=== PATIENT | male | born 1955 | race Caucasian/White ===

== ENCOUNTER → 2016-07-11 | Outpatient (CLI) | payer OTHER ==
[~2016-07-11] MED LIST: APPLE CIDER PO; ATOR10TA82 PO; CIPR1TAB11 PO; CITA20TA9 PO; GABA-112 PO; GABA1CAP5 PO; GLC/500 PO; METF-384 PO; MULT-506 PO; NAPR1TAB9 PO; TRMO115 TOP; ZOLP10TA PO
--- NOTE | 2016-07-11 10:36 | DIAGNOSTIC IMAGING REPORT ---
CHEST 2 VIEWS ROUTINE CLINICAL HISTORY: R04.2 HemoptysisRAD COMPARISON STUDY: 12/02/2014 FINDINGS: The heart is the upper limits of normal in size. There are bilateral airspace opacities with a perihilar distribution. There is subtle residual thickening. There are no pleural effusions. There is no pneumothorax.[ IMPRESSION: Bilateral pulmonary airspace opacities. The findings could represent pulmonary hemorrhage, a pneumonia, or pulmonary edema. Clinical and radiographic follow-up is recommended. Electronically signed by: Shan Alvarado M.D. 07/11/2016 10:34 AM Dictated Date/Time: 07/11/2016 10:32 AM
[2016-07-11 12:37] LABS: BASO % 0.4 %; BASO ABS # 0.07 K/uL (0-0.2); COMPLETE YES; EOS % 3.8 %; HEMATOCRIT 40.7 % (42-52); IG% 0.7 %; LYMPH % 17.9 %; LYMPH ABS # 2.93 K/uL (1.2-3.4); MEAN CELL VOLUME 92.1 fL (80-100); MEAN CORPUSCULAR HEMOGLOBIN 30.5 pg (25-34); MEAN CORPUSCULAR HGB CONC 33.2 g/dl (32-36); MEAN PLATELET VOLUME 11.1 fL (7.4-10.4); MONO % 6.2 %; PLATELET COUNT 516 K/uL (130-400); RED BLOOD COUNT 4.42 M/uL (4.7-6.1); WHITE BLOOD COUNT 16.37 K/uL (4.8-10.8)
[2016-07-11 12:46] LABS: PROTHROMBIN TIME (PATIENT) 10.7 SECONDS (9.0-12.0)
[2016-07-11 12:57] LABS: ALT/SGPT 31 U/L (12-78); BLOOD UREA NITROGEN 20 mg/dl (7-18); BUN/CREATININE RATIO 22.1 (10-20); CARBON DIOXIDE 27 mmol/L (21-32); CHLORIDE 105 mmol/L (98-107); CREATININE 0.89 mg/dl (0.60-1.40); GLUCOSE 117 mg/dl (70-99); POTASSIUM 4.1 mmol/L (3.5-5.1); SODIUM 140 mmol/L (136-145)
[2016-07-11 13:00] LABS: ALB/GLOB RATIO 0.8 (0.9-2); ALKALINE PHOSPHATASE 101 U/L (45-117); AST/SGOT 19 U/L (15-37)
[2016-07-11 13:05] LABS: CALCIUM 9.8 mg/dl (8.5-10.1)
== END | disposition home or self-care (01) ==
LOC: C.RAD1850 10:07
PROVIDERS: ATTEND Nurse Practitioner Family
DX: R04.2 Hemoptysis (principal)

== ENCOUNTER → 2016-07-11 | Outpatient (CLI) | payer OTHER ==
[~2016-07-11] MED LIST changes: +OPTIRAY 320 IV PRN
--- NOTE | 2016-07-11 15:49 | DIAGNOSTIC IMAGING REPORT ---
CT ANGIOGRAM OF THE CHEST CLINICAL HISTORY: Hemoptysis COMPARISON STUDY: Chest CT dated 03/21/2015, chest x-ray dated 07/11/2016 TECHNIQUE: Following the IV administration of 116 mL of Optiray-320, CT angiogram of the thorax was performed from the thoracic inlet to the lung bases utilizing the pulmonary embolus protocol. Images are reviewed in the axial, sagittal, and coronal planes. IV contrast was administered without complication. MIP imaging was performed. CT DOSE: 595.50 mGycm FINDINGS: There is slight increase in the moderate mediastinal lymphadenopathy. An index right paratracheal lymph node measures 13 mm in short axis. It previously measured 11 mm in short axis. There is a lower right paratracheal lymph node measuring 18 mm in short axis. Previously measured 15 mm in short axis. There is bulky subcarinal lymphadenopathy. There are borderline enlarged hilar lymph nodes. There is no axillary lymphadenopathy. There was no evidence of thoracic aortic dilatation. There are coronary artery calcifications present. There were no pulmonary artery filling defects to indicate acute pulmonary embolism. No pleural effusions are visualized. There is radiographic evidence of emphysema most pronounced in the lung apices. There are moderately extensive airspace opacities within the right lower lobe right middle lobe and right upper lobe. Airspace opacities are also present within the left lower lobe. There are additional groundglass nodules within left upper lobe. IMPRESSION: 1. No CT evidence of acute pulmonary embolism 2. Increasing moderate mediastinal lymphadenopathy 3. Moderately extensive bilateral multilobar airspace opacities. The appearance is nonspecific. The lesions could represent pulmonary hemorrhage, atypical pulmonary edema, or an inflammatory/infectious process. Electronically signed by: Shan Alvarado M.D. 07/11/2016 3:47 PM Dictated Date/Time: 07/11/2016 3:41 PM
== END | disposition home or self-care (01) ==
LOC: C.CTS 14:36
PROVIDERS: ATTEND Nurse Practitioner Family
DX: R04.2 Hemoptysis (principal); R59.0 Localized enlarged lymph nodes; J98.4 Other disorders of lung

== ENCOUNTER → 2016-08-26 | Outpatient (CLI) | payer OTHER ==
[~2016-08-26] MED LIST changes: -OPTIRAY 320 IV PRN
--- NOTE | 2016-08-26 16:27 | DIAGNOSTIC IMAGING REPORT ---
CHEST 2 VIEWS ROUTINE CLINICAL HISTORY: R04.2 [id number] Lung infiltrate on [id number] dyspnea COMPARISON STUDY: 07/11/2016 FINDINGS: Improved bilateral parenchymal infiltrative change and/or pulmonary edema. Persistent residual interstitial and bronchovascular prominence. Heart is unremarkable in overall size. Diaphragms are smooth. IMPRESSION: Improving pulmonary edema Electronically signed by: Reji Mak M.D. 08/26/2016 4:26 PM Dictated Date/Time: 08/26/2016 4:25 PM
[2016-08-26 16:57] LABS: BASO % 0.7 %; BASO ABS # 0.08 K/uL (0-0.2); COMPLETE YES; EOS % 6.7 %; HEMATOCRIT 41.6 % (42-52); IG% 0.6 %; LYMPH % 29.5 %; LYMPH ABS # 3.59 K/uL (1.2-3.4); MEAN CELL VOLUME 89.8 fL (80-100); MEAN CORPUSCULAR HGB CONC 33.4 g/dl (32-36); MEAN PLATELET VOLUME 9.8 fL (7.4-10.4); MONO % 7.5 %; PLATELET COUNT 457 K/uL (130-400); RED BLOOD COUNT 4.63 M/uL (4.7-6.1); WHITE BLOOD COUNT 12.16 K/uL (4.8-10.8)
[2016-08-26 17:05] LABS: ALLEN TEST POS (POS); ARTERIAL BLD GAS O2 SATURATION 95.4 % (90-95); ARTERIAL BLOOD GAS HCO3 24 mmol/L (19-24); ARTERIAL BLOOD GAS PO2 77 mmHg (80-95); ARTERIAL BLOOD GAS pH 7.47 (7.35-7.45); O2 ADMINISTRATION ROOM AIR
[2016-08-26 17:12] LABS: INR 0.9 (0.9-1.1); PROTHROMBIN TIME (PATIENT) 10.1 SECONDS (9.0-12.0)
[2016-08-26 17:33] LABS: ALB/GLOB RATIO 0.8 (0.9-2); ALKALINE PHOSPHATASE 93 U/L (45-117); ALT/SGPT 44 U/L (12-78); AST/SGOT 29 U/L (15-37); BLOOD UREA NITROGEN 22 mg/dl (7-18); BUN/CREATININE RATIO 24.5 (10-20); CALCIUM 8.7 mg/dl (8.5-10.1); CARBON DIOXIDE 26 mmol/L (21-32); CHLORIDE 107 mmol/L (98-107); CREATININE 0.88 mg/dl (0.60-1.40); GLUCOSE 163 mg/dl (70-99); POTASSIUM 4.2 mmol/L (3.5-5.1); SODIUM 141 mmol/L (136-145)
== END | disposition home or self-care (01) ==
LOC: C.RAD1850 15:56
PROVIDERS: ATTEND Internal Medicine Pulmonary Disease
DX: R04.2 Hemoptysis (principal); R91.8 Other nonspecific abnormal finding of lung field; K64.9 Unspecified hemorrhoids; J81.1 Chronic pulmonary edema

== ENCOUNTER → 2016-08-28 | Outpatient (CLI) | payer OTHER ==
[~2016-08-28] MED LIST changes: +OPTIRAY 320 IV PRN
[2016-08-28 10:45] LABS: BLOOD UREA NITROGEN 18 mg/dl (7-18); BUN/CREATININE RATIO 18.9 (10-20); CALCIUM 8.8 mg/dl (8.5-10.1); CARBON DIOXIDE 25 mmol/L (21-32); CHLORIDE 103 mmol/L (98-107); CREATININE 0.96 mg/dl (0.60-1.40); GLUCOSE 146 mg/dl (70-99); POTASSIUM 4.1 mmol/L (3.5-5.1); SODIUM 138 mmol/L (136-145)
[2016-08-28 10:48] LABS: CHOLESTEROL 186 mg/dl (0-200); CHOLESTEROL/HDL RATIO 4.3; HDL CHOLESTEROL 43 mg/dl; LDL CHOLESTEROL CALCULATED 120 mg/dl; TRIGLYCERIDES 114 mg/dl (0-150); VERY LOW DENSITY LIPOPROT CALC 23 mg/dl
--- NOTE | 2016-08-28 11:10 | DIAGNOSTIC IMAGING REPORT ---
CT SCAN OF THE CHEST WITH IV CONTRAST CLINICAL HISTORY: Hemoptysis. COMPARISON STUDY: Chest CT scans dated 07/11/2016 an 09/08/2014. TECHNIQUE: Following the IV administration of 118 cc of Optiray 320, CT scan of the thorax was performed from the thoracic inlet to the upper abdomen. Images are reviewed in the axial, sagittal, and coronal planes. IV contrast was administered without complication. CT DOSE: 915.91 mGy.cm FINDINGS: Thyroid: Imaged portions of the thyroid gland are normal in size and attenuation. Thoracic aorta: There is mild atherosclerotic calcification of the thoracic aorta, which is normal in caliber and demonstrates standard 3-vessel arch anatomy. No dissection is seen. Pulmonary vasculature: The main pulmonary arteries are mildly enlarged suggesting pulmonary artery hypertension. There are no filling defects identified in the central pulmonary vessels to indicate pulmonary embolus. Note that this examination was not protocoled for evaluation of the pulmonary arteries. Heart: The heart is mildly enlarged and there is trace pericardial effusion. The coronary arteries are densely calcified. Lungs and pleural spaces: Emphysematous change is again noted. Diffuse subpleural reticulation is identified. There are foci of patchy groundglass consolidation seen throughout both lungs, greatest in the lingula, right middle lobe, and the lower lobes. This has significantly cleared from 07/11/2016. No pleural effusion is seen. The trachea and central airways are clear. Tiny calcified granulomas are observed. Mediastinum: There is mediastinal lymphadenopathy. A pretracheal node on image #117 measures 2.8 x 2.0 cm. A subcarinal node on image #146 measures 3.4 x 2.0 cm. This is similar to 07/11/2016 examination. Nancy: There is hilar adenopathy. Enlarged hilar nodes measure up to 1.3 cm in short axis. Axillae: There is no axillary lymphadenopathy. Lower neck: There are prominent supraclavicular lymph nodes. These measure up to 7 mm in short axis. Upper abdomen: The liver appears enlarged and steatotic. The spleen is not identified and presumed surgically absent. There are mildly enlarged gastrohepatic lymph nodes. These measure up to 10 mm in short axis. A celiac node on image #289 measures 12 mm short axis. The distal pancreas is surgically absent. Gynecomastia is noted. Skeletal structures: The skeletal structures are osteopenic. No lytic or blastic bony lesions are seen. IMPRESSION: 1. Cardiomegaly and emphysema. 2. There is patchy groundglass consolidation seen throughout both lungs as detailed above. This has significantly cleared from 07/11/2016. The second represents a resolving infectious/inflammatory pneumonitis. Resolving pulmonary edema or hemorrhage could have a similar appearance and clinical correlation will be required. [address] follow-up is recommended to document complete resolution. 3. Mediastinal and hilar lymphadenopathy are similar to previous. This is greater than expected for a reactive process, and could be seen in the setting of a lymphoproliferative disorder or possibly sarcoidosis. Clinical correlation will be essential. This should also be reassessed at follow-up. 4. Enlarged lymph nodes are also seen in the upper abdomen. 5. The spleen and distal pancreas are surgically absent. 6. Hepatomegaly and hepatic steatosis. 7. Additional findings as above. Electronically signed by: Omar Sumner M.D. 08/28/2016 11:09 AM Dictated Date/Time: 08/28/2016 10:59 AM
[2016-08-28 11:13] LABS: ESTIMATED AVERAGE GLUCOSE 151 mg/dl; HA1C FLAG Normal (Normal)
== END | disposition home or self-care (01) ==
LOC: C.CTS 09:50
PROVIDERS: ATTEND Internal Medicine Critical Care Medicine
DX: R04.2 Hemoptysis (principal); I51.7 Cardiomegaly; J43.9 Emphysema, unspecified; R91.8 Other nonspecific abnormal finding of lung field; R59.1 Generalized enlarged lymph nodes; R16.0 Hepatomegaly, not elsewhere classified; K76.0 Fatty (change of) liver, not elsewhere classified

== ENCOUNTER 2016-09-16 07:13 | Day surgery (SDC) | payer OTHER ==
[2016-09-04 12:33] VITALS: BMI 35.0
[~2016-09-16] VITALS: Ht 177.8 cm; Wt 110.5 kg
[~2016-09-16 07:13] MED LIST changes: -ATOR10TA82 PO; -CIPR1TAB11 PO; -GABA-112 PO; -GLC/500 PO; +LACTATED RINGER'S 1000ML 1,000 ML IV SCH; -OPTIRAY 320 IV PRN
--- NOTE | 2016-09-16 07:28 | History and Physical ---
History & Physical Date Sep 16, 2016. Chief Complaint Hemoptysis with associated pulmonary nodules, pulmonary infiltrates and mediastinal lymphadenopathy: History of Present Illness The patient is a 60 y/o male her for work-up for hemoptysis with associated pulmonary nodules, pulmonary infiltrates and mediastinal lymphadenopathy. He was initially referred to Dr Grzegorz Campo by [facility]. The patient began coughing up some blood mixed with mucus in June. He states he did not feel like he had a cold. He also noted night sweats and chills. The patient had a chest x-ray done July 11. This showed bilateral lung infiltrates. A CT scan of the chest was then done. This revealed extensive airspace opacities within the right lower lobe, right middle lobe, right upper lobe, and left lower lobe. There was also some slight increase in moderate mediastinal adenopathy. One of the nodes measured 13 millimeters and previously was 11. There was another or lymph node in the right para-tracheal area measuring 18 millimeters that previously had been 15 millimeters. Mediastinal adenopathy had been seen previously at least as far back as December 02, 2014. In fact he previously had a mediastinoscopy done by Dr. Glaser that noted lymphnode tissue with anthracotic changes, 09/26/14. The patient has a history of lung nodules previously followed by Dr. Kelly pulmonary. Ultimately the tiny nodules had disappeared. During the time of that workup he was found to have a pancreatic mass. The patient states he has pancreatic cancer. He underwent removal of the pancreatic tumor and splenectomy in November of 2014. He subsequently developed an abscess in the abdomen and had some type of drainage or surgical procedure in May of 2015. Patient quit smoking 14 years ago. He smoked 2 or more packs per day for 28 years. Alcohol use is described as 4 beers per day. The patient has been wearing 2 liters of oxygen at nighttime since his hospital stay when he had the surgery. They determined that he had a low oxygen level at night. He was never referred for a sleep study. ROS: night sweats, lethargy, fatigue, difficulty sleeping, nocturia, diffuse myalgias and arthralgias especially in the mid back and low back areas, neuropathy with numbness. Pertinent family history is that his father age 62 from pancreatic cancer. One sister is living has some type of autoimmune disease. His mother is still living and in good health at age 82. 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 [id number] Past Medical/Surgical History Medical Problems: 1. Acquired asplenia 2. Anemia 3. Bilateral upper abdominal pain 4. Blood in urine 5. Breast lump 6. Chronic obstructive pulmonary disease ( 7. Colon polyps 8. Dermatitis 9. Diabetes mellitus, type 2 10. Diabetic peripheral neuropathy 11. Diverticulosis 12. Dyshidrotic eczema 13. Elevated alkaline phosphatase level 14. Elevated ferritin 15. Elevated liver enzymes 16. LUIGI (generalized anxiety disorder) 17. Hemoptysis 18. Hemorrhoids 19. Hyperlipidemia 20. Leukocytosis 21. Lung infiltrate on CT 22. Lymphadenopathy 23. Microscopic hematuria 24. History of Neuroendocrine tumor of pancreas 25. Sleep apnea 26. Pancreatic Ca Surgical History 1. Biopsy Lung Percutaneous 2. Dental Surgery 3. Distal Pancreatectomy 4. Splenectomy Additional History Hepatic Disease: No Endocrine Disorder: Yes Kidney Disease: No Hypertension: No Heart Disease: No Bleeding Tendencies: No Infectious Diseases: No Allergies Coded Allergies: No Known Allergies (Unverified , 09/04/16) Home Medications Scheduled Citalopram Hydrobromide (Celexa), 40 MG PO QPM Gabapentin (Neurontin), 400 MG PO TID Metformin Hcl (Glucophage), 1,000 MG PO BID Multivitamin (Multivitamin), 1 TAB PO HS Naproxen (Aleve), 220 MG PO BID Zolpidem Tartrate (Ambien), 10 MG PO HS [Apple Cider], 2 TAB PO QAM Scheduled PRN Triamcinolone Acet (Triamcinolone Acetonide), 1 APPLN TOP BID PRN for PRN Physical Examination Skin: warm/dry, no rash Eyes: normal inspection, EOMI, sclerae normal ENT: normal ENT inspection, pharynx normal Head: normocephalic, atraumatic Neck: supple, no adenopathy, trachea midline Respiratory/Chest: lungs clear, normal breath sounds, no respiratory distress Cardiovascular: regular rate, rhythm, no edema, no murmur Abdomen / GI: normal bowel sounds, non tender Back: normal inspection Extremities: normal inspection, normal range of motion Neurologic/Psych: no motor/sensory deficits, alert, normal reflexes, oriented x 3 Diagnosis Hemoptysis with associated pulmonary nodules, pulmonary infiltrates and mediastinal lymphadenopathy ASA Classification: ASA Class III Plan of Treatment EBUS bronchoscopy, transbronchial biopsies and bronchial alveolar lavage for evaluation of possible: Sarcoidosis, atypical infections/tuberculosis, hypersensitivity pneumonitis or cancer or line up examiner's pneumoconiosis.
[2016-09-16 07:50] VITALS: BP 123/85; PULSE 82; TEMP 37; O2SAT 95; Ht 177.8 cm; Wt 110.5 kg
--- NOTE | 2016-09-16 07:58 | History & Physical Bridge Note ---
H&P Re-Evaluation Bridge Note: I have examined the patient, reviewed the History & Physical and in the interval since the performance of the History & Physical I have noted the following changes of clinical significance: No changes noted
[2016-09-16] MEDS ORDERED: ONDANSETRON INJ 2 MG/ML 2 ML VIAL IV PRN (08:45)
[2016-09-16] MEDS ORDERED: FENTANYL CITRATE INJ 50 MCG/1 ML 2 ML VIAL IV PRN (08:45)
[2016-09-16] MEDS ORDERED: HYDROmorphone INJ 1 MG/ML SYR IV PRN (08:45)
[2016-09-16] MEDS ORDERED: EpHEDrine SULFATE INJ 50 MG/ML AMP IV PRN (08:45)
[2016-09-16] MEDS ORDERED: ATROPINE SULFATE 0.1 MG/ML 5ML SYR IV PRN (08:45)
[2016-09-16] MEDS ORDERED: MIDAZOLAM HCL 1 MG/ML 2ML VIAL ONE (09:55)
[2016-09-16] MEDS ORDERED: FENTANYL CITRATE INJ 50 MCG/1 ML 2 ML VIAL ONE ×2 (09:55→10:42)
[2016-09-16] MEDS ORDERED: LIDOCAINE HCL 2% 2 ML VIAL (20MG/ML) ONE (10:35)
[2016-09-16] MEDS ORDERED: ONDANSETRON INJ 2 MG/ML 2 ML VIAL ONE (10:35)
[2016-09-16] MEDS ORDERED: PROPOFOL IV EMULSION 10 MG/ML 20 ML VIAL IV ONE ×2 (10:35→11:31)
[2016-09-16] MEDS ORDERED: ROCURONIUM BROMIDE 10 MG/ML 5 ML VIAL ONE (10:35)
[2016-09-16] MEDS ORDERED: GLYCOPYRROLATE INJ 0.2 MG/ML VIAL ONE (10:35)
[2016-09-16] MEDS ORDERED: DEXAMETHASONE SOD INJ 4 MG/ML VIAL ONE (10:35)
[2016-09-16] MEDS ORDERED: PHENYLEPHRINE HCL INJ 10 MG/ML VIAL ONE (10:53)
[2016-09-16] MEDS ORDERED: EpHEDrine SULFATE 50MG/5ML SYR ONE (10:53)
--- NOTE | 2016-09-16 12:00 | DIAGNOSTIC IMAGING REPORT ---
CHEST 1 VIEW FRONTAL CLINICAL HISTORY: Left lung biopsy. Bronchoscopy. COMPARISON STUDY: Chest CT 08/28/2016. FINDINGS: Total fluoroscopy time was 1 minute and 7 seconds. A single fluoroscopic spot image of the left lower chest was submitted. There is a bronchoscope seen within the left lower lobe. IMPRESSION: Fluoroscopy provided for a left-sided bronchoscopy. Electronically signed by: Leobardo Nelson M.D. 09/16/2016 11:59 AM Dictated Date/Time: 09/16/2016 11:58 AM
--- NOTE | 2016-09-16 12:04 | Bronchoscopy Procedure Note ---
Bronchoscopy Procedure Note Procedure: Flexible-Bronchoscopy, EBUS, Tbbx, GETA, BAL Consent: Obtained through the patient placed into the chart Preprocedural diagnosis: Hemoptysis (Mediastinal lymphadenopathy, Lingular GGO) Postprocedural diagnosis: Mediastinal lymphadenopathy, Lingular GGO Analgesia: GETA Sedation: GETA Procedure: The Olympus video bronchoscope and EBUS scope were used for this procedure Initially the flexible bronchoscope was used for evaluation of the airways. The ET tube was notably 4cm above the level of the belle. Trachea: Visualized portion of the trachea was anatomically within normal limits Belle: Anatomically within normal limits Right bronchial tree: Right mainstem bronchus: Anatomically within normal limits Right upper lobe: Anatomically within normal limits Bronchus intermedius: Anatomically within normal limits Right middle lobe: Anatomically within normal limits Right lower lobe: Anatomically within normal limits Findings: No significant findings noted Left bronchial tree: Left mainstem bronchus: Anatomically within normal limits Left upper lobe: Anatomically within normal limits Lingula: Anatomically within normal limits Left lower lobe: Anatomically within normal limits Findings: No significant findings noted EBUS/BRUNO: Tbbx Ramona Stations: 7: # of passes 4 R4: # of passes passes 3 L11: # of passes 3 BAL: Lingula Tbbx: Lingula x6 under fluoroscopic guidance Complications: None Follow-up: PACU
--- NOTE | 2016-09-16 12:13 | Anesthesiology Progress Note ---
Anesthesia Post Op Note Date & Time Sep 16, 2016 at 12:13 Vital Signs Pain Intensity: 0 Vital Signs Past 12 Hours Date Time Temp Pulse Resp B/P (MAP) Pulse Ox O2 Delivery O2 Flow Rate FiO2 09/16/16 12:00 90 16 120/77 96 Mask 10 09/16/16 11:50 96 16 126/89 97 Mask 10 09/16/16 11:44 36.6 98 16 124/88 97 Mask 10 09/16/16 07:50 37 82 18 123/85 (98) 95 Room Air Notes Mental Status: alert / awake / arousable, participated in evaluation Pt Amnestic to Procedure: Yes Nausea / Vomiting: adequately controlled Pain: adequately controlled Airway Patency, RR, SpO2: stable & adequate BP & HR: stable & adequate Hydration State: stable & adequate Anesthetic Complications: no major complications apparent
[2016-09-16 12:34] VITALS: BP 116/78; PULSE 87; TEMP 36.7; O2SAT 97
--- NOTE | 2016-09-16 12:36 | DIAGNOSTIC IMAGING REPORT ---
CHEST ONE VIEW PORTABLE CLINICAL HISTORY: s/p Tbbx of the Lingula COMPARISON STUDY: Chest radiograph August 26, [address] August 28, 2016. FINDINGS: There is no pneumothorax or pleural effusion. Cardiomediastinal silhouette is stable. There is minimal left lower lung opacity. IMPRESSION: 1. No pneumothorax. 2. Minimal left lower lung opacity. Electronically signed by: González Goncalves M.D. 09/16/2016 12:35 PM Dictated Date/Time: 09/16/2016 12:24 PM
[2016-09-16 13:08] VITALS: BP 111/64; PULSE 70; TEMP 36.6; O2SAT 95
--- NOTE | 2016-09-16 13:14 | Discharge Instructions ---
Discharge Instructions Date of Service Sep 16, 2016. Admission Reason for Admission: Hemoptysis, Lymphadenopathy;Pre-Op Discharge Discharge Diagnosis / Problem: Mediastinal Lymphadeonpathy with Lingular opacifications Discharge Goals Goal(s): Diagnostic testing Activity Recommendations Activity Limitations: resume your previous activity . Current Hospital Diet Patient's current hospital diet: N/A Discharge Diet Recommended Diet: Regular Diet Procedures Procedures Performed: Endobronchial Ultrasound Guided Transbronchial with 6 biopies including lingula,Transtracheal and transbronchial needle nodule status 7, R4,L11. Bronchial aveolar lavage, lingula. Pending Studies Studies pending at discharge: yes List of pending studies: Microiology and Cytopathology Laboratory Results Hemoglobin A1c Test 08/28/16 10:00 Range/Units Estimated Average Glucose 151 mg/dl Hemoglobin A1c 6.9 H 4.5-5.6 % Lipid Panel Test 08/28/16 10:00 Range/Units Triglycerides Level 114 0-150 mg/dl Cholesterol Level 186 0-200 mg/dl HDL Cholesterol 43 mg/dl Cholesterol/HDL Ratio 4.3 LDL Cholesterol, Calculated 120 mg/dl Medical Emergencies . Who to Call and When: Medical Emergencies: If at any time you feel your situation is an emergency, please call 911 immediately. . Non-Emergent Contact Non-Emergency issues call your: [employer] Call Non-Emergent contact if: temperature is above 101.5 . . "Provider Documentation" section prepared by Jf Chester. . VTE Core Measure Inpt VTE Proph given/why not?: Treatment not indicated
[2016-09-16 13:35] VITALS: BP 111/72; PULSE 77; TEMP 36.7; O2SAT 96
== END 2016-09-16 13:40 | disposition home or self-care (01) ==
LOC: C.ACU 07:13
PROVIDERS: ATTEND Internal Medicine Critical Care Medicine
DX: R59.1 Generalized enlarged lymph nodes (principal); R04.2 Hemoptysis; R91.8 Other nonspecific abnormal finding of lung field; J44.9 Chronic obstructive pulmonary disease, unspecified; I10 Essential (primary) hypertension; E11.42 Type 2 diabetes mellitus with diabetic polyneuropathy; F41.1 Generalized anxiety disorder; E78.5 Hyperlipidemia, unspecified; Z79.899 Other long term (current) drug therapy; Z90.49 Acquired absence of other specified parts of digestive tract; Z87.891 Personal history of nicotine dependence; Z83.3 Family history of diabetes mellitus; Z82.49 Family history of ischemic heart disease and other diseases of the circulatory system; Z80.0 Family history of malignant neoplasm of digestive organs; Z83.6 Family history of other diseases of the respiratory system

== ENCOUNTER → 2016-12-15 | Outpatient (CLI) | payer OTHER ==
[~2016-12-15] MED LIST changes: -LACTATED RINGER'S 1000ML 1,000 ML IV SCH
[2016-12-15 18:08] LABS: THYROID STIMULATING HORMONE 1.14 uIu/ml (0.300-4.500)
== END | disposition home or self-care (01) ==
LOC: C.LABPBG 14:40
PROVIDERS: ATTEND Nurse Practitioner Adult Health
DX: L30.9 Dermatitis, unspecified (principal); R53.83 Other fatigue

== ENCOUNTER → 2016-12-22 | Outpatient (CLI) | payer OTHER ==
--- NOTE | 2016-12-22 09:23 | DIAGNOSTIC IMAGING REPORT ---
(LIVER) ABDOMEN LIMITED CLINICAL HISTORY: 61 years-old Male presenting with HEPATIC DYSFUNCTION. TECHNIQUE: Real-time grayscale and limited color Doppler ultrasound imaging of the abdomen limited to the right upper quadrant was performed. COMPARISON: 10/13/2014. FINDINGS: Pancreas: Largely obscured due to overlying bowel gas. Liver: Hyperechogenic parenchyma with heterogeneous echotexture, likely indicating fibrosis or steatosis. The liver measures 18.8 cm in maximal sagittal dimension. No sonographic evidence of hepatic mass. Main portal vein patent with normal directional flow. Biliary: No intrahepatic biliary ductal dilatation. Common bile duct measures up to 5-6 mm in diameter. Gallbladder: Gallstones noted at the gallbladder neck. Nondependent isoechoic 4 mm focus along the wall consistent with polyp, likely cholesterol polyp, nonspecific change from prior. No significant gallbladder wall thickening, pericholecystic fluid, or inflammatory change. Right kidney: Normal in appearance. No hydronephrosis. Ascites: None. IMPRESSION: 1. Hyperechogenic liver parenchyma with heterogeneous echotexture, likely indicating fibrosis or steatosis. 2. Mild hepatomegaly. 3. Cholelithiasis. No evidence of cholecystitis or biliary ductal dilatation. 4. Subcentimeter gallbladder polyp, likely cholesterol polyp. Electronically signed by: Paco Burns M.D. 12/22/2016 9:22 AM Dictated Date/Time: 12/22/2016 9:19 AM
== END | disposition home or self-care (01) ==
LOC: C.ULTR 08:30
PROVIDERS: ATTEND Nurse Practitioner Adult Health
DX: K76.9 Liver disease, unspecified (principal); R16.0 Hepatomegaly, not elsewhere classified; K80.20 Calculus of gallbladder without cholecystitis without obstruction

== ENCOUNTER → 2017-01-15 | Outpatient (CLI) | payer OTHER ==
--- NOTE | 2017-01-15 10:19 | DIAGNOSTIC IMAGING REPORT ---
LEFT WRIST 4 VIEWS CLINICAL HISTORY: Arthritis. FINDINGS: 4 views of the left wrist are obtained. No prior studies are available for comparison at the time of dictation. The skeletal structures are well mineralized. No fracture is seen. The joint spaces of the wrist are maintained. No bony erosion is identified. The overlying soft tissues are within normal limits. IMPRESSION: Unremarkable radiographic assessment of the left wrist. Electronically signed by: Omar Sumner M.D. 01/15/2017 10:17 AM Dictated Date/Time: 01/15/2017 10:16 AM
--- NOTE | 2017-01-15 10:20 | DIAGNOSTIC IMAGING REPORT ---
R HAND MIN 3 VIEWS ROUTINE CLINICAL HISTORY: DEFORMITY arthritis. Pain. COMPARISON: None. DISCUSSION: Moderate generalized degenerative change. Slight deformity fifth metacarpal. The secondary to old posttraumatic change. Mild degenerative change interphalangeal joints. Cortical margins appear to be intact. There are no significant marginal erosions. There is no evidence for soft tissue swelling. IMPRESSION: Mild/moderate degenerative change. No acute process. The above report was generated using voice recognition software. It may contain grammatical, syntax or spelling errors. Electronically signed by: Reji Mak M.D. 01/15/2017 10:19 AM Dictated Date/Time: 01/15/2017 10:18 AM
--- NOTE | 2017-01-15 10:22 | DIAGNOSTIC IMAGING REPORT ---
L HAND MIN 3 VIEWS ROUTINE CLINICAL HISTORY: DEFORMITY pain COMPARISON: None. DISCUSSION: Mild degenerative change of the interphalangeal joints. Minimal degenerative changes intercarpal as well as carpometacarpal joints. No well-defined acute bony abnormality. No marginal erosions. There is no evidence for soft tissue swelling. IMPRESSION: Mild degenerative change. No acute process. The above report was generated using voice recognition software. It may contain grammatical, syntax or spelling errors. Electronically signed by: Reji Mak M.D. 01/15/2017 10:20 AM Dictated Date/Time: 01/15/2017 10:20 AM
--- NOTE | 2017-01-15 10:22 | DIAGNOSTIC IMAGING REPORT ---
R WRIST MIN 3 VIEWS ROUTINE CLINICAL HISTORY: M21.939 Deformity, wrist [id number] COMPARISON: None. DISCUSSION: Minimal degenerative change of the intercarpal as well as carpometacarpal joints. No significant marginal erosions. No evidence for fracture or dislocation. No abnormal soft tissue calcifications. There is no evidence for soft tissue swelling. IMPRESSION: Minimal degenerative change. No acute process. The above report was generated using voice recognition software. It may contain grammatical, syntax or spelling errors. Electronically signed by: Reji Mak M.D. 01/15/2017 10:21 AM Dictated Date/Time: 01/15/2017 10:20 AM
== END | disposition home or self-care (01) ==
LOC: C.RAD 09:10
PROVIDERS: ATTEND Nurse Practitioner Adult Health
DX: M21 Other acquired deformities of limbs (principal)

== ENCOUNTER → 2017-06-30 | Outpatient (CLI) | payer OTHER ==
[~2017-06-30] MED LIST changes: +GABA-1220 PO; -GABA1CAP5 PO
--- NOTE | 2017-06-30 10:54 | DIAGNOSTIC IMAGING REPORT ---
(CHEST) THORAX WITHOUT CLINICAL HISTORY: 61 years-old Male presenting with R59.0 Mediastinal lymphadenopathy Patient scheduled at [facility] June. TECHNIQUE: Multidetector CT imaging of the chest was performed without the use of intravenous contrast. IV contrast: None. A dose lowering technique was used consistent with the principles of ALARA (as low as reasonably achievable). COMPARISON: 08/28/2016. CT DOSE (mGy.cm): The estimated cumulative dose is 976.35 mGy.cm. FINDINGS: Support Clerk topogram: Unremarkable. On soft tissue windows, normal thyroid and thoracic inlet. Bilateral gynecomastia. Numerous prominent subcentimeter mediastinal lymph nodes measuring up to 15 mm in the short axis in the precarinal region, unchanged. Evaluation of sin limited without intravenous contrast. Atherosclerosis of the aorta. Normal heart size. Coronary artery calcification. No pericardial or pleural effusion. Hepatic steatosis. On lung windows, redemonstration of paraseptal and centrilobular emphysematous changes within the apical predominance. Minimal patchy groundglass opacity along the minor fissure in the right middle lobe. Subtle subpleural reticulation and minimal groundglass opacity in the anterior right upper lobe. Centrilobular groundglass opacity suggested in the superior segment of the right lower lobe and to a lesser extent the superior segment of the left lower lobe. Limited bronchiectasis is noted in the superior segment of the lingula as well as in the right middle lobe. Central airways patent. On bone windows, degenerative changes of the spine. IMPRESSION: 1. Minimal patchy groundglass opacity overall slightly less prevalent than on the prior exam from August and significantly less than one year ago. These nonspecific groundglass opacities can be seen in the setting of pulmonary hemorrhage as well as infection. However, given these findings and the patient's p-ANCA positive status combined with evidence of fibrotic lung changes demonstrated by bronchiectasis, these findings could represent microscopic polyangiitis. 2. Emphysema. 3. Persistent mediastinal lymphadenopathy. 4. Hepatic steatosis. Electronically signed by: Paco Burns M.D. 06/30/2017 10:52 AM Dictated Date/Time: 06/30/2017 10:43 AM
== END | disposition home or self-care (01) ==
LOC: C.CTS 10:19
PROVIDERS: ATTEND Internal Medicine Pulmonary Disease
DX: R59.0 Localized enlarged lymph nodes (principal); R91.8 Other nonspecific abnormal finding of lung field; J43.9 Emphysema, unspecified; K76.0 Fatty (change of) liver, not elsewhere classified

== ENCOUNTER 2018-06-07 10:02 | Inpatient (IN) ==
[2018-06-07] MEDS ORDERED: MAGNESIUM HYDROXIDE SUSP 30 ML UDC PO PRN (10:54)
[2018-06-07] MEDS ORDERED: ONDANSETRON INJ 2 MG/ML 2 ML VIAL IV PRN (10:54)
[2018-06-07] MEDS ORDERED: POLYETHYLENE (MIRALAX) 17 GM PACK PO PRN (10:54)
[2018-06-07] MEDS ORDERED: ALUMINUM/MAGNESIUM SUSP 30 ML UDC PO PRN (10:54)
[2018-06-07] MEDS ORDERED: INSULIN GLARGINE 20 UNIT SQ SCH (11:00)
--- NOTE | 2018-06-07 11:13 | History & Physical Report ---
Date of Service June 07, 2018 Assessment & Plan (1) Cellulitis: (2) Pancreatic cancer: (3) Hypertension: 62-year-old white male with history of hypertension , rectal bleeding , kidney disease renal failure, pancreatic cancer , pleural effusion admitted from 's office because of right lower extremity cellulitis right lower extremity cellulitis: failed outpatient oral antibiotic treatment History of pancreatic cancer possible immunocompromised Talked to Dr. Rankin, started Dapto and Rocephin, lab and blood culture sent, Has ordered Doppler ultrasound to rule out DVT hx of Hypertension, currently is 150/92, possible accelerated hypertension, hydralazine as needed for now, need to start some blood pressure medication depending on renal function Diabetic will check HbA1c, continue home dose of insulin, pharmacy glycemic control consultation Recent bronchitis /COPD exacerbation has been improved, is on tapering dose of oral prednisone required 10 days more to finish up the cough DVT prophylaxis is Lovenox, full code History of Present Illness Primary Care Provider: Harriet Carranza MD 62-year-old white male with history of hypertension , rectal bleeding , kidney disease renal failure, pancreatic cancer , pleural effusion admitted from 's office because of right lower extremity cellulitis Per report patient is having right lower extremity Medial side skin red and erythema associated tender, he has been follow-up with Dr. Rankin's office, was given Cefadroxil for several days, it has not getting better, antibiotic was changed to Doxycycline last Thursday which was 3 days ago, however, the local red erythema and pain is getting worse, and spreading up to medial thigh, therefore Dr. Rankin send him to the hospital. Patient reports occasional cough otherwise no fever and chill, denies diarrhea constipation Allergies Allergy/AdvReac Type Severity Reaction Status Date / Time No Known Allergies Allergy Unverified 09/16/16 07:56 Home Medications Home Medications Medication Instructions Recorded Confirmed Type Basaglar KwikPen U-100 Insulin 20 units SUBCUT QAM 06/07/18 06/07/18 History Celexa 40 mg PO HS 06/07/18 06/07/18 History cefadroxil PO BID 06/07/18 History doxycycline calcium 100 mg PO BID 06/07/18 06/07/18 History gabapentin 400 mg PO TID 06/07/18 06/07/18 History leflunomide 20 mg PO HS 06/07/18 06/07/18 History metformin 1,000 mg PO BID 06/07/18 06/07/18 History prednisolone 40 mg PO QAM 06/07/18 History zolpidem [Ambien] 10 mg PO HS PRN 06/07/18 06/07/18 History Past Med/Surg History Medical History Arthritis Black lung disease Diabetes mellitus Pancreatic cancer Porphyria Sleep apnea Surgical History H/O resection of pancreas H/O splenectomy Social History Preferred Language: Citizen Of [place] Communication Ability: Effective Journal Clerk Required: No Beliefs That Will Affect Care: None Current Living Situation: Spouse Other Information That Helps Us Care for You: No Feels Safe at Home: Yes Safety Concerns: Feels Safe At This Time Smoking Status: Former smoker Hx Alcohol Use: Yes Hx Substance Use: No Review of Systems All systems reviewed & are unremarkable except as noted in HPI & below Physical Exam Vital Signs (Past 24 Hours): Last Vital Signs Temp 36.8 C 06/07/18 10:28 Pulse 89 06/07/18 10:28 Resp 17 06/07/18 10:28 BP 158/92 H 06/07/18 10:28 Pulse Ox 98 06/07/18 10:28 Physical Exam: General Appearance: WD/WN, mild obesity, pleasant, no apparent distress, Eyes: normal inspection, PERRL, EOMI, sclerae normal ENT: normal ENT inspection, hearing grossly normal, pharynx normal Neck: supple, no adenopathy, thyroid normal, no JVD, no carotid bruits, trachea midline Respiratory/Chest: chest non-tender, normal breath sounds, no respiratory distress, no accessory muscle use, breath sounds, rales, wheezing Cardiovascular: regular rate, rhythm, no JVD, no murmur Abdomen: normal bowel sounds, non tender, soft, no organomegaly, Extremities: Left lower extremity ankle minimal edema, medial part has erythema spreading up to medal thigh, local mild tender in palpation, no open wound or drainages normal range of motion, non-tender, normal inspection, no calf tenderness, normal capillary refill, pelvis stable, joint has no limited range of motion, capillary refill is normal, no cyanosis clubbing Neurologic/Psychiatric: baton twirler II-XII nml as tested, no motor/sensory deficits, alert, normal mood/affect, oriented x 3 Skin: normal color, warm/dry, no rash Lymphatic: no adenopathy Results & Data Laboratory Results pending Diagnostic Findings pending
[2018-06-07] MEDS ORDERED: HydrALAZINE HCL 20 MG/ML VIAL IV PRN (11:28)
[2018-06-07] MEDS ORDERED: DAPTOmycin 300 MG in SYRINGE 0 ML IV ONE (11:30)
[2018-06-07 11:50] LABS: Basophils # (auto) 0.01 K/uL (0-0.2); Basophils % (auto) 0.1 %; Hematocrit (blood only) 43.4 % (42-52); Hemoglobin 14.7 g/dL (14.0-18.0); Immature Granulocytes # (auto) 0.09 K/uL (0.00-0.02); Immature Granulocytes % (auto) 0.5 %; Lymphocytes # (auto) 1.36 K/uL (1.2-3.4); Mean Corpuscular Volume 90.6 fL (80-100); Mean Platelet Volume 10.9 fL (7.4-10.4); Monocytes # (auto) 1.04 K/uL (0.11-0.59); Monocytes % (auto) 6.1 %; Neutrophils # (auto) 14.56 K/uL (1.4-6.5); Neutrophils % (auto) 85.3 %; Nucleated RBC # (auto) 0.02 K/uL (0-0); Nucleated RBC % (auto) 0.1 %; Platelet Count 444 K/uL (130-400); RDW Coefficient of Variation 15.1 % (11.5-14.5); Red Blood Count 4.79 M/uL (4.7-6.1); White Blood Count 17.06 K/uL (4.8-10.8)
[2018-06-07] MEDS ORDERED: PHARMACY GLYCEMIC MGMT CONSULT PRN (11:59)
[2018-06-07] MEDS: cefTRIAXone SODIUM 1,000 MG in DEXTROSE 5% 50 ML IV SCH (12:05)
[2018-06-07 12:06] LABS: Prothrombin Time 10.3 Seconds (9.0-12.0)
[2018-06-07 12:07] LABS: Mean Corpuscular Hgb Conc 33.9 g/dL (32-36)
[2018-06-07 12:19] LABS: Albumin Level 3.4 gm/dl (3.4-5.0); BUN Creatinine Ratio 22.6 (10-20); Bilirubin Direct 0.1 mg/dl (0-0.2); C Reactive Protein 0.33 mg/dl (0-0.29); Calcium 9.1 mg/dl (8.5-10.1); Creatinine Clr Calc Pharmacy 99.6 ml/min; Est GFR (African American) 93.3; Est GFR (Non-African American) 80.5; Potassium 4.3 mmol/L (3.5-5.1)
[2018-06-07 12:21] LABS: Bilirubin,Total 0.5 mg/dl (0.2-1); Total Protein 7.6 gm/dl (6.4-8.2)
[2018-06-07] MEDS: ACETAMINOPHEN 325 MG TAB PO PRN ×2 (12:39→20:56)
[2018-06-07] MEDS: ENOXAPARIN INJ 40 MG/0.4 ML SYR SQ SCH (13:17)
[2018-06-07 13:33] LABS: Estimated Average Glucose 212 mg/dl
--- NOTE | 2018-06-07 13:54 | Pharmacy Report ---
Pharmacy Abx/Gly Intl Consult - Date of Service June 07, 2018 - [facility] Pharmacy has been consulted by Dr. Mcgrath to manage glycemic control for this patient as per the Pharmacy & Therapeutics Committee approved dosing protocols. - Subjective The patient is a 62 year old M admitted on 06/07/18 10:09. - Objective Vital Signs (Past 12hrs): Vital Signs Temp Pulse Resp BP Pulse Ox 06/07/18 10:28 36.8 C 89 17 158/92 H 98 Accuchecks BSG (last 24hrs): 06/07/18 06/07/18 06/07/18 11:20 11:20 12:00 Glucose 286 H Cancelled POC Glucose 267 H HbA1c: Hemoglobin A1c 9.0 % (4.5-5.6) H 06/07/18 11:20 Lab Results (24hrs): Laboratory Results - last 24 hr 06/07/18 06/07/18 06/07/18 11:20 11:20 11:20 WBC 17.06 H RBC 4.79 Hgb 14.7 Hct 43.4 MCV 90.6 MCH 30.7 MCHC 33.9 RDW Std Deviation 50.0 H RDW Coeff of Shira 15.1 H Plt Count 444 H MPV 10.9 H Immature Gran % (Auto) 0.5 Neut % (Auto) 85.3 Lymph % (Auto) 8.0 [place] % (Auto) 6.1 Eos % (Auto) 0.0 Baso % (Auto) 0.1 Immature Gran # (Auto) 0.09 H Neut # (Auto) 14.56 H Lymph # (Auto) 1.36 [place] # (Auto) 1.04 H Eos # (Auto) 0.00 Baso # (Auto) 0.01 Absolute Nucleated RBC 0.02 H Nucleated RBC % (auto) 0.1 ESR 26 H PT INR Sodium 135 L Potassium 4.3 Chloride 102 Carbon Dioxide 27 Anion Gap 6.0 BUN 23 H Creatinine 1.01 Est Cr Clr Drug Dosing 99.6 Est GFR ( Amer) 93.3 Est GFR (Non-Af Amer) 80.5 BUN/Creatinine Ratio 22.6 H Glucose 286 H POC Glucose Estimat Average Glucose Hemoglobin A1c Calcium 9.1 Total Bilirubin 0.5 Direct Bilirubin 0.1 AST 20 ALT 36 Alkaline Phosphatase 102 C-Reactive Protein 0.33 H Total Protein 7.6 Albumin 3.4 06/07/18 06/07/18 06/07/18 11:20 11:20 11:30 WBC RBC Hgb Hct MCV MCH MCHC RDW Std Deviation RDW Coeff of Shira Plt Count MPV Immature Gran % (Auto) Neut % (Auto) Lymph % (Auto) [place] % (Auto) Eos % (Auto) Baso % (Auto) Immature Gran # (Auto) Neut # (Auto) Lymph # (Auto) [place] # (Auto) Eos # (Auto) Baso # (Auto) Absolute Nucleated RBC Nucleated RBC % (auto) ESR PT 10.3 INR 1.0 Sodium Cancelled Potassium Cancelled Chloride Cancelled Carbon Dioxide Cancelled Anion Gap Cancelled BUN Cancelled Creatinine Cancelled Est Cr Clr Drug Dosing Cancelled Est GFR ( Amer) Cancelled Est GFR (Non-Af Amer) Cancelled BUN/Creatinine Ratio Cancelled Glucose Cancelled POC Glucose Estimat Average Glucose 212 Hemoglobin A1c 9.0 H Calcium Cancelled Total Bilirubin Direct Bilirubin AST ALT Alkaline Phosphatase C-Reactive Protein Total Protein Albumin 06/07/18 06/07/18 11:30 12:00 WBC RBC Hgb Hct MCV MCH MCHC RDW Std Deviation RDW Coeff of Shira Plt Count MPV Immature Gran % (Auto) Neut % (Auto) Lymph % (Auto) [place] % (Auto) Eos % (Auto) Baso % (Auto) Immature Gran # (Auto) Neut # (Auto) Lymph # (Auto) [place] # (Auto) Eos # (Auto) Baso # (Auto) Absolute Nucleated RBC Nucleated RBC % (auto) ESR PT INR Sodium Potassium Chloride Carbon Dioxide Anion Gap BUN Creatinine Cancelled Est Cr Clr Drug Dosing Cancelled Est GFR ( Amer) Cancelled Est GFR (Non-Af Amer) Cancelled BUN/Creatinine Ratio Glucose POC Glucose 267 H Estimat Average Glucose Hemoglobin A1c Calcium Total Bilirubin Direct Bilirubin AST ALT Alkaline Phosphatase C-Reactive Protein Total Protein Albumin Micro Results: 06/07/18 11:20 Blood Culture - Pending Blood 06/07/18 11:29 Blood Culture - Pending Blood - Recent Pertinent Medications Recent Pertinent Medications/Risk Factors for Insulin Resist: Outpatient Anti-diabetic Regimen: * Basaglar 20 units daily * Metformin 1000mg BIDM * A1c = 9.0 % 06/07/18 - Assessment Assessment & Plan: ASSESSMENT: * Mr. Tony is a 62 year old male with Type 2 diabetes. His home regimen currently consists of Basaglar 20 units daily and Metformin 1000mg BIDM. His A1C, as of 06/07/18, is 9.0%. This is an improvement from his last A1C of 10.2% on 09/23/17, but would like to achieve an A1C closer to 7.5%. Patient also has a history of HTN, COPD and pancreatic cancer. * Patient is on a Prednisone Taper: 40mg today and tomorrow, and 10mg daily x 5 days starting 06/09/18 - Plan INPATIENT GLYCEMIC CONTROL: Oral Agents * Hold outpatient oral diabetes medications. Basal Insulin * Patient took his Basaglar 20 units before his surgery this morning. * Lantus scale is set for tonight: * 20 units if BSG <180 mg/dL * 25 units if BSG 180+ Bolus Insulin * NovoLog per scale ACHS or Q6hrs while NPO * Goal Range: Low 110 mg/dL - High 140 mg/dL * Correction Factor: 20 mg/dL/unit * Nutritional / Prandial insulin per carb ratio of 1 unit per 7 grams CHO consumed * Will order additional checks for 0000, and 0400. * Please note that the plan above was derived based on current level of insulin resistance and hospital stress. These recommendations are appropriate for inpatient admission only. Plan of care upon discharge will need to be reassessed to avoid potential outpatient hypo/hyperglycemia. Pharmacy will follow patient and adjust orders on a daily basis. Thank you for allowing us to participate in this patients care.
[2018-06-07] MEDS: INSULIN ASPART 100 UNITS/ML 3 ML PEN SC SCH ×3 (13:58→21:02)
--- NOTE | 2018-06-07 14:04 | Ultrasound Report ---
ULTRASOUND RIGHT LOWER EXTREMITY VENOUS CLINICAL HISTORY: Lower extremity edema. Cellulitis. COMPARISON STUDY: No priors. TECHNIQUE: Real-time, grayscale, and color Doppler sonography of the deep veins of the right lower ex tremity was performed from the inguinal crease to the calf. Compression and augmentation were utilize d. FINDINGS: There is no sonographic evidence of deep venous thrombosis identified in the right lower ex tremity. The common femoral, superficial femoral, and popliteal veins are patent and normally simran sible. The greater saphenous vein and the profunda femoris vein at the junction with the common femor al vein are clear. Occlusive superficial venous thrombus is seen within the greater saphenous vein fr om the thigh to the calf. The visualized calf veins are patent. IMPRESSION: 1. There is no sonographic evidence of deep venous thrombosis identified in the right lower extremity . 2. Extensive occlusive superficial venous thrombus is seen within the greater saphenous vein extendin g from the thigh to the calf. Electronically signed by: Omar Sumner M.D. 06/07/2018 2:02 PM
[2018-06-07] MEDS: GABAPENTIN 400 MG CAP PO SCH ×2 (14:14→21:01)
[2018-06-07] MEDS: ZOLPIDEM TARTRATE 5 MG TAB PO PRN (20:57)
[2018-06-07] MEDS: predniSONE 20 MG TAB PO SCH (20:57)
[2018-06-07] MEDS: LEFLUNOMIDE 10 MG TAB PO SCH (20:58)
[2018-06-07] MEDS ORDERED: predniSONE 10 MG TABLET PO SCH (21:00)
[2018-06-07] MEDS: CITALOPRAM 40 MG TAB PO SCH (21:01)
[2018-06-07] MEDS: INSULIN GLARGINE SOLOSTAR 100 UNITS/ML 3 ML PEN SC SCH (22:03)
[2018-06-08] MEDS: INSULIN ASPART 100 UNITS/ML 3 ML PEN SC SCH ×6 (01:03→20:46)
[2018-06-08] MEDS: GABAPENTIN 400 MG CAP PO SCH ×3 (08:00→20:44)
[2018-06-08] MEDS: INSULIN GLARGINE SOLOSTAR 100 UNITS/ML 3 ML PEN SC SCH ×2 (08:56→20:45)
--- NOTE | 2018-06-08 10:06 | Infectious Disease Consult ---
Date of Consultation June 08, 2018 Assessment & Plan (1) Cellulitis, [age]-year-old male with possible recurrent right lower extremity cellulitis, but I am worried about the possibility of recurrent superficial thrombophlebitis, possibly related to his previous pancreatic cancer. For now, we will continue on current antibiotics pending final culture results. Will discuss with hospitalist service the need for possible anticoagulation such as with Eliquis. Will follow. (2) Superficial thrombophlebitis of right leg: History of Present Illness Reason for Consultation: Cellulitis Attending Physician: Jf Maloney MD History of Present Illness 62-year-old male well-known to me with history of pancreatic cancer status post resection with splenectomy 3-1/2 years ago, who has had several bouts of lower extremity cellulitis, suppressive therapy with cefadroxil. 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 He had been doing well until last week when he developed increasing redness and swelling of his right leg extending into his right thigh. Doxycycline was added for 2 days but patient worsened, was seen in the office yesterday and referred for admission. He was started empirically on daptomycin and ceftriaxone. Has noted little improvement since yesterday. Has had lower extremity Doppler ultrasound, and shows evidence of superficial thrombophlebitis. However white count is elevated. Cultures are pending. Has had low-grade fever. Pain cu rrently 2 out of 10 in intensity right leg. Allergies Allergy/AdvReac Type Severity Reaction Status Date / Time No Known Allergies Allergy Unverified 09/16/16 07:56 Home Medications Home Medications Medication Instructions Recorded Confirmed Type Ruth Moffett U-100 Insulin 20 units SUBCUT QAM 06/07/18 06/07/18 History Celexa 40 mg PO HS 06/07/18 06/07/18 History cefadroxil PO BID 06/07/18 History doxycycline calcium 100 mg PO BID 06/07/18 06/07/18 History gabapentin 400 mg PO TID 06/07/18 06/07/18 History leflunomide 20 mg PO HS 06/07/18 06/07/18 History metformin 1,000 mg PO BID 06/07/18 06/07/18 History prednisolone 40 mg PO QAM 06/07/18 History zolpidem [Ambien] 10 mg PO HS PRN 06/07/18 06/07/18 History Patient History Medical History Arthritis Black lung disease Diabetes mellitus Pancreatic cancer Porphyria Sleep apnea Surgical History H/O resection of pancreas H/O splenectomy Social History Preferred Language: [place] Communication Ability: Effective Lumber Tripper Required: No Beliefs That Will Affect Care: None Current Living Situation: Spouse Other Information That Helps Us Care for You: No Feels Safe at Home: Yes Safety Concerns: Feels Safe At This Time Smoking Status: Former smoker Hx Alcohol Use: Yes Hx Substance Use: No Review of Systems All systems were reviewed and are negative except as per HPI Physical Exam Vital Signs (Past 24 Hours): Last Vital Signs Temp 36.7 C 06/08/18 07:20 Pulse 82 06/08/18 07:20 Resp 16 06/08/18 07:20 BP 146/96 H 06/08/18 07:20 Pulse Ox 94 06/08/18 07:20 Constitutional: WD/WN, vitals as above comfortable; no acute distress Eyes: PERRL, conjunctivae normal, anicteric sclerae ENMT: external ear and nose normal, oropharynx normal Neck: trachea midline, no thyromegaly neck nontender Respiratory: normal respiratory effort, lungs clear to auscultation normal percussion; does not use accessory muscles Cardiovascular: Rate/Rhythm: regular rate and regular rhythm Heart Sounds: normal S1 and normal S2; no gallop, no murmur and no cardiac rub Vessels: normal peripheral pulses; no JVD Gastrointestinal (Abdomen): normal bowel sounds, soft, nontender, no hepatosplenomegaly Musculoskeletal: no cyanosis or clubbing, extremities motor strength 5/5 Spine: thoracic spine normal to inspection and lumbar spine normal to inspection; no cervical spinal tenderness Skin: no rashes, warm and dry normal turgor and + erythema (Patchy erythema right medial leg involving thigh and below the knee, area tender, palpable cords) Neurologic: patellar DTR's 2+ bilat, sensation intact no focal motor deficits Psychiatric: A+Ox3, euthymic affect Orientation: cooperative Lymphatic: no cervical or axillary lymphadenopathy no inguinal lymphadenopathy Results & Data Laboratory Results Short CBC 06/07/18 Range/Units 11:20 WBC 17.06 H (4.8-10.8) K/uL Hgb 14.7 (14.0-18.0) g/dL Hct 43.4 (42-52) % Plt Count 444 H (130-400) K/uL BMP 06/07/18 06/07/18 06/07/18 11:20 11:20 11:30 Sodium 135 L Cancelled Potassium 4.3 Cancelled Chloride 102 Cancelled Carbon Dioxide 27 Cancelled BUN 23 H Cancelled Creatinine 1.01 Cancelled Cancelled Glucose 286 H Cancelled Calcium 9.1 Cancelled Liver Function 06/07/18 Range/Units 11:20 Total Bilirubin 0.5 (0.2-1) mg/dl Direct Bilirubin 0.1 (0-0.2) mg/dl AST 20 (15-37) U/L ALT 36 (12-78) U/L Alkaline Phosphatase 102 (45-117) U/L Albumin 3.4 (3.4-5.0) gm/dl Diagnostic Findings ULTRASOUND RIGHT LOWER EXTREMITY VENOUS CLINICAL HISTORY: Lower extremity edema. Cellulitis. COMPARISON STUDY: No priors. TECHNIQUE: Real-time, grayscale, and color Doppler sonography of the deep veins of the right lower extremity was performed from the inguinal crease to the calf. Compression and augmentation were utilized. FINDINGS: There is no sonographic evidence of deep venous thrombosis identified in the right lower extremity. The common femoral, superficial femoral, and popliteal veins are patent and normally compressible. The greater saphenous vein and the profunda femoris vein at the junction with the common femoral vein are clear. Occlusive superficial venous thrombus is seen within the greater saphenous vein from the thigh to the calf. The visualized calf veins are patent. IMPRESSION: 1. There is no sonographic evidence of deep venous thrombosis identified in the right lower extremity. 2. Extensive occlusive superficial venous thrombus is seen within the greater saphenous vein extending from the thigh to the calf. Electronically signed by: Omar Sumner M.D. 06/07/2018 2:02 PM
[2018-06-08] MEDS: ENOXAPARIN INJ 40 MG/0.4 ML SYR SQ SCH (10:14)
[2018-06-08] MEDS: cefTRIAXone SODIUM 1,000 MG in DEXTROSE 5% 50 ML IV SCH (11:52)
[2018-06-08] MEDS: RIVAROXABAN 15 MG TAB PO SCH ×2 (12:02→20:45)
[2018-06-08] MEDS: ACETAMINOPHEN 325 MG TAB PO PRN (15:25)
--- NOTE | 2018-06-08 15:39 | Hospitalist Progress Note ---
Date of Service June 08, 2018 Assessment & Plan (1) Cellulitis: continue Daptomycin and Rocephin, some clinical response already today treat concurrent superficial thrombophlebitis (2) Superficial thrombophlebitis of right leg: occlusive and extensive from thigh to below the knee will treat with Xarelto BID x 3 weeks then 20mg daily x 6 months some swelling in right leg (3) Pancreatic cancer: s/p resection several years ago (4) Hypertension: continue to monitor BP, using Hydralazine PRN Subjective patient says that the pain in right thigh is the same, redness reduced slightly reviewed ID recommendations reviewed venous doppler results, showing extensive clot in greater saphenous vein discussed treating with patient, he agrees reviewed labs Review of Systems All systems reviewed & are unremarkable except as noted in HPI & below Physical Exam Vital Signs (Past 24 Hours): Last Vital Signs Temp 37.0 C 06/08/18 15:27 Pulse 94 H 06/08/18 15:27 Resp 19 06/08/18 15:27 BP 152/94 H 06/08/18 15:27 Pulse Ox 95 06/08/18 15:27 Constitutional: WD/WN, vitals as above + obese Eyes: PERRL, conjunctivae normal, anicteric sclerae ENMT: external ear and nose normal, oropharynx normal Neck: trachea midline, no thyromegaly Respiratory: normal respiratory effort, lungs clear to auscultation Cardiovascular: RRR, no murmur, no edema Gastrointestinal (Abdomen): normal bowel sounds, soft, nontender, no hepatosplenomegaly Musculoskeletal: no cyanosis or clubbing, extremities motor strength 5/5 Skin: + rash (right medial thigh, warm, tender, skin tense in right calf as well, red) Neurologic: patellar DTR's 2+ bilat, sensation intact and PERRL, EOMI, accommodation nl, no face palsy, no dysarthria Psychiatric: A+Ox3, euthymic affect Lymphatic: no cervical or axillary lymphadenopathy Results & Data Laboratory Results Laboratory Results - last 24 hr 06/07/18 06/07/18 06/07/18 17:04 20:29 23:48 POC Glucose 273 H 213 H 76 06/08/18 06/08/18 06/08/18 04:06 08:00 12:10 POC Glucose 193 H 181 H 165 H Diagnostic Findings ULTRASOUND RIGHT LOWER EXTREMITY VENOUS CLINICAL HISTORY: Lower extremity edema. Cellulitis. COMPARISON STUDY: No priors. TECHNIQUE: Real-time, grayscale, and color Doppler sonography of the deep veins of the right lower extremity was performed from the inguinal crease to the calf. Compression and augmentation were utilized. FINDINGS: There is no sonographic evidence of deep venous thrombosis identified in the right lower extremity. The common femoral, superficial femoral, and popliteal veins are patent and normally compressible. The greater saphenous vein and the profunda femoris vein at the junction with the common femoral vein are clear. Occlusive superficial venous thrombus is seen within the greater saphenous vein from the thigh to the calf. The visualized calf veins are patent. IMPRESSION: 1. There is no sonographic evidence of deep venous thrombosis identified in the right lower extremity. 2. Extensive occlusive superficial venous thrombus is seen within the greater saphenous vein extending from the thigh to the calf. Medications Administered Current Inpatient Medications Acetaminophen (Tylenol) 650 mg PO Q4H PRN PRN Reason: pain/fever Stop: 07/07/18 10:53 Last Admin: 06/08/18 15:25 Dose: 650 mg Documented by: Al Hydrox/Mg Hydrox/Simethicone (Maalox) 30 ml PO Q6H PRN PRN Reason: Dyspepsia Stop: 07/07/18 10:53 Citalopram Hydrobromide (Celexa) 40 mg PO QPM [facility] Stop: 07/07/18 20:59 Last Admin: 06/07/18 21:01 Dose: 40 mg Documented by: Gabapentin (Neurontin) 400 mg PO TID [facility] Stop: 07/07/18 13:59 Last Admin: 06/08/18 13:02 Dose: 400 mg Documented by: Hydralazine HCl (Hydralazine Hcl) 20 mg IV Q6 PRN PRN Reason: Hypertension Stop: 07/07/18 11:27 Ceftriaxone Sodium 1,000 mg/ (Dextrose) 50 mls @ 100 mls/hr IV Q24H [facility]; Protocol Stop: 06/17/18 11:59 Last Infusion: 06/08/18 12:29 Dose: Infused Documented by: Insulin Aspart (Novolog Flexpen) 0 units SC ACHS [facility] Stop: 07/07/18 12:59 Last Admin: 06/08/18 13:02 Dose: 9 units Documented by: Insulin Glargine (Lantus Solostar Pen) 0 units SC BID [facility]; Protocol Stop: 07/07/18 20:59 Last Admin: 06/08/18 08:56 Dose: 20 units Documented by: Leflunomide (Arava) 20 mg PO HS [facility] Stop: 07/07/18 20:59 Last Admin: 06/07/18 20:58 Dose: 20 mg Documented by: Magnesium Hydroxide (Milk Of Magnesia) 30 ml PO Q6H PRN PRN Reason: Constipation Stop: 07/07/18 10:53 Miscellaneous Information (Consult Glycemic Management Pharmacy) 1 ea N/A UD PRN PRN Reason: Consult Stop: 07/07/18 11:58 Ondansetron HCl (Zofran) 4 mg IV Q6H PRN PRN Reason: Nausea Stop: 07/07/18 10:53 Polyethylene Glycol (Miralax Powder Packet) 17 gm PO DAILY PRN PRN Reason: Constipation Stop: 07/07/18 10:53 Prednisone (Prednisone) 10 mg PO HS [facility] Stop: 06/13/18 21:01 Prednisone (Prednisone) 40 mg PO HS [facility] Stop: 06/08/18 21:01 Last Admin: 06/07/18 20:57 Dose: 40 mg Documented by: Rivaroxaban (Xarelto) 15 mg PO BID [facility] Stop: 06/28/18 21:01 Last Admin: 06/08/18 12:02 Dose: 15 mg Documented by: Zolpidem Tartrate (Ambien) 5 mg PO HS PRN PRN Reason: Sleep Stop: 07/07/18 10:53 Last Admin: 06/07/18 20:57 Dose: 5 mg Documented by:
[2018-06-08] MEDS: predniSONE 20 MG TAB PO SCH (20:44)
[2018-06-08] MEDS: CITALOPRAM 40 MG TAB PO SCH (20:45)
[2018-06-08] MEDS: LEFLUNOMIDE 10 MG TAB PO SCH (20:45)
[2018-06-08] MEDS: ZOLPIDEM TARTRATE 5 MG TAB PO PRN (20:49)
[2018-06-09 07:53] VITALS: TEMP 98.2; O2SAT 94
[2018-06-09] MEDS: RIVAROXABAN 15 MG TAB PO SCH (08:35)
[2018-06-09] MEDS: GABAPENTIN 400 MG CAP PO SCH (08:35)
[2018-06-09] MEDS: INSULIN ASPART 100 UNITS/ML 3 ML PEN SC SCH ×2 (08:43→13:08)
[2018-06-09] MEDS: INSULIN GLARGINE SOLOSTAR 100 UNITS/ML 3 ML PEN SC SCH (09:20)
--- NOTE | 2018-06-09 10:04 | Pharmacy Report ---
Pharmacy Glycemic Short Note 2 - Date of Service June 09, 2018 - Glycemic Short BSG Results (Last 24 hours): 06/08/18 06/08/18 06/08/18 12:10 17:05 20:35 POC Glucose 165 H 123 H 112 H 06/09/18 08:23 POC Glucose 237 H OUTPATIENT ANTIDIABETIC REGIMEN: * Basaglar 20 units daily * Metformin 1000mg BIDM * A1c = 9.0 % 06/07/18 ASSESSMENT: 06/09 * Mr. Tony received 74 units of insulin yesterday (40 of this was basal) * He received 40 mg of prednisone last night but this will be tapered to 10 mg this evening, so I am anticipating a reduction in insulin requirements * Fasting BSG elevated this AM -> this is most likely due to PM administration of prednisone. He will receive higher dose of Lantus this AM. * Will plan to reduce Lantus dose this evening to max of 40 units that he could receive today if BSGs remain elevated. Note: insulin calculator estimates based on wt/stress level of 2 = basal of 20 units BID * Pre-meal BSGs well controlled yesterday -> will continue same CF/CR for today PLAN FOR INPATIENT GLYCEMIC CONTROL: * Continue to hold outpatient oral diabetes medications - resume 1-2 days prior to discharge to aid in transition of care * Basal insulin - decrease scale starting this evening, will need to reassess tomorrow w/ reduction in steroid dose * Lantus SQ BID per the following scale: * 10 units for BSG < 200 * 15 units for BSG 200 or above * Bolus insulin - no change * NovoLog per scale ACHS or Q6hrs while NPO * Goal Range: Low 110 mg/dL - High 140 mg/dL * Correction Factor: 20 mg/dL/unit * Nutritional / Prandial insulin per carb ratio of 1 unit per 7 grams CHO consumed PLAN FOR DISCHARGE: * A1c has improved but remains above goal. CDE notes that patient reports increased BSGs at home. Recommend to increase Basaglar on discharge and f/u closely w/ outpatient provider. Patient may eventually need mealtime insulin to aid with BSG control. * Recommendations: Increase Basaglar to 25 units once daily Continue metformin 1 gm BID
[2018-06-09] MEDS: cefTRIAXone SODIUM 1,000 MG in DEXTROSE 5% 50 ML IV SCH (12:36)
[2018-06-09 12:59] VITALS: BP 131/81; PULSE 70
--- NOTE | 2018-06-09 16:10 | Discharge Summary ---
Date of Service June 09, 2018 Admission HPI Per Admitting Provider 62-year-old white male with history of hypertension , rectal bleeding , kidney disease renal failure, pancreatic cancer , pleural effusion admitted from 's office because of right lower extremity cellulitis Per report patient is having right lower extremity Medial side skin red and erythema associated tender, he has been follow-up with Dr. Rankin's office, was given Cefadroxil for several days, it has not getting better, antibiotic was changed to Doxycycline last Thursday which was 3 days ago, however, the local red erythema and pain is getting worse, and spreading up to medial thigh, therefore Dr. Rankin send him to the hospital. Patient reports occasional cough otherwise no fever and chill, denies diarrhea constipation Admission Exam Per Admitting Provider General Appearance: WD/WN, mild obesity, pleasant, no apparent distress, Eyes: normal inspection, PERRL, EOMI, sclerae normal ENT: normal ENT inspection, hearing grossly normal, pharynx normal Neck: supple, no adenopathy, thyroid normal, no JVD, no carotid bruits, trachea midline Respiratory/Chest: chest non-tender, normal breath sounds, no respiratory di stress, no accessory muscle use, breath sounds, rales, wheezing Cardiovascular: regular rate, rhythm, no JVD, no murmur Abdomen: normal bowel sounds, non tender, soft, no organomegaly, Extremities: Left lower extremity ankle minimal edema, medial part has erythema spreading up to medal thigh, local mild tender in palpation, no open wound or drainages normal range of motion, non-tender, normal inspection, no calf tenderness, normal capillary refill, pelvis stable, joint has no limited range of motion, capillary refill is normal, no cyanosis clubbing Neurologic/Psychiatric: 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 II-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 nml as tested, no motor/sensory deficits, alert, normal mood/affect, oriented x 3 Skin: normal color, warm/dry, no rash Lymphatic: no adenopathy Principal Diagnosis Superficial thrombophlebitis Discharge Exam Constitutional WD/WN, vitals as above + obese Eyes PERRL, conjunctivae normal, anicteric sclerae ENMT external ear and nose normal, oropharynx normal Neck trachea midline, no thyromegaly Respiratory normal respiratory effort, lungs clear to auscultation Cardiovascular RRR, no murmur, no edema Gastrointestinal (Abdomen) normal bowel sounds, soft, nontender, no hepatosplenomegaly Musculoskeletal no cyanosis or clubbing, extremities motor strength 5/5 Skin + rash (right medial thigh, warm, tender, skin tense in right calf as well, red) Neurologic patellar DTR's 2+ bilat, sensation intact and PERRL, EOMI, accommodation nl, no face palsy, no dysarthria Psychiatric A+Ox3, euthymic affect Lymphatic no cervical or axillary lymphadenopathy Discharge Data Allergies Allergy/AdvReac Type Severity Reaction Status Date / Time No Known Allergies Allergy Unverified 09/16/16 07:56 Consultations 06/07/18 10:59 Consult Infectious Diseases Routine Ordered Studies 06/07/18 11:13 US venous doppler LE RT Stat Hospital Course (1) Cellulitis: treated with Daptomycin and Rocephin, some clinical response however, with the diagnosis of superficial thrombophlebitis, will just use anticoagulation observe off antibiotics (2) Superficial thrombophlebitis of right leg: occlusive and extensive from thigh to below the knee will treat with Xarelto 10mg daily according to up to date it is worth treating given recurrence and extensive clot recommend 45 days of treatment with Xarelto 10mg daily could consider referral to hematology for further recommendations (3) Pancreatic cancer: s/p resection several years ago (4) Hypertension: continue to monitor BP, using Hydralazine PRN Total Time Total Time Spent Total Time Spent (In Minutes): 35 minutes Total Time Includes: Examination of the Patient, Discharge Planning, Medication Reconciliation and Communication With Other Providers Discharge Plan Discharge Items Patient Disposition: Home - Self-Care Reason For Visit: RT LOWER LEG CELLULITIS Discharge Diagnosis: Superficial thrombophlebitis right leg Condition: Good Discharge Goals: Decrease discomfort, Improve disease control and Improve function Activity: Resume your previous activity Non-emergency contact: Primary Care Provider Call non-emergency contact if: you have any medication questions, your symptoms worsen and you have a fever Follow-up/Referrals: Harriet Carranza MD [Primary Care Provider] - Diet: Carb Consistent or DM2 Addtl Provider Instructions: Medications: - XARELTO: 10mg daily, start tomorrow Superficial thrombophlebitis in right leg, occlussive and extensive needs to be treated, recommend Xarelto 10mg daily for 45 days follow up closely with Dr. Carranza may need a longer duration since this is not your first episode could consider referral to fund manager as outpatient Cellulitis: Dr. Rankin recommends observing off antibiotics, just treat the phlebitis and see if skin improves FOLLOW UP - Dr. Carranza in one week, call for appointment Prescriptions: New Xarelto 10 mg tablet 10 mg PO DAILY 30 Days Qty: 30 RF: 1 Continued leflunomide 20 mg Tablet 20 mg PO HS RF: 0 Celexa 40 mg PO HS RF: 0 gabapentin 400 mg PO TID RF: 0 metformin 1,000 mg Tablet 1,000 mg PO BID RF: 0 zolpidem [Ambien] 10 mg Tablet 10 mg PO HS PRN (Reason: Sleep) RF: 0 Basaglar KwikPen U-100 Insulin 20 units subcut QAM RF: 0 prednisolone 40 mg PO QAM RF: 0 Discontinued cefadroxil PO BID RF: 0 doxycycline calcium 100 MG tablet 100 mg PO BID RF: 0 Stand-Alone Forms: [facility] Discharge Orders: Discharge Order (Routine); Ordered 06/09/18 Ordered By: Kaleb Rhoades Admission Data Admit Date/Time: 06/07/18 10:09 Attending Provider: Jf Maloney Admit Provider: Pipo Rankin Primary Care Provider: Harriet Carranza Other Providers: Pipo Rankin Service: Medical Other Interventions: Discharge Summary Assessment (RN) Last Done: 06/09/18 12:58 DC Date/Time DO NOT enter until pt leaves facility: 06/09/18 13:34
== END 2018-06-09 13:34 | disposition home or self-care (01) | DRG 300 ==
LOC: 3W 10:09

== ENCOUNTER 2023-05-24 11:00 | Inpatient (IN) ==
[2023-05-24] MEDS: ALBUTEROL 0.083% NEBU SOLN 3 ML VIAL NEB STA ×2 (11:36→15:16)
[2023-05-24] MEDS: SODIUM CHLORIDE 0.9% 1,000 ML IV ONE (11:40)
[2023-05-24 11:45] LABS: Basophils # (auto) 0.08 K/uL (0.00-0.20); Basophils % (auto) 0.5 %; Eosinophils # (auto) 0.37 K/uL (0.00-0.50); Eosinophils % (auto) 2.5 %; Hematocrit (blood only) 42.9 % (42.0-52.0); Hemoglobin 14.9 g/dl (14.0-18.0); Immature Granulocytes # (auto) 0.09 K/uL (0.01-0.20); Immature Granulocytes % (auto) 0.6 %; Lymphocytes # (auto) 1.84 K/uL (1.20-3.40); Lymphocytes % (auto) 12.4 %; Mean Corpuscular Hgb Conc 34.7 g/dL (32.0-36.0); Mean Corpuscular Volume 92.3 fL (80.0-100.0); Mean Platelet Volume 10.5 fL (9.4-12.4); Monocytes # (auto) 1.46 K/uL (0.11-0.59); Monocytes % (auto) 9.8 %; Neutrophils # (auto) 10.99 K/uL (1.40-6.50); Neutrophils % (auto) 74.2 %; Platelet Count 468 K/uL (130-400); RDW Coefficient of Variation 18.6 % (11.5-14.5); RDW Standard Deviation 61.4 fL (36.4-46.3); Red Blood Count 4.65 M/uL (4.70-6.10); White Blood Count 14.83 K/ul (4.8-10.8)
--- NOTE | 2023-05-24 11:49 | Emergency Department Note ---
Impression & Plan Hypoxia, COPD (chronic obstructive pulmonary disease), Shortness of breath ED Provider Note NAME: MIKE TRUJILLO AGE: 67 SEX: M : 1955 ARRIVES VIA: Walk-In INFORMANT: Patient ED PROVIDER(S): Bill Aparicio DO CHIEF COMPLAINT: Shortness of breath HPI: Patient is a 67-year-old male who presents to the ER with a past medical history of COPD, diabetes, generalized anxiety disorder, pulmonary nodule, superficial thrombophlebitis on rivaroxaban who presents to the ER for shortness of breath associated with cough which is intermittently productive and runny nose. He notes all of his symptoms started at the end of February. Denies any chest pain or belly pain. No nausea, vomiting, or diarrhea. He has been on 2 rounds of steroids with no improvement. He admits he has a history of black lung disease. Additional history is obtained from present at bedside who notes that he has been on antibiotics and steroids and no improvement whatsoever. He has followed up with PCP regarding improvement. Additional history obtained from who is present at bedside who notes that symptoms have been getting worse over the past several months. ADDITIONAL HISTORY OBTAINED: Per HPI Chronic Medical/Social Conditions Affecting Care: Per HPI PAST MEDICAL HISTORY:See Below PAST SURGICAL HISTORY:See Below FAMILY HISTORY:See Below SOCIAL HISTORY:See Below HOME MEDICATIONS:See Below ALLERGIES:See Below VITALS:See Below PHYSICAL EXAMINATION: GENERAL: Sitting up in bed, alert, well appearing, well nourished, no distress, non-toxic EYE EXAM: normal conjunctiva. PERRL and EOM's grossly intact. OROPHARYNX: no exudate, no erythema, lips, buccal mucosa, and tongue normal and mucous membranes are moist NECK: supple, no nuchal rigidity, no adenopathy, non-tender LUNGS: Clear to auscultation. Normal chest wall mechanics HEART: no murmurs, S1 normal and S2 normal ABDOMEN: abdomen soft, non-tender, normo-active bowel sounds, no masses, no rebound or guarding. UPPER EXTREMITIES: upper extremities are grossly normal. LOWER EXTREMITIES: No pitting edema. Calves are equal bilaterally NEURO EXAM: Normal sensorium, cranial nerves II-XII grossly intact, normal speech, no gross weakness of arms, no gross weakness of legs. No drift. Finger to nose intact. Gross sensation intact. MEDICAL DECISION MAKING: Patient is a 67-year-old male who presents ER with extensive past medical history of COPD, generalized anxiety disorder, diabetes, superficial thrombophlebitis on NOAC for shortness of breath associate with a cough which has been present since the end of February. Symptoms have been gradually getting worse. He is significantly worse with exertion. Patient has not missed any doses of his rivaroxaban. IV was established blood work is obtained. Labs show mild leukocytosis of 14,000. No significant anemia. BMP along with LFTs bilirubin was unremarkable. Troponin was negative with symptoms of been present for greater than 8 hours not indicative of ACS. Lipase was normal. Chest x-ray was clean. Viral panel was negative. Patient was given steroids and multiple neb treatments. When he walks he drops down to 86%. Placed on 2 L nasal cannula. was updated at bedside. Discussed case with the hospitalist for further evaluation management treatment. CT angio of the chest was negative and was performed as he is on rivaroxaban does have a history of previous pancreatic cancer which has been in remission for 8 years. Consults/Care Managements Discussions: Per [facility] Triage Nursing notes reviewed. Limited review of prior medical records performed Vital Signs: reviewed and remarkable for no significant abnormalities Differential diagnosis: Differential diagnoses includes but is not limited to pneumonia, bronchitis, COPD/Asthma exacerbation, pneumothorax, pulmonary embolism, congestive heart failure, acute coronary syndrome ER treatment provided: See below Diagnostics interpreted by me include EKG and cardiac monitoring as listed below: -Cardiac Monitoring: An order was placed for continuous cardiac monitoring. The monitor shows a rate of 101 with sinus rhythm. -ECG: Sinus rhythm rate of 101 Normal axis No PVCs QTc 427 -Laboratory studies:Interpreted by me as stated above in MDM and shown below. Imaging studies: Xrays: As interpreted by me: Portable AP upright 1 view of the chest shows subtle infiltrates at the bases which appear to be unchanged CTs show: CT angio of the chest as described above Procedures:none Critical Care: None Past Med/Surg History Medical History History of neuroendocrine cancer Acid reflux High cholesterol Neuropathy Fatty liver Anxiety History of DVT (deep vein thrombosis) Rheumatoid arthritis COPD (chronic obstructive pulmonary disease) COVID-[address] scan of lung Pulmonary emphysema Colon polyps Black lung disease Diabetes mellitus Pancreatic cancer Surgical History History of liver biopsy History of bronchoscopy History of endoscopy History of surgery History of colonoscopy S/P cataract extraction History of dental surgery H/O resection of pancreas Family History Unknown Diabetes Cardiac disorder Lung disease Cancer Hypertension Father Pancreatic cancer Diabetes Cancer Hypertension Brother Hypertension Mother Stroke Brain cancer Other Family history of colon cancer in father No family history of bleeding disorder No significant family history Denies family history of Ovarian cancer Prostate cancer Hearing loss Heart disease Myocardial infarction Breast cancer Colorectal cancer Asthma Social History Smoking Status: Never smoker Tobacco Type: Cigarettes Age Started Using Tobacco: 18; Age Quit Using Tobacco: 45; Second Hand Exposure: No; Do You Dip or Chew Tobacco: No; Hx Alcohol Use: Yes Alcohol type: beer Alcohol Intake Frequency: 4 or More x per/Week Hx Substance Use: Yes (HX METHAMPHETAMINE/COCAINE AGE 20 - 30) Prescribed Medications: Marijuana Last Used Substance: Hours (ago) Substance Use Type Other:: MEDICAL MARIJUANA CARD - INSTRUCTED TO BRING Preferred Language: Armenian Communication Ability: Effective Visual Impairment: No Limitations Hearing Ability: Normal 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 Required: No Beliefs That Will Affect Care: None marital status: Current Living Situation: Spouse and Family Current Living Situation Comment: [facility] current occupational status: retired How many Children do You have: 2 Feels Safe at Home: Yes Childhood Exposure to Second-Hand Smoke: No Diet: regular Diet Comment: regular Dental Care, Regularly: No Physical Activity Frequency: 5-6 Times per Week Seatbelt Use: always Sunscreen Use: Yes Assistive Devices: Denture - Upper, Denture - Lower, Glasses and Oxygen - at Night Allergies Allergies Allergy/AdvReac Type Severity Reaction Status Date / Time rosuvastatin AdvReac muscle Verified 05/19/23 09:16 aches Home Meds Home Medications Medication Instructions Recorded Confirmed multivitamin (Daily Multi-Vitamin 1 tab PO QAM 10/05/18 05/24/23 tablet) aspirin 81 mg tablet,delayed 81 mg PO QAM 11/13/18 05/24/23 release (Adult Aspirin Regimen) folic acid 1 mg tablet 1 mg PO QAM 11/13/18 05/24/23 Medical Marijuana Card 1 dose UD 01/08/22 05/24/23 fluticasone furoate 100 1 inh inhalation UD PRN copd 01/08/22 05/24/23 mcg/actuation blister powder for inhalation Previous Rx's Medication Instructions Recorded Oxygen Home E0424 #1 ea 05/19/22 pen needle, diabetic 32 gauge x #100 ea 01/16/23 5/32" (BD Marely 2nd Gen Pen Needle) fenofibrate nanocrystallized 145 145 mg PO QAM #90 tabs 01/18/23 mg tablet metformin 1,000 mg tablet See Rx Instructions .Route 01/18/23 .COMPLEX #180 tabs omeprazole 20 mg capsule,delayed 20 mg PO QAM #90 caps 01/18/23 release rivaroxaban 20 mg tablet 20 mg PO QPM #30 tabs 01/19/23 glimepiride 2 mg tablet 2 mg PO DAILY #30 tabs 01/26/23 gabapentin 800 mg tablet 800 mg PO TID 90 days #270 tabs 02/03/23 insulin glargine 100 unit/mL (3 46 unit (0.46 mL) subcut HS #15 mL 02/04/23 mL) subcutaneous pen (Basaglar KwikPen U-100 Insulin) sertraline 100 mg tablet 100 mg PO QAM #90 tabs 03/24/23 budesonide-formoterol HFA 80 2 inh inhalation Q12H #10.2 grams 05/06/23 mcg-4.5 mcg/actuation aerosol inhaler (Symbicort) methotrexate sodium 2.5 mg tablet 20 mg (8 x 2.5 mg) PO Q7D #96 tabs 05/19/23 benzonatate 100 mg capsule See Rx Instructions PO TID PRN 05/22/23 cough #30 caps Results & Data (ED) Vital Signs Vital Signs - 24 hr 05/24/23 11:15 05/24/23 11:26 05/24/23 11:26 Temperature 36.3 C L Temperature Source Temporal Artery Scan Pulse Rate 102 H Pulse Rate [Apical] 102 H Respiratory Rate 18 18 Respiratory Effort / Characteristics Respiratory Depth Respiratory Pattern Blood Pressure 154/90 H Blood Pressure [Right Arm] 143/95 H Blood Pressure Mean 111 Blood Pressure Mean [Right Arm] 111 Pulse Oximetry 93 93 93 Oxygen Delivery Method Room Air Room Air Room Air Oxygen Flow Rate Sepsis Recent Fever Within 48 Hours Yes Sepsis New/Unexplained Change in Mental Status N/A Sepsis Action Taken by Nursing No Action Required 05/24/23 11:26 05/24/23 12:05 05/24/23 12:07 Temperature Temperature Source Pulse Rate 102 H 100 H 101 H Pulse Rate [Apical] Respiratory Rate 18 17 18 Respiratory Effort / Characteristics Respiratory Depth Respiratory Pattern Blood Pressure Blood Pressure [Right Arm] Blood Pressure Mean Blood Pressure Mean [Right Arm] Pulse Oximetry 93 86 L 91 Oxygen Delivery Method Room Air Room Air Nasal Cannula Oxygen Flow Rate 2 Sepsis Recent Fever Within 48 Hours Sepsis New/Unexplained Change in Mental Status Sepsis Action Taken by Nursing 05/24/23 12:12 05/24/23 13:00 Temperature Temperature Source Pulse Rate 99 H Pulse Rate [Apical] 97 H Respiratory Rate 20 Respiratory Effort / Characteristics Non-Labored Respiratory Depth Normal Respiratory Pattern Regular Blood Pressure Blood Pressure [Right Arm] 125/84 Blood Pressure Mean Blood Pressure Mean [Right Arm] 97 Pulse Oximetry 94 Oxygen Delivery Method Nasal Cannula Oxygen Flow Rate 2 Sepsis Recent Fever Within 48 Hours Sepsis New/Unexplained Change in Mental Status Sepsis Action Taken by Nursing Laboratory Data 05/24/23 11:29 05/24/23 11:29 Lab Results 05/24/23 Range/Units 11:29 WBC 14.83 H (4.8-10.8) K/ul RBC 4.65 L (4.70-6.10) M/uL Hgb 14.9 (14.0-18.0) g/dl Hct 42.9 (42.0-52.0) % MCV 92.3 (80.0-100.0) fL MCH 32.0 (25.0-34.0) pg MCHC 34.7 (32.0-36.0) g/dL RDW Std Deviation 61.4 H (36.4-46.3) fL RDW Coeff of Shira 18.6 H (11.5-14.5) % Plt Count 468 H (130-400) K/uL MPV 10.5 (9.4-12.4) fL Immature Gran % (Auto) 0.6 % Neut % (Auto) 74.2 % Lymph % (Auto) 12.4 % [place] % (Auto) 9.8 % Eos % (Auto) 2.5 % Baso % (Auto) 0.5 % Neut # (Auto) 10.99 H (1.40-6.50) K/uL Lymph # (Auto) 1.84 (1.20-3.40) K/uL [place] # (Auto) 1.46 H (0.11-0.59) K/uL Eos # (Auto) 0.37 (0.00-0.50) K/uL Baso # (Auto) 0.08 (0.00-0.20) K/uL Immature Gran # (Auto) 0.09 (0.01-0.20) K/uL Sodium 136 (136-145) mmol/L Potassium 4.3 (3.5-5.1) mmol/L Chloride 102 (98-107) mmol/L Carbon Dioxide 27 (21-32) mmol/L Anion Gap 7 (3-11) BUN 18 (6-23) mg/dl Creatinine 1.12 (0.6-1.4) mg/dl Est Cr Clr Drug Dosing 78.0 ml/min Est GFR ( Amer) 79.5 ml/min Est GFR (Non-Af Amer) 68.6 ml/min BUN/Creatinine Ratio 16.1 (10-20) Glucose 227 H (70-99(Fasting)) mg/dl Calcium 9.8 (8.6-10.3) mg/dl Total Bilirubin 0.4 (0.2-1.0) mg/dl AST 22 (13-39) U/L ALT 23 (7-52) U/L Alkaline Phosphatase 63 (34-104) U/L Troponin I High Sens 9.5 (0-20) pg/ml Total Protein 7.2 (6.0-8.3) gm/dl Albumin 3.9 (3.4-5.0) gm/dl Globulin 3.3 (2.5-4.0) gm/dl Albumin/Globulin Ratio 1.2 (0.9-2) Lipase 6 L (11-82) U/L Adenovirus (PCR) Not Detected (NotDetected) B. pertussis DNA (PCR) Not Detected (NotDetected) B.parapertussis DNA PCR Not Detected (NotDetected) C. pneumoniae DNA (PCR) Not Detected (NotDetected) Coronavirus OC43 (PCR) Not Detected (NotDetected) Coronavirus HKU1 (PCR) Not Detected (NotDetected) Coronavirus 229E (PCR) Not Detected (NotDetected) SARS-CoV-2 (PCR) Not Detected (NotDetected) Coronavirus NL63 (PCR) Not Detected (NotDetected) Human Metapneumovir PCR Not Detected (NotDetected) Influenza Type A (PCR) Not Detected (NotDetected) Influenza Type B (PCR) Not Detected (NotDetected) M. pneumoniae (PCR) Not Detected (NotDetected) Parainfluenza 1 (PCR) Not Detected (NotDetected) Parainfluenza 2 (PCR) Not Detected (NotDetected) Parainfluenza 3 (PCR) Not Detected (NotDetected) Parainfluenza 4 (PCR) Not Detected (NotDetected) RSV (PCR) Not Detected (NotDetected) Entero/Rhino (PCR) Not Detected (NotDetected) Administered Medications Discontinued Medications Albuterol (Albuterol 0.083% Nebu Soln 3 Ml Vial) 2.5 mg NEB NOW STA; Protocol Stop: 05/24/23 11:31 Last Admin: 05/24/23 11:36 Dose: 2.5 mg Documented By: AMS Sodium Chloride (Nss) 1,000 mls @ 999 mls/hr IV .Q1H1M ONE Stop: 05/24/23 12:29 Last Infusion: 05/24/23 13:07 Dose: Infused Documented By: Admin: 05/24/23 11:40 Dose: 999 mls/hr Documented By: AMS Ioversol (Optiray 320 125ml) 117 ml IV ONCE ONE Stop: 05/24/23 12:40 Last Admin: 05/24/23 12:39 Dose: 117 ml Documented By: EDK Imaging Data Radiologist's Impression: Chest X-Ray 05/24/23 11:20 XR chest 1V portable HISTORY: 67 years-old Male Chest pain, nonspecific COMPARISON: 04/29/2023 TECHNIQUE: AP view of the chest FINDINGS: Cardiac silhouette is enlarged. Emphysema with chronic fibrotic changes. Ill- defined bibasilar densities are similar to prior. No pneumothorax or large pleural effusion. Bones appear grossly intact. IMPRESSION: Cardiomegaly with emphysema and unchanged reticular interstitial opacities suggestive of fibrosis. ACT 112: Negative or not required by law. The above report was generated using voice recognition software. It may contain grammatical, syntax or spelling errors. Electronically signed by: Yusef Chappell M.D. 05/24/2023 11:52 AM Chest CTA 05/24/23 11:30 CT angio chest PE protocol CT DOSE: 936.12 mGy.cm HISTORY: 67 years-old Male with PE. Acute chest pain with shortness of breath TECHNIQUE: Multiple CTA images of the chest were obtained after the intravenous administration of 117 ml Optiray. Coronal and sagittal MIPS were obtained from the axial data set and were submitted for review. All measurements were obtained according to NASCET criteria. A dose lowering technique was utilized adhering to the principles of ALARA. COMPARISON: Chest radiograph of same day, chest CT 03/24/2022 FINDINGS: CTA: Heart is upper limits of normal in size. Unchanged subcentimeter cardiophrenic lymph nodes. No pericardial effusion. Moderate to extensive coronary artery calcifications. There is atherosclerosis of the aorta without aneurysm or dissection. Patency of the imaged great vessels. No pulmonary emboli. CT CHEST: Unchanged mediastinal and hilar lymphadenopathy. Some of the lymph nodes are partially calcified. Subcarinal lymph nodes measure up to approximately 2 cm. No pneumothorax, pleural effusion or overt pulmonary edema. Emphysema with chronic fibrotic changes and intermixed atelectasis has mildly progressed. No lobar airspace consolidation typical for pneumonia. Central airways are patent. Unchanged mild upper abdominal lymphadenopathy. Hepatic steatosis. Mild gynecomastia. Healing subacute to chronic nondisplaced fractures of the right lateral sixth through ninth ribs and anterior left seventh rib. IMPRESSION: 1. Cardiomegaly without pulmonary emboli. 2. Progressively worsened chronic interstitial lung disease. 3. No pleural effusion or airspace consolidation typical for pneumonia. 4. Unchanged adenopathy of the chest and upper abdomen. 5. Healing subacute to chronic appearing nondisplaced bilateral rib fractures. ACT 112: Negative or not required by law. The above report was generated using voice recognition software. It may contain grammatical, syntax or spelling errors. Electronically signed by: Yusef Chappell M.D. 05/24/2023 1:19 PM Discharge Plan Visit Data Chief Complaint: Shortness of Breath/Dyspnea Stated Complaint: SOB, COUGH, FEVER ED Provider: Bill Aparicio Discharge Problem: Hypoxia, COPD (chronic obstructive pulmonary disease), Shortness of breath Forms Stand Alone Forms: My [facility] Prescriptions Prescriptions: No Action (DME) Oxygen Home E0424 Liters Per Minute See Rx Instructions .Route Qty: 1 0RF Rx Instructions: 2L/MIN VIA NASAL CANNULA AT HS. NO LONGER USING FOR AMBULATION. (DME) pen needle, diabetic [BD Marely 2nd Gen Pen Needle] 32 gauge x 5/32" needle See Rx Instructions .Route Qty: 100 1RF Rx Instructions: USE TO INJECT BASAGLAR ONCE DAILY OR DIRECTED. DX CODE: E11.9 metformin 1,000 mg tablet See Rx Instructions .ROUTE .COMPLEX Qty: 180 1RF Dose Instruction: TAKE 1 TABLET BY MOUTH TWICE A DAY Rx Instructions: TAKE 1 TABLET BY MOUTH TWICE A DAY fenofibrate nanocrystallized 145 mg tablet 145 mg PO QAM Qty: 90 3RF omeprazole 20 mg capsule,delayed release(DR/EC) 20 mg PO QAM Qty: 90 1RF Rx Instructions: every morning before breakfast Xarelto 20 mg tablet 20 mg PO QPM Qty: 30 5RF gabapentin 800 mg tablet 800 mg PO TID 90 Days Qty: 270 1RF insulin glargine [Basaglar KwikPen U-100 Insulin] 100 unit/mL (3 mL) insulin pen 46 unit subcut HS Qty: 15 5RF sertraline 100 mg tablet 100 mg PO QAM Qty: 90 1RF budesonide-formoterol [Symbicort] 80-4.5 mcg/actuation HFA aerosol inhaler 2 inh inhalation Q12H Qty: 10.2 0RF benzonatate 100 mg capsule See Rx Instructions PO TID PRN (Reason: cough) Qty: 30 1RF Rx Instructions: 1 to 2 capsules PO TID PRN; multivitamin [Daily Multi-Vitamin] tablet 1 tab PO QAM aspirin [Adult Aspirin Regimen] 81 mg tablet,delayed release (DR/EC) 81 mg PO QAM folic acid 1 mg tablet 1 mg PO QAM glimepiride 2 mg tablet 2 mg PO DAILY Qty: 30 2RF methotrexate sodium 2.5 mg tablet 20 mg PO Q7D Qty: 96 0RF fluticasone furoate 100 mcg/actuation blister with device 1 inh inhalation UD PRN (Reason: copd) Medical Marijuana Card 1 dose UD Referrals Referrals: Harriet Carranza MD [Primary Care Provider] - Discharge Problem: COPD (chronic obstructive pulmonary disease) Qualifiers: COPD type: unspecified COPD Qualified Code(s): J44.9 - Chronic obstructive pulmonary disease, unspecified
--- NOTE | 2023-05-24 11:53 | XRay Report ---
XR chest 1V portable HISTORY: 67 years-old Male Chest pain, nonspecific COMPARISON: 04/29/2023 TECHNIQUE: AP view of the chest FINDINGS: Cardiac silhouette is enlarged. Emphysema with chronic fibrotic changes. Ill-defined bibasilar densit ies are similar to prior. No pneumothorax or large pleural effusion. Bones appear grossly intact. IMPRESSION: Cardiomegaly with emphysema and unchanged reticular interstitial opacities suggestive of fibrosis. ACT 112: Negative or not required by law. The above report was generated using voice recognition software. It may contain grammatical, syntax o r spelling errors. Electronically signed by: Yusef Chappell M.D. 05/24/2023 11:52 AM
[2023-05-24 11:59] LABS: Albumin Globulin Ratio 1.2 (0.9-2); Albumin Level 3.9 gm/dl (3.4-5.0); BUN Creatinine Ratio 16.1 (10-20); Bilirubin,Total 0.4 mg/dl (0.2-1.0); Calcium 9.8 mg/dl (8.6-10.3); Est GFR (African American) 79.5 ml/min; Est GFR (Non-African American) 68.6 ml/min; Globulin 3.3 gm/dl (2.5-4.0); Potassium 4.3 mmol/L (3.5-5.1); Total Protein 7.2 gm/dl (6.0-8.3)
[2023-05-24 12:05] LABS: Troponin I High Sensitivity 9.5 pg/ml (0-20)
[2023-05-24 12:26] LABS: Adenovirus PCR Not Detected (NotDetected); Bordetella parapertussis PCR Not Detected (NotDetected); Bordetella pertussis PCR Not Detected (NotDetected); Chlamydia pneumoniae PCR Not Detected (NotDetected); Coronavirus 229E PCR Not Detected (NotDetected); Coronavirus CoV-2 (COVID19)PCR Not Detected (NotDetected); Coronavirus HKU1 PCR Not Detected (NotDetected); Coronavirus NL63 PCR Not Detected (NotDetected); Coronavirus OC43PCR Not Detected (NotDetected); Human Metapneumovirus PCR Not Detected (NotDetected); Influenza A PCR Not Detected (NotDetected); Influenza B PCR Not Detected (NotDetected); Mycoplasma pneumoniae PCR Not Detected (NotDetected); Parainfluenza Virus 1 PCR Not Detected (NotDetected); Parainfluenza Virus 2 PCR Not Detected (NotDetected); Parainfluenza Virus 3 PCR Not Detected (NotDetected); Parainfluenza Virus 4 PCR Not Detected (NotDetected); Respiratory Syncytial VirusPCR Not Detected (NotDetected); Rhinovirus/Enterovirus PCR Not Detected (NotDetected)
[2023-05-24] MEDS: OPTIRAY 320 125ml IV ONE (12:39)
--- NOTE | 2023-05-24 13:21 | CT Scan Report ---
CT angio chest PE protocol CT DOSE: 936.12 mGy.cm HISTORY: 67 years-old Male with PE. Acute chest pain with shortness of breath TECHNIQUE: Multiple CTA images of the chest were obtained after the intravenous administration of 117 ml Optiray. Coronal and sagittal MIPS were obtained from the axial data set and were submitted for review. All measurements were obtained according to NASCET criteria. A dose lowering technique was u tilized adhering to the principles of ALARA. COMPARISON: Chest radiograph of same day, chest CT 03/24/2022 FINDINGS: CTA: Heart is upper limits of normal in size. Unchanged subcentimeter cardiophrenic lymph nodes. No perica rdial effusion. Moderate to extensive coronary artery calcifications. There is atherosclerosis of the aorta without aneurysm or dissection. Patency of the imaged great vessels. No pulmonary emboli. CT CHEST: Unchanged mediastinal and hilar lymphadenopathy. Some of the lymph nodes are partially calcified. Sub carinal lymph nodes measure up to approximately 2 cm. No pneumothorax, pleural effusion or overt pulm onary edema. Emphysema with chronic fibrotic changes and intermixed atelectasis has mildly progressed . No lobar airspace consolidation typical for pneumonia. Central airways are patent. Unchanged mild upper abdominal lymphadenopathy. Hepatic steatosis. Mild gynecomastia. Healing subacut e to chronic nondisplaced fractures of the right lateral sixth through ninth ribs and anterior left s eventh rib. IMPRESSION: 1. Cardiomegaly without pulmonary emboli. 2. Progressively worsened chronic interstitial lung disease. 3. No pleural effusion or airspace consolidation typical for pneumonia. 4. Unchanged adenopathy of the chest and upper abdomen. 5. Healing subacute to chronic appearing nondisplaced bilateral rib fractures. ACT 112: Negative or not required by law. The above report was generated using voice recognition software. It may contain grammatical, syntax o r spelling errors. Electronically signed by: Yusef Chappell M.D. 05/24/2023 1:19 PM
--- NOTE | 2023-05-24 13:26 | Electrocardiogram Report ---
Test Reason : Blood Pressure : / mmHG Vent. Rate : 101 BPM Atrial Rate : 101 BPM P-R Int : 130 ms QRS Dur : 084 ms QT Int : 330 ms P-R-T Axes : 058 -30 045 degrees QTc Int : 427 ms Sinus tachycardia Left axis deviation Abnormal ECG When compared with ECG of 21-AUG-2020 16:13, No significant change was found Confirmed by Ashwin Jones ([id number]) on 05/24/2023 1:25:56 PM Referred By: REFERRED SELF Confirmed By:Ashwin Jones
--- NOTE | 2023-05-24 14:38 | History & Physical Report ---
Date of Service May 24, 2023 Assessment & Plan (1) COPD (chronic obstructive pulmonary disease): Plan: Shortness of breath, COPD exacerbation, emphysema Acute on chronic, with progressive decline. CTA with worsening chronic interstitial disease, unchanged mediastinal/hilar lymphadenopathy. No PNA. - Pt reprots chronic night sweats which have not changed, 1 day of fever. PCT pending. Azithro continued. No consolidation on CT. Bio fire is negative Azithromycin, methylprednisolone 40 mg BID --> wean as able. DuoNebs, incentive spirometry, flutter valve, Mucinex ordered. ICS/LABA continued on admit, +LAMA Titrate oxygen to 89%, do not hyperoxygenate Patient is on 2 L at bedtime oxygen at home, currently increased requirement of 2 L daytime (2) Diabetes mellitus type 2, insulin dependent: Plan: Type 2 diabetes Home oral antiglycemics held while inpatient and on steroids Glargine home 46 units continued, sliding scale based on basal dose ordered, pharmacy glycemic placed for adjustments while on steroids - bsg ac/hs. DM2 diet (3) LUIGI (generalized anxiety disorder): Plan: - no acute exacerbation - sertraline continued (4) Hypertension: Plan: Hypertension Normotensive on admission Aspirin continued (5) Rheumatoid arthritis: Plan: Rheumatoid arthritis MTX previously dced. No acute sx. No tx at this time (6) Statin myopathy: Plan: Hyperlipidemia History of statin intolerance and statin myopathy. 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 Progressively worsening chronic interstitial lung disease is noted. No evidence of pneumonia - LFTs wnl, no abdominal sx Plan DVT PPx: DOAC Diet: DM2/HH Dispo:M/S CODE: Full History of Present Illness Primary Care Provider: Harriet Carranza MD Elliot is a 67-year-old male with a past medical history of emphysema followed with pulmonology noted to have subpleural fibrotic honeycombing/paraseptal emphysema at last follow-up with stable PFTs, and COVID in 2021 with hospitalization who presents with dyspnea. Has had regular sputum production however this has not changed in color or quantity. Endorses chronic cough. On ambulatory trial in the ER patient desaturates to mid 80s. He was previously prescribed Trelegy however had difficulty affording this due to insurance. Patient last had a COPD exacerbation 1 month ago and had a prescription sent for Symbicort and prednisone taper at that time. Reports had COVID last year, and again this year around [place]. Breathing has not really improved and gradually worsened since then. Has gone to urgent care and PCP a few times for wheezing, had 2 rounds of steroids and antibiotics with minimal improvement. Started symbicort but hasn't noted a benefit. Has not been on Trelegy in the last year or so due to cost. Did use his natalya enebulizer but this hasnt helped much. More wheezing than normal since February, but greatly increased wheezing in the last 7 days. Cough is productive for yellow sputum which rosario snot changed recently. Fever to 100.4*F last night, denies night sweats. Did take tylenol today at ~7am. Denies chest pain, chest pressure, palpitations No abdominal pain. No dysuria. No urinary change. Has a history of rheumatoid arthritis without inflammatory features at follow-up this past month; has been continued on methotrexate 2.5 mg 8 tablets once weekly on Tuesdays, just saw a new mobile product manager who has discontinued this due to recurrent respiratory exacerbations. Has not seen a [employer] player in over a year. Has an appointment on 06/[address] Rolon. Has had multiple steroid courses does not think he has been on azithromycin Pt reports he did hit his RIGHT ribs in december. No longer hurts with cough. No recent falls. 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 Has recently gone several days without ETOH, no withdrawal sx. Medical Marijuana --> cream/salve and acapsule to sleep. CODE: Full Code Allergies Allergy/AdvReac Type Severity Reaction Status Date / Time rosuvastatin AdvReac muscle Verified 05/19/23 09:16 aches Home Medications Medication Instructions Recorded Confirmed Type multivitamin (Daily Multi-Vitamin 1 tab PO QAM 10/05/18 05/24/23 History tablet) aspirin 81 mg tablet,delayed 81 mg PO QAM 11/13/18 05/24/23 History release (Adult Aspirin Regimen) folic acid 1 mg tablet 1 mg PO QAM 11/13/18 05/24/23 History Medical Marijuana Card 1 dose UD 01/08/22 05/24/23 History fluticasone furoate 100 1 inh inhalation UD PRN copd 01/08/22 05/24/23 History mcg/actuation blister powder for inhalation Oxygen Home E0424 #1 ea 05/19/22 05/24/23 Rx pen needle, diabetic 32 gauge x #100 ea 01/16/23 05/24/23 Rx 5/32" (BD Marely 2nd Gen Pen Needle) fenofibrate nanocrystallized 145 145 mg PO QAM #90 tabs 01/18/23 05/24/23 Rx mg tablet metformin 1,000 mg tablet See Rx Instructions .Route 01/18/23 05/24/23 Rx .COMPLEX #180 tabs omeprazole 20 mg capsule,delayed 20 mg PO QAM #90 caps 01/18/23 05/24/23 Rx release rivaroxaban 20 mg tablet 20 mg PO QPM #30 tabs 01/19/23 05/24/23 Rx glimepiride 2 mg tablet 2 mg PO DAILY #30 tabs 01/26/23 05/24/23 Rx gabapentin 800 mg tablet 800 mg PO TID 90 days #270 tabs 02/03/23 05/24/23 Rx insulin glargine 100 unit/mL (3 46 unit (0.46 mL) subcut HS #15 mL 02/04/23 05/24/23 Rx mL) subcutaneous pen (Basaglar KwikPen U-100 Insulin) sertraline 100 mg tablet 100 mg PO QAM #90 tabs 03/24/23 05/24/23 Rx budesonide-formoterol HFA 80 2 inh inhalation Q12H #10.2 grams 05/06/23 05/24/23 Rx mcg-4.5 mcg/actuation aerosol inhaler (Symbicort) methotrexate sodium 2.5 mg tablet 20 mg (8 x 2.5 mg) PO Q7D #96 tabs 05/19/23 05/24/23 Rx benzonatate 100 mg capsule See Rx Instructions PO TID PRN 05/22/23 05/24/23 Rx cough #30 caps Past Med/Surg History Medical History (Updated 05/24/23 @ 15:03 by Paco Wu MD) History of neuroendocrine cancer Acid reflux High cholesterol Neuropathy FEET Fatty liver Anxiety History of DVT (deep vein thrombosis) multiple/most recent last yr Rheumatoid arthritis COPD (chronic obstructive pulmonary disease) COVID-[address] scan of lung CT (CHEST AND ALL THE WAY DOWN PER PT) SCAN UPCOMING NEXT FRI Pulmonary emphysema Colon polyps ? hx x1 Black lung disease Diabetes mellitus Pancreatic cancer Neuroendocrine / dx 7 yr ago ...sx intervention Surgical History History of liver biopsy History of bronchoscopy History of endoscopy History of surgery FOR ABCESS S/P SX ( TOTAL OF 2 OR 3 PROCEDURES ) History of colonoscopy S/P cataract extraction bilateral History of dental surgery H/O resection of pancreas WITH REMOVAL OF SPLEEN Family History Unknown Diabetes Cardiac disorder Lung disease Cancer Hypertension Father Pancreatic cancer Diabetes Cancer Hypertension Brother Hypertension Mother Stroke Brain cancer Other Family history of colon cancer in father No family history of bleeding disorder No significant family history Denies family history of Ovarian cancer Prostate cancer Hearing loss Heart disease Myocardial infarction Breast cancer Colorectal cancer Asthma Social History Smoking Status: Never smoker Tobacco Type: Cigarettes Age Started Using Tobacco: 18; Age Quit Using Tobacco: 45; Second Hand Exposure: No; Do You Dip or Chew Tobacco: No; Hx Alcohol Use: Yes Alcohol type: beer Alcohol Intake Frequency: 4 or More x per/Week Hx Substance Use: Yes (HX METHAMPHETAMINE/COCAINE AGE 20 - 30) Prescribed Medications: Marijuana Last Used Substance: Hours (ago) Substance Use Type Other:: MEDICAL MARIJUANA CARD - INSTRUCTED TO BRING Preferred Language: Nicaraguan Communication Ability: Effective Visual Impairment: No Limitations Hearing Ability: Normal Clinique Counter Manager Required: No Beliefs That Will Affect Care: None marital status: Current Living Situation: Spouse and Family Current Living Situation Comment: [facility] current occupational status: retired How many Children do You have: 2 Feels Safe at Home: Yes Childhood Exposure to Second-Hand Smoke: No Diet: regular Diet Comment: regular Dental Care, Regularly: No Physical Activity Frequency: 5-6 Times per Week Seatbelt Use: always Sunscreen Use: Yes Assistive Devices: Denture - Upper, Denture - Lower, Glasses and Oxygen - at Night Physical Exam Physical Exam: General: A&Ox3. NAD. Cooperative. HEENT: Atraumatic, normocephalic. Pulm: High pitched end inspiratory wheeze and scattered exp wheezing. No rales/rhonchi. Scattered fine inspiratory crackles. Symmetrical chest rise. No increased work of breathing. No respiratory distress. Cardiac: RRR, -mrg. Radial pulses intact and symmetrical. Abdominal: Nontender, nondistended, soft. BS present. Results & Data Results & Data Vital Signs (Past 12 Hours) Vital Signs Temp Pulse Pulse Resp BP BP Pulse Ox 05/24/23 13:00 97 H 20 125/84 94 05/24/23 12:12 99 H 05/24/23 12:07 101 H 18 91 05/24/23 12:05 100 H 17 86 L 05/24/23 11:26 102 H 18 93 05/24/23 11:26 102 H 18 143/95 H 93 05/24/23 11:26 93 05/24/23 11:15 36.3 C L 102 H 18 154/90 H 93 O2 Del Method O2 Flow Rate 05/24/23 13:00 Nasal Cannula 2 05/24/23 12:12 05/24/23 12:07 Nasal Cannula 2 05/24/23 12:05 Room Air 05/24/23 11:26 Room Air 05/24/23 11:26 Room Air 05/24/23 11:26 Room Air 05/24/23 11:15 Room Air PG Care Time/CCT Total # of Minutes Spent Total Time Spent with Patient: Total time spent is greater than 50% in coordination of care (as documented) at patient's floor/unit and/or counseling patient: Coding Level of Care Code 79322 INT INP/OBS CARE 3/75MIN Diagnoses COPD (chronic obstructive pulmonary disease) J44.9 Diabetes mellitus type 2, insulin dependent E11.9; Z79.4 LUIGI (generalized anxiety disorder) F41.1 Hypertension I10 Rheumatoid arthritis, involving unspecified site, unspecified whether rheumatoid factor present M06.9 Rheumatoid arthritis location: unspecified site Rheumatoid factor presence: unspecified presence Statin myopathy G72.0; T46.6X5A History of DVT (deep vein thrombosis) Z86.718 (5) Rheumatoid arthritis Rheumatoid arthritis location: unspecified site Rheumatoid factor presence: unspecified presence Qualified Code(s): M06.9 - Rheumatoid arthritis, u nspecified
[2023-05-24] MEDS ORDERED: GLUCOSE 40% GEL 15 GM TUBE PO PRN (15:04)
[2023-05-24] MEDS ORDERED: GLUCAGON FOR INJ 1 MG VIAL SQ PRN (15:04)
[2023-05-24] MEDS ORDERED: DEXTROSE 50% 50 ML SYRINGE IV PRN (15:04)
[2023-05-24] MEDS ORDERED: PHARMACY GLYCEMIC MGMT CONSULT PRN (15:04)
[2023-05-24] MEDS ORDERED: GLUCOSE 10 TAB/TUBE PO PRN (15:04)
[2023-05-24] MEDS ORDERED: CARBOHYDRATES FOR HYPOGLYCEMIA PO PRN (15:04)
[2023-05-24] MEDS ORDERED: INSULIN ASPART PER UNIT CHARGE SC SCH (16:30)
[2023-05-24] MEDS: LANTUS PER UNIT CHARGE SC SCH ×2 (16:52→20:58)
[2023-05-24] MEDS ORDERED: ACETAMINOPHEN 325 MG TAB PO PRN (17:33)
[2023-05-24] MEDS ORDERED: ALBUT/IPRATROP 3MG/0.5MG NEB 3 ML VIAL NEB PRN (17:33)
[2023-05-24] MEDS: BENZONATATE 100 MG CAPSULE PO PRN (17:46)
[2023-05-24] MEDS: INSULIN ASPART PER UNIT CHARGE SC SCH (18:16)
--- NOTE | 2023-05-24 18:54 | Pharmacy Report ---
Pharmacy Glycemic Short Note 2 - Date of Service May 24, 2023 - Glycemic Short BSG Results (Last 24 hours): 05/24/23 05/24/23 11:29 15:51 Glucose 227 H POC Glucose 148 H OUTPATIENT ANTIDIABETIC REGIMEN: * glimepiride 2 mg PO daily * Lantus 46 units SQ HS * metformin 1000mg PO BID * HbA1c 7.9% (05/01/23) ASSESSMENT: * Elliot is a 67 YOM admitted for COPD exacerbation with a history of type 2 diabetes, insulin dependent. Pharmacy has been consulted for glycemic management while inpatient. * BSGs above goal range on admission, methylprednisolone IV started 40mg BID. Will give 0.4units/kg fo Lantus to cover steroids with dinner, may need more to cover steroids and basal needs * Novolog initiated at a weight based stress of 3 PLAN FOR INPATIENT GLYCEMIC CONTROL: * Hold outpatient oral diabetes medications * Basal insulin * Lantus 40 units x1 QDD, then 40 units HS * Bolus insulin * NovoLog per scale ACHS or Q6hrs while NPO * Goal Range: Low 110 mg/dL - High 140 mg/dL * Correction Factor: 15 mg/dL/unit * Nutritional / Prandial insulin per carb ratio of 1 unit per 5 grams CHO consumed
[2023-05-24] MEDS: AZITHROMYCIN 250 MG TAB PO ONE (18:59)
[2023-05-24] MEDS: RIVAROXABAN 20 MG TAB PO SCH (19:00)
[2023-05-24] MEDS: FLUTICASONE/VILANTEROL 100/25MCG 14 PUFFS/INHALER INH SCH (20:29)
[2023-05-24] MEDS: GABAPENTIN 800 MG TAB PO SCH (20:29)
[2023-05-24] MEDS: guaiFENesin 600 MG TABCR PO SCH (20:29)
[2023-05-24] MEDS ORDERED: LANTUS PER UNIT CHARGE SQ SCH (21:00)
[2023-05-25] MEDS: INSULIN ASPART PER UNIT CHARGE SC SCH (00:06)
[2023-05-25 07:17] LABS: Basophils # (auto) 0.04 K/uL (0.00-0.20); Basophils % (auto) 0.2 %; Eosinophils # (auto) 0.13 K/uL (0.00-0.50); Eosinophils % (auto) 0.7 %; Hematocrit (blood only) 41.9 % (42.0-52.0); Hemoglobin 14.4 g/dl (14.0-18.0); Immature Granulocytes # (auto) 0.11 K/uL (0.01-0.20); Immature Granulocytes % (auto) 0.6 %; Lymphocytes % (auto) 9.8 %; Mean Corpuscular Hemoglobin 31.4 pg (25.0-34.0); Mean Corpuscular Hgb Conc 34.4 g/dL (32.0-36.0); Mean Corpuscular Volume 91.3 fL (80.0-100.0); Mean Platelet Volume 10.6 fL (9.4-12.4); Monocytes # (auto) 1.48 K/uL (0.11-0.59); Monocytes % (auto) 8.5 %; Neutrophils # (auto) 13.93 K/uL (1.40-6.50); Neutrophils % (auto) 80.2 %; Platelet Count 480 K/uL (130-400); RDW Coefficient of Variation 18.7 % (11.5-14.5); RDW Standard Deviation 60.7 fL (36.4-46.3); Red Blood Count 4.59 M/uL (4.70-6.10); White Blood Count 17.39 K/ul (4.8-10.8)
[2023-05-25 07:42] LABS: BUN Creatinine Ratio 23.8 (10-20); Calcium 9.7 mg/dl (8.6-10.3); Est GFR (African American) 106.5 ml/min; Est GFR (Non-African American) 91.9 ml/min; Potassium 3.9 mmol/L (3.5-5.1)
[2023-05-25] MEDS: hydrALAZINE HCL 20 MG/ML VIAL IV ONE (07:49)
[2023-05-25] MEDS: AZITHROMYCIN 250 MG TAB PO SCH (07:52)
[2023-05-25] MEDS: PANTOprazole 40 MG TAB PO SCH (07:52)
[2023-05-25] MEDS: methylPREDNISolone 40 MG in SYRINGE 0 ML IV SCH (07:53)
[2023-05-25] MEDS: ASPIRIN 81 MG ECTAB PO SCH (07:53)
[2023-05-25] MEDS: SERTRALINE HCL 100 MG TABLET PO SCH (07:53)
[2023-05-25] MEDS: UMECLIDINIUM BROMIDE 62.5MCG/BLISTER 7 PUFFS/INHALER INH SCH (07:54)
[2023-05-25] MEDS: FOLIC ACID 1 MG TAB PO SCH (07:54)
[2023-05-25] MEDS: FENOFIBRATE NANOCRYSTALLIZED 145 MG TABLET PO SCH (07:55)
[2023-05-25] MEDS: amLODIPine BESYLATE 5 MG TAB PO ONE (08:28)
--- NOTE | 2023-05-25 12:45 | Pharmacy Report ---
Pharmacy Glycemic Short Note 2 - Date of Service May 25, 2023 - Glycemic Short BSG Results (Last 24 hours): 05/24/23 05/24/23 05/24/23 15:51 20:41 20:43 Glucose POC Glucose 148 H 302 H* 323 H* 05/24/23 05/25/23 05/25/23 23:59 04:22 06:01 Glucose 104 H POC Glucose 193 H 106 H 05/25/23 05/25/23 07:41 11:23 Glucose POC Glucose 103 H 117 H OUTPATIENT ANTIDIABETIC REGIMEN: * Lantus 46 units SQ HS * Glimepiride 2 mg PO daily * metformin 1000mg PO BID HbA1c 7.9% (05/01/23) ASSESSMENT: 05/25/23: * BSGs trended down nicely overnight * Continuing on methylprednisolone 40 mg IV BID * Will continue aggressive weight-based Novolog parameters, but will allow for reduced basal dose if needed given fasting of 103 mg/dL this morning 05/24/23: * Elliot is a 67 YOM admitted for COPD exacerbation with a history of type 2 diabetes, insulin dependent. Pharmacy has been consulted for glycemic management while inpatient. * BSGs above goal range on admission, methylprednisolone IV started 40mg BID. Will give 0.4units/kg fo Lantus to cover steroids with dinner, may need more to cover steroids and basal needs * Novolog initiated at a weight based stress of 3 PLAN FOR INPATIENT GLYCEMIC CONTROL: * Hold outpatient oral diabetes medications * Basal insulin * Lantus 30-40 units SC HS (see EHR for details) * Bolus insulin * NovoLog per scale ACHS or Q6hrs while NPO * Goal Range: Low 110 mg/dL - High 140 mg/dL * Correction Factor: 15 mg/dL/unit * Nutritional / Prandial insulin per carb ratio of 1 unit per 5 grams CHO consumed
--- NOTE | 2023-05-25 15:07 | Hospitalist Progress Note ---
Date of Service May 25, 2023 Assessment & Plan (1) COPD (chronic obstructive pulmonary disease): Plan: Shortness of breath, COPD exacerbation, emphysema Acute on chronic, with progressive decline. CTA with worsening chronic interstitial disease, unchanged mediastinal/hilar lymphadenopathy. No PNA. - Pt reprots chronic night sweats which have not changed, 1 day of fever. PCT pending. Azithro continued. No consolidation on CT. Bio fire is negative Azithromycin, methylprednisolone 40 mg BID --> wean as able. DuoNebs, incentive spirometry, flutter valve, Mucinex ordered. ICS/LABA continued on admit, +LAMA Titrate oxygen to 89%, do not hyperoxygenate Patient is on 2 L at bedtime oxygen at home, currently increased requirement of 2 L daytime Patient is feeling better overall with current treatment. Plan to continue current treatment for now. (2) Diabetes mellitus type 2, insulin dependent: Plan: Type 2 diabetes Home oral antiglycemics held while inpatient and on steroids Glargine home 46 units continued, sliding scale based on basal dose ordered, pharmacy glycemic placed for adjustments while on steroids - bsg ac/hs. DM2 diet (3) LUIGI (generalized anxiety disorder): Plan: - no acute exacerbation - sertraline continued (4) Hypertension: Plan: Blood pressure elevated this morning Ordered a dose of IV hydralazine and oral Norvasc Blood pressure controlled after morning dose Blood pressure elevated most likely due to stress Aspirin continued (5) Rheumatoid arthritis: Plan: Rheumatoid arthritis MTX previously dced. No acute sx. No tx at this time (6) Statin myopathy: Plan: Hyperlipidemia History of statin intolerance and statin myopathy. 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 Progressively worsening chronic interstitial lung disease is noted. No evidence of pneumonia - LFTs wnl, no abdominal sx Plan DVT PPx: DOAC Diet: DM2/HH Dispo:M/S CODE: Full Admission and Anticipated Discharge Date Admission Date: May 24, 2023 Subjective Patient feels better compared to when he first presented. Still wheezy and short of breath. Review of Systems Review of Systems: All systems reviewed & are unremarkable except as noted in Subjective Physical Exam Physical Exam: General: Awake, conversant Heart: S1, S2/regular rate and rhythm, no murmur rubs or gallops Lungs: Bilateral wheezes with prolonged expiration. Normal effort Abdomen: Soft/nontender/nondistended. No hepatosplenomegaly Extremities: No clubbing/cyanosis. No edema Behavior: Appropriate, cooperative Results & Data Results & Data Vital Signs (Past 12 Hours) Vital Signs Temp Pulse Pulse Pulse Resp BP BP 05/25/23 15:00 36.7 C 96 H 16 131/83 05/25/23 09:37 05/25/23 08:31 88 151/87 H 05/25/23 07:05 36.6 C 90 18 175/103 H 166/103 H Pulse Ox O2 Del Method O2 Flow Rate 05/25/23 15:00 93 Nasal Cannula 2 05/25/23 09:37 Nasal Cannula 2 05/25/23 08:31 05/25/23 07:05 93 Nasal Cannula 2 Laboratory Results Abnormal lab results 05/24/23 05/24/23 05/24/23 Range/Units 15:51 20:41 20:43 WBC (4.8-10.8) K/ul RBC (4.70-6.10) M/uL Hct (42.0-52.0) % RDW Std Deviation (36.4-46.3) fL RDW Coeff of Shira (11.5-14.5) % Plt Count (130-400) K/uL Neut # (Auto) (1.40-6.50) K/uL [place] # (Auto) (0.11-0.59) K/uL BUN/Creatinine Ratio (10-20) Glucose (70-99(Fasting)) mg/dl POC Glucose 148 H 302 H* 323 H* (70-99) mg/dl 05/24/23 05/25/23 05/25/23 Range/Units 23:59 04:22 06:01 WBC 17.39 H (4.8-10.8) K/ul RBC 4.59 L (4.70-6.10) M/uL Hct 41.9 L (42.0-52.0) % RDW Std Deviation 60.7 H (36.4-46.3) fL RDW Coeff of Shira 18.7 H (11.5-14.5) % Plt Count 480 H (130-400) K/uL Neut # (Auto) 13.93 H (1.40-6.50) K/uL [place] # (Auto) 1.48 H (0.11-0.59) K/uL BUN/Creatinine Ratio 23.8 H (10-20) Glucose 104 H (70-99(Fasting)) mg/dl POC Glucose 193 H 106 H (70-99) mg/dl 05/25/23 05/25/23 Range/Units 07:41 11:23 WBC (4.8-10.8) K/ul RBC (4.70-6.10) M/uL Hct (42.0-52.0) % RDW Std Deviation (36.4-46.3) fL RDW Coeff of Shira (11.5-14.5) % Plt Count (130-400) K/uL Neut # (Auto) (1.40-6.50) K/uL [place] # (Auto) (0.11-0.59) K/uL BUN/Creatinine Ratio (10-20) Glucose (70-99(Fasting)) mg/dl POC Glucose 103 H 117 H (70-99) mg/dl PG Care Time/CCT Total # of Minutes Spent Total Time Spent with Patient: Total time spent is greater than 50% in coordination of care (as documented) at patient's floor/unit and/or counseling patient: Coding Level of Care Code 41294 SUB INP/OBS CARE 235MIN Diagnoses COPD (chronic obstructive pulmonary disease) J44.9 Diabetes mellitus type 2, insulin dependent E11.9; Z79.4 LUIGI (generalized anxiety disorder) F41.1 Hypertension I10 Rheumatoid arthritis, involving unspecified site, unspecified whether rheumatoid factor present M06.9 Rheumatoid arthritis location: unspecified site Rheumatoid factor presence: unspecified presence Statin myopathy G72.0; T46.6X5A History of DVT (deep vein thrombosis) Z86.718 (5) Rheumatoid arthritis Rheumatoid arthritis location: unspecified site Rheumatoid factor presence: unspecified presence Qualified Code(s): M06.9 - Rheumatoid arthritis, unspecified
[2023-05-25] MEDS: LANTUS PER UNIT CHARGE SC SCH (21:49)
[2023-05-26 07:38] LABS: Hematocrit (blood only) 43.4 % (42.0-52.0); Hemoglobin 15.5 g/dl (14.0-18.0); Mean Corpuscular Hemoglobin 32.2 pg (25.0-34.0); Mean Corpuscular Hgb Conc 35.7 g/dL (32.0-36.0); Mean Platelet Volume 10.5 fL (9.4-12.4); Platelet Count 554 K/uL (130-400); RDW Coefficient of Variation 18.3 % (11.5-14.5); RDW Standard Deviation 58.1 fL (36.4-46.3); Red Blood Count 4.82 M/uL (4.70-6.10); White Blood Count 24.16 K/ul (4.8-10.8)
[2023-05-26 07:59] LABS: BUN Creatinine Ratio 30.9 (10-20); Calcium 9.7 mg/dl (8.6-10.3); Est GFR (African American) 98.2 ml/min; Est GFR (Non-African American) 84.7 ml/min; Potassium 4.4 mmol/L (3.5-5.1)
[2023-05-26 08:12] LABS: Basophils # (auto) 0.03 K/uL (0.00-0.20); Basophils % (auto) 0.1 %; Eosinophils # (auto) 0.01 K/uL (0.00-0.50); Howell-Jolly Bodies 1+; Immature Granulocytes # (auto) 0.18 K/uL (0.01-0.20); Immature Granulocytes % (auto) 0.7 %; Lymphocytes # (auto) 1.89 K/uL (1.20-3.40); Lymphocytes % (auto) 7.8 %; Monocytes # (auto) 1.15 K/uL (0.11-0.59); Monocytes % (auto) 4.8 %; Neutrophils % (auto) 86.6 %; Pappenheimer Bodies 1+; Polychromasia 1+; Target Cells 1+; Toxic Vacuolation 1+
[2023-05-26] MEDS: LANTUS PER UNIT CHARGE SC SCH ×2 (08:38→21:02)
--- NOTE | 2023-05-26 13:17 | Pharmacy Report ---
Pharmacy Glycemic Short Note 2 - Date of Service May 26, 2023 - Glycemic Short BSG Results (Last 24 hours): 05/25/23 05/25/23 05/26/23 16:27 20:28 07:14 Glucose 195 H POC Glucose 162 H 147 H 05/26/23 05/26/23 07:31 11:29 Glucose POC Glucose 177 H 92 OUTPATIENT ANTIDIABETIC REGIMEN: * Lantus 46 units SQ HS * Glimepiride 2 mg PO daily * metformin 1000mg PO BID HbA1c 7.9% (05/01/23) ASSESSMENT: 05/26/23: * BSGs well-controlled yesterday, ranging 103-162 mg/dL w/ fasting BSG of 177 mg/dL this morning * Received 75 units of insulin (40 units of basal and 35 units of prandial/correctional bolus) * Continues on methylprednisolone 40 mg IV BID * Will change to BID basal today and slightly loosen Novolog parameters given lunchtime BSG of 92 mg/dL 05/25/23: * BSGs trended down nicely overnight * Continuing on methylprednisolone 40 mg IV BID * Will continue aggressive weight-based Novolog parameters, but will allow for reduced basal dose if needed given fasting of 103 mg/dL this morning 05/24/23: * Elliot is a 67 YOM admitted for COPD exacerbation with a history of type 2 diabetes, insulin dependent. Pharmacy has been consulted for glycemic management while inpatient. * BSGs above goal range on admission, methylprednisolone IV started 40mg BID. Will give 0.4units/kg fo Lantus to cover steroids with dinner, may need more to cover steroids and basal needs * Novolog initiated at a weight based stress of 3 PLAN FOR INPATIENT GLYCEMIC CONTROL: * Hold outpatient oral diabetes medications * Basal insulin * Lantus 15-20-25 units SC BID (see EHR for details) * Bolus insulin * NovoLog per scale ACHS or Q6hrs while NPO * Goal Range: Low 110 mg/dL - High 140 mg/dL * Correction Factor: 20 mg/dL/unit * Nutritional / Prandial insulin per carb ratio of 1 unit per 6 grams CHO consumed
--- NOTE | 2023-05-26 13:46 | Hospitalist Progress Note ---
Date of Service May 26, 2023 Assessment & Plan (1) COPD (chronic obstructive pulmonary disease): Plan: Shortness of breath, COPD exacerbation, emphysema Acute on chronic, with progressive decline. CTA with worsening chronic interstitial disease, unchanged mediastinal/hilar lymphadenopathy. No PNA. - Pt reprots chronic night sweats which have not changed, 1 day of fever. PCT pending. Azithro continued. No consolidation on CT. Bio fire is negative Azithromycin, methylprednisolone 40 mg BID. Lower frequency to once daily Solu-Medrol. Continue DuoNebs, incentive spirometry, flutter valve, Mucinex ordered. ICS/LABA continued on admit, +LAMA Titrate oxygen to 89%, do not hyperoxygenate Patient is on 2 L at bedtime oxygen at home, currently increased requirement of 2 L daytime Patient is feeling better overall with current treatment. Plan to continue current treatment for now. (2) Diabetes mellitus type 2, insulin dependent: Plan: Type 2 diabetes Home oral antiglycemics held while inpatient and on steroids Glargine home 46 units continued, sliding scale based on basal dose ordered, pharmacy glycemic placed for adjustments while on steroids - bsg ac/hs. DM2 diet (3) LUIGI (generalized anxiety disorder): Plan: - no acute exacerbation - sertraline continued (4) Hypertension: Plan: Blood pressure controlled today Aspirin continued (5) Rheumatoid arthritis: Plan: Rheumatoid arthritis MTX previously dced. No acute sx. No tx at this time (6) Statin myopathy: Plan: Hyperlipidemia History of statin intolerance and statin myopathy. 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 Progressively worsening chronic interstitial lung disease is noted. No evidence of pneumonia - LFTs wnl, no abdominal sx Plan DVT PPx: DOAC Diet: DM2/HH Dispo:M/S CODE: Full Admission and Anticipated Discharge Date Admission Date: May 24, 2023 Subjective Patient says he feels better. Breathing better. Not back to his usual baseline yet. Still gets winded with exertion. Review of Systems Review of Systems: All systems reviewed & are unremarkable except as noted in Subjective Physical Exam Physical Exam: General: Awake, conversant Heart: S1, S2/regular rate and rhythm, no murmur rubs or gallops Lungs: Mild bilateral wheezes with prolonged expiration. Normal effort Abdomen: Soft/nontender/nondistended. No hepatosplenomegaly Extremities: No clubbing/cyanosis. No edema Behavior: Appropriate, cooperative Results & Data Results & Data Vital Signs (Past 12 Hours) Vital Signs Temp Pulse Resp BP Pulse Ox O2 Del Method O2 Flow Rate 05/26/23 06:20 36.6 C 83 18 130/85 95 Nasal Cannula 2 PG Care Time/CCT Total # of Minutes Spent Total Time Spent with Patient: Total time spent is greater than 50% in coordination of care (as documented) at patient's floor/unit and/or counseling patient: Coding Level of Care Code 74948 SUB INP/OBS CARE 2/35MIN Diagnoses COPD (chronic obstructive pulmonary disease) J44.9 Diabetes mellitus type 2, insulin dependent E11.9; Z79.4 LUIGI (generalized anxiety disorder) F41.1 Hypertension I10 Rheumatoid arthritis, involving unspecified site, unspecified whether rheumatoid factor present M06.9 Rheumatoid arthritis location: unspecified site Rheumatoid factor presence: unspecified presence Statin myopathy G72.0; T46.6X5A History of DVT (deep vein thrombosis) Z86.718 (5) Rheumatoid arthritis Rheumatoid arthritis location: unspecified site Rheumatoid factor presence: unspecified presence Qualified Code(s): M06.9 - Rheumatoid arthritis, unspecified
[2023-05-27 06:37] LABS: Basophils # (auto) 0.09 K/uL (0.00-0.20); Basophils % (auto) 0.4 %; Eosinophils # (auto) 0.21 K/uL (0.00-0.50); Hematocrit (blood only) 44.7 % (42.0-52.0); Hemoglobin 15.2 g/dl (14.0-18.0); Immature Granulocytes # (auto) 0.25 K/uL (0.01-0.20); Immature Granulocytes % (auto) 1.2 %; Lymphocytes # (auto) 3.78 K/uL (1.20-3.40); Lymphocytes % (auto) 18.3 %; Mean Corpuscular Hemoglobin 31.4 pg (25.0-34.0); Mean Corpuscular Volume 92.4 fL (80.0-100.0); Mean Platelet Volume 10.7 fL (9.4-12.4); Monocytes # (auto) 1.44 K/uL (0.11-0.59); Neutrophils # (auto) 14.89 K/uL (1.40-6.50); Neutrophils % (auto) 72.1 %; Platelet Count 597 K/uL (130-400); RDW Coefficient of Variation 18.3 % (11.5-14.5); RDW Standard Deviation 59.4 fL (36.4-46.3); Red Blood Count 4.84 M/uL (4.70-6.10); White Blood Count 20.66 K/ul (4.8-10.8)
[2023-05-27 07:04] LABS: BUN Creatinine Ratio 31.4 (10-20); Calcium 9.4 mg/dl (8.6-10.3); Creatinine Clr Calc Pharmacy 83.2 ml/min; Est GFR (African American) 85.9 ml/min; Est GFR (Non-African American) 74.1 ml/min; Potassium 4.1 mmol/L (3.5-5.1)
[2023-05-27] MEDS: methylPREDNISolone 40 MG in SYRINGE 0 ML IV SCH (09:56)
[2023-05-27] MEDS: LANTUS PER UNIT CHARGE SC SCH (10:02)
--- NOTE | 2023-05-27 12:13 | Pharmacy Report ---
Pharmacy Glycemic Short Note 2 - Date of Service May 27, 2023 - Glycemic Short BSG Results (Last 24 hours): 05/26/23 05/26/23 05/27/23 16:28 20:41 05:57 Glucose 86 POC Glucose 165 H 287 H 05/27/23 05/27/23 07:42 11:56 Glucose POC Glucose 90 73 OUTPATIENT ANTIDIABETIC REGIMEN: * Lantus 46 units SQ HS * Glimepiride 2 mg PO daily * metformin 1000mg PO BID HbA1c 7.9% (05/01/23) ASSESSMENT: 05/27/23: * BSGs increased throughout the day yesterday following lunch * Steroids decreased to methylprednisolone 40 mg IV daily (will reduce basal insulin today) * Lunchtime BSG of 73 mg/dL, will loosen carb ratio despite increased BSGs throughout day yesterday to decrease likelihood of hypoglycemia 05/26/23: * BSGs well-controlled yesterday, ranging 103-162 mg/dL w/ fasting BSG of 177 mg/dL this morning * Received 75 units of insulin (40 units of basal and 35 units of prandial/correctional bolus) * Continues on methylprednisolone 40 mg IV BID * Will change to BID basal today and slightly loosen Novolog parameters given lunchtime BSG of 92 mg/dL 05/25/23: * BSGs trended down nicely overnight * Continuing on methylprednisolone 40 mg IV BID * Will continue aggressive weight-based Novolog parameters, but will allow for reduced basal dose if needed given fasting of 103 mg/dL this morning 05/24/23: * Elliot is a 67 YOM admitted for COPD exacerbation with a history of type 2 diabetes, insulin dependent. Pharmacy has been consulted for glycemic management while inpatient. * BSGs above goal range on admission, methylprednisolone IV started 40mg BID. Will give 0.4units/kg fo Lantus to cover steroids with dinner, may need more to cover steroids and basal needs * Novolog initiated at a weight based stress of 3 PLAN FOR INPATIENT GLYCEMIC CONTROL: * Hold outpatient oral diabetes medications * Basal insulin - decrease * Lantus 25 units SC x 1 this morning with IV methylprednisolone * Reassess in AM * Bolus insulin * NovoLog per scale ACHS or Q6hrs while NPO * Goal Range: Low 110 mg/dL - High 140 mg/dL * Correction Factor: 20 mg/dL/unit * Nutritional / Prandial insulin per carb ratio of 1 unit per 7 grams CHO consumed
--- NOTE | 2023-05-27 14:23 | Hospitalist Progress Note ---
Date of Service May 27, 2023 Assessment & Plan (1) COPD (chronic obstructive pulmonary disease): Plan: Shortness of breath, COPD exacerbation, emphysema Acute on chronic, with progressive decline. CTA with worsening chronic interstitial disease, unchanged mediastinal/hilar lymphadenopathy. No PNA. - Pt reprots chronic night sweats which have not changed, 1 day of fever. PCT pending. Azithro continued. No consolidation on CT. Bio fire is negative Azithromycin, methylprednisolone 40 mg BID. Lower frequency to once daily Solu-Medrol. Continue DuoNebs, incentive spirometry, flutter valve, Mucinex ordered. ICS/LABA continued on admit, +LAMA Titrate oxygen to 89%, do not hyperoxygenate Patient is on 2 L at bedtime oxygen at home, currently increased requirement of 2 L daytime Patient is feeling better overall with current treatment. Plan to continue current treatment for now. Plan to switch to p.o. prednisone tomorrow Plan to check rest and exercise tomorrow Plan to discharge tomorrow (2) Diabetes mellitus type 2, insulin dependent: Plan: Type 2 diabetes Home oral antiglycemics held while inpatient and on steroids Glargine home 46 units continued, sliding scale based on basal dose ordered, pharmacy glycemic placed for adjustments while on steroids - bsg ac/hs. DM2 diet (3) LUIGI (generalized anxiety disorder): Plan: - no acute exacerbation - sertraline continued (4) Hypertension: Plan: Blood pressure controlled today Aspirin continued (5) Rheumatoid arthritis: Plan: Rheumatoid arthritis MTX previously dced. No acute sx. No tx at this time (6) Statin myopathy: Plan: Hyperlipidemia History of statin intolerance and statin myopathy. 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 Progressively worsening chronic interstitial lung disease is noted. No evidence of pneumonia - LFTs wnl, no abdominal sx Plan DVT PPx: DOAC Diet: DM2/HH Dispo:M/S CODE: Full Admission and Anticipated Discharge Date Admission Date: May 24, 2023 Subjective Patient feels better. He notes that his oxygen level drops when he walks. He also gets slightly winded. Review of Systems Review of Systems: All systems reviewed & are unremarkable except as noted in Subjective Physical Exam Physical Exam: General: Awake, conversant Heart: S1, S2/regular rate and rhythm, no murmur rubs or gallops Lungs: Mild bilateral wheezes with prolonged expiration. Normal effort Abdomen: Soft/nontender/nondistended. No hepatosplenomegaly Extremities: No clubbing/cyanosis. No edema Behavior: Appropriate, cooperative Results & Data Results & Data Vital Signs (Past 12 Hours) Vital Signs Temp Pulse Resp BP Pulse Ox O2 Del Method O2 Flow Rate 05/27/23 12:12 36.6 C 88 16 130/82 95 Nasal Cannula 2 05/27/23 07:58 Nasal Cannula 2 05/27/23 07:32 36.7 C 90 16 132/85 96 Nasal Cannula 2 05/27/23 03:30 95 Room Air 2 PG Care Time/CCT Total # of Minutes Spent Total Time Spent with Patient: Total time spent is greater than 50% in coordination of care (as documented) at patient's floor/unit and/or counseling patient: Coding Level of Care Code 60347 SUB INP/OBS CARE 2/35MIN Diagnoses COPD (chronic obstructive pulmonary disease) J44.9 Diabetes mellitus type 2, insulin dependent E11.9; Z79.4 LUIGI (generalized anxiety disorder) F41.1 Hypertension I10 Rheumatoid arthritis, involving unspecified site, unspecified whether rheumatoid factor present M06.9 Rheumatoid arthritis location: unspecified site Rheumatoid factor presence: unspecified presence Statin myopathy G72.0; T46.6X5A History of DVT (deep vein thrombosis) Z86.718 (5) Rheumatoid arthritis Rheumatoid arthritis location: unspecified site Rheumatoid factor presence: unspecified presence Qualified Code(s): M06.9 - Rheumatoid arthritis, unspecified
[2023-05-28] MEDS: LANTUS PER UNIT CHARGE SC ONE (09:05)
--- NOTE | 2023-05-28 09:57 | Discharge Summary ---
Date of Service May 28, 2023 Admission HPI Per Admitting Provider Elliot is a 67-year-old male with a past medical history of emphysema followed with pulmonology noted to have subpleural fibrotic honeycombing/paraseptal emphysema at last follow-up with stable PFTs, and COVID in 2021 with hospitalization who presents with dyspnea. Has had regular sputum production however this has not changed in color or quantity. Endorses chronic cough. On ambulatory trial in the ER patient desaturates to mid 80s. He was previously prescribed Trelegy however had difficulty affording this due to insurance. Patient last had a COPD exacerbation 1 month ago and had a prescription sent for Symbicort and prednisone taper at that time. Reports had COVID last year, and again this year around [place]. Breathing has not really improved and gradually worsened since then. Has gone to urgent care and PCP a few times for wheezing, had 2 rounds of steroids and antibiotics with minimal improvement. Started symbicort but hasn't noted a benefit. Has not been on Trelegy in the last year or so due to cost. Did use his natalya enebulizer but this hasnt helped much. More wheezing than normal since February, but greatly increased wheezing in the last 7 days. Cough is productive for yellow sputum which rosario snot changed recently. Fever to 100.4*F last night, denies night sweats. Did take tylenol today at ~7am. Denies chest pain, chest pressure, palpitations No abdominal pain. No dysuria. No urinary change. Has a history of rheumatoid arthritis without inflammatory features at follow-up this past month; has been continued on methotrexate 2.5 mg 8 tablets once weekly on Tuesdays, just saw a new dev ops engineer who has discontinued this due to recurrent respiratory exacerbations. Has not seen a formation fracturing operator in over a year. Has an appointment on 06/[address] Rolon. Has had multiple steroid co urses does not think he has been on azithromycin Pt reports he did hit his RIGHT ribs in december. No longer hurts with cough. No recent falls. 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 Has recently gone several days without ETOH, no withdrawal sx. Medical Marijuana --> cream/salve and acapsule to sleep. CODE: Full Code Admission Exam Per Admitting Provider General: A&Ox3. NAD. Cooperative. HEENT: Atraumatic, normocephalic. Pulm: High pitched end inspiratory wheeze and scattered exp wheezing. No rales/rhonchi. Scattered fine inspiratory crackles. Symmetrical chest rise. No increased work of breathing. No respiratory distress. Cardiac: RRR, -mrg. Radial pulses intact and symmetrical. Abdominal: Nontender, nondistended, soft. BS present. Principal Diagnosis Acute exacerbation of COPD Discharge Exam General: Awake, conversant Heart: S1, S2/regular rate and rhythm, no murmur rubs or gallops Lungs: Prolonged expiration. No wheezes heard. Normal effort Abdomen: Soft/nontender/nondistended. No hepatosplenomegaly Extremities: No clubbing/cyanosis. No edema Behavior: Appropriate, cooperative Discharge Data Allergies Allergy/AdvReac Type Severity Reaction Status Date / Time rosuvastatin AdvReac muscle Verified 05/19/23 09:16 aches Consultations 05/24/23 14:17 ED Decision to Admit Stat Ordered Studies 05/24/23 11:30 CT angio chest PE protocol Stat Hospital Course (1) COPD (chronic obstructive pulmonary disease): Shortness of breath, COPD exacerbation, emphysema Acute on chronic, with progressive decline. CTA with worsening chronic interstitial disease, unchanged mediastinal/hilar lymphadenopathy. No PNA. Patient was treated with azithromycin, Solu-Medrol, DuoNebs. Improved Being discharged on p.o. prednisone Rest and exercise completed. Patient is needing 2 L of oxygen on exertion (2) Diabetes mellitus type 2, insulin dependent: Type 2 diabetes Glargine home 46 units continued (3) LUIGI (generalized anxiety disorder): - no acute exacerbation - sertraline continued (4) Hypertension: Blood pressure controlled today Aspirin continued (5) Rheumatoid arthritis: Rheumatoid arthritis MTX previously dced. No acute sx. No tx at this time (6) Statin myopathy: Hyperlipidemia History of statin intolerance and statin myopathy. 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 Progressively worsening chronic interstitial lung disease is noted. No evidence of pneumonia - LFTs wnl, no abdominal sx Plan DVT PPx: DOAC Diet: DM2/HH Dispo:M/S CODE: Full Total Time Total Time Spent Total Time Spent (In Minutes): 35 Discharge Plan Discharge Items Patient Disposition: Home - Self-Care Reason For Visit: AOC COPD Discharge Diagnosis: Acute COPD exacerbation Activity: Resume your previous activity Non-emergency contact: Primary Care Provider Call non-emergency contact if: you have any medication questions and your symptoms worsen Follow-up/Referrals: Harriet Carranza MD [Primary Care Provider] - 06/03/23 2:00 pm Diet: Carb Consistent or DM2 Addtl Attending Provider Instructions: Advised to follow-up with PCP in 1 week Advised to follow-up with formation fracturing operator in 1 month Pending Studies at Discharge: No Stand-Alone Forms: My [facility] [employer] Medications and DC Order Prescriptions: New prednisone 10 mg tablet 10 mg PO DAILY Qty: 20 0RF Rx Instructions: 4 tabs for 2 days, then drop by 1 tab every 2 days, then stop Continued (DME) Oxygen Home E0424 Liters Per Minute See Rx Instructions .Route Qty: 1 0RF Rx Instructions: 2L/MIN VIA NASAL CANNULA AT HS. NO LONGER USING FOR AMBULATION. (DME) pen needle, diabetic [BD Marely 2nd Gen Pen Needle] 32 gauge x 5/32" needle See Rx Instructions .Route Qty: 100 1RF Rx Instructions: USE TO INJECT BASAGLAR ONCE DAILY OR DIRECTED. DX CODE: E11.9 metformin 1,000 mg tablet See Rx Instructions .ROUTE .COMPLEX Qty: 180 1RF Dose Instruction: TAKE 1 TABLET BY MOUTH TWICE A DAY Rx Instructions: TAKE 1 TABLET BY MOUTH TWICE A DAY fenofibrate nanocrystallized 145 mg tablet 145 mg PO QAM Qty: 90 3RF omeprazole 20 mg capsule,delayed release(DR/EC) 20 mg PO QAM Qty: 90 1RF Rx Instructions: every morning before breakfast rivaroxaban 20 mg tablet 20 mg PO QPM Qty: 30 5RF gabapentin 800 mg tablet 800 mg PO TID 90 Days Qty: 270 1RF insulin glargine [Basaglar KwikPen U-100 Insulin] 100 unit/mL (3 mL) insulin pen 46 unit subcut HS Qty: 15 5RF sertraline 100 mg tablet 100 mg PO QAM Qty: 90 1RF budesonide-formoterol [Symbicort] 80-4.5 mcg/actuation HFA aerosol inhaler 2 inh inhalation Q12H Qty: 10.2 0RF benzonatate 100 mg capsule See Rx Instructions PO TID PRN (Reason: cough) Qty: 30 1RF Rx Instructions: 1 to 2 capsules PO TID PRN; multivitamin [Daily Multi-Vitamin] tablet 1 tab PO QAM aspirin [Adult Aspirin Regimen] 81 mg tablet,delayed release (DR/EC) 81 mg PO QAM folic acid 1 mg tablet 1 mg PO QAM glimepiride 2 mg tablet 2 mg PO DAILY Qty: 30 2RF methotrexate sodium 2.5 mg tablet 20 mg PO Q7D Qty: 96 0RF fluticasone furoate 100 mcg/actuation blister with device 1 inh inhalation UD PRN (Reason: copd) Medical Marijuana Card 1 dose UD Discharge Orders: Discharge Order (Routine); Ordered 05/28/23 Ordered By: Maddy Kong Admission Data Admit Date/Time: 05/24/23 14:58 Attending Provider: Maddy Kong Admit Provider: Paco Wu Primary Care Provider: Harriet Carranza Other Providers: Paco Wu Other Interventions: Discharge Summary Assessment (RN) Last Done: 05/28/23 14:56 Coding Level of Care Code 35220 INP/OBS DISCH >30 MIN Diagnoses COPD (chronic obstructive pulmonary disease) J44.9 Diabetes mellitus type 2, insulin dependent E11.9; Z79.4 LUIGI (generalized anxiety disorder) F41.1 Hypertension I10 Rheumatoid arthritis, involving unspecified site, unspecified whether rheumatoid factor present M06.9 Rheumatoid arthritis location: unspecified site Rheumatoid factor presence: unspecified presence Statin myopathy G72.0; T46.6X5A History of DVT (deep vein thrombosis) Z86.718
[2023-05-28] MEDS: predniSONE 20 MG TAB PO STA (11:04)
--- NOTE | 2023-05-28 14:07 | Pharmacy Report ---
Pharmacy Glycemic Short Note 2 - Date of Service May 28, 2023 - Glycemic Short BSG Results (Last 24 hours): 05/27/23 05/27/23 05/28/23 16:37 20:32 07:51 POC Glucose 178 H 198 H 96 05/28/23 12:01 POC Glucose 87 OUTPATIENT ANTIDIABETIC REGIMEN: * Lantus 46 units SQ HS * Glimepiride 2 mg PO daily * metformin 1000mg PO BID HbA1c 7.9% (05/01/23) ASSESSMENT: 05/27: * BSGs 657-298-69-87mg/dL the last 24h: received 25 units of basal and 29 units of bolus insulin yesterday. * Methylpred 40mg IV daily changed to prednisone 40mg X 1 today (? discharge). Tolerating a diet. * Lantus reduced ~ 20% today given adjustment in steroids and fasting BSG slightly low this AM. Will reassess basal again tomorrow. Novolog loosened today after lunch given BSGs today 96 and 87mg/dL. Consider different scales for AM and evening (trends high at dinner/HS and low in AM/lunch). 05/27/23: * BSGs increased throughout the day yesterday following lunch * Steroids decreased to methylprednisolone 40 mg IV daily (will reduce basal insulin today) * Lunchtime BSG of 73 mg/dL, will loosen carb ratio despite increased BSGs throughout day yesterday to decrease likelihood of hypoglycemia 05/26/23: * BSGs well-controlled yesterday, ranging 103-162 mg/dL w/ fasting BSG of 177 mg/dL this morning * Received 75 units of insulin (40 units of basal and 35 units of prandial/correctional bolus) * Continues on methylprednisolone 40 mg IV BID * Will change to BID basal today and slightly loosen Novolog parameters given lunchtime BSG of 92 mg/dL 05/25/23: * BSGs trended down nicely overnight * Continuing on methylprednisolone 40 mg IV BID * Will continue aggressive weight-based Novolog parameters, but will allow for reduced basal dose if needed given fasting of 103 mg/dL this morning 05/24/23: * Elliot is a 67 YOM admitted for COPD exacerbation with a history of type 2 diabetes, insulin dependent. Pharmacy has been consulted for glycemic management while inpatient. * BSGs above goal range on admission, methylprednisolone IV started 40mg BID. Will give 0.4units/kg fo Lantus to cover steroids with dinner, may need more to cover steroids and basal needs * Novolog initiated at a weight based stress of 3 PLAN FOR INPATIENT GLYCEMIC CONTROL: * Hold outpatient oral diabetes medications * Basal insulin - decrease * Lantus 20 units SC x 1 this morning * Reassess in AM * Bolus insulin * NovoLog per scale ACHS or Q6hrs while NPO * Goal Range: Low 110 mg/dL - High 140 mg/dL * Correction Factor: 25 mg/dL/unit * Nutritional / Prandial insulin per carb ratio of 1 unit per 9 grams CHO consumed
[2023-05-28 19:57] LABS: Fungitell (1-3)-B-D-Glucan <31 pg/mL
== END 2023-05-28 15:10 | disposition home or self-care (01) | DRG 191 ==
LOC: ED 11:00 → 3N 14:58 → SUATTDRO 14:58 → 3N 17:22

== ENCOUNTER 2024-05-16 14:59 | Inpatient (IN) ==
--- NOTE | 2024-05-16 15:53 | Electrocardiogram Report ---
Test Reason : Blood Pressure : */* mmHG Vent. Rate : 96 BPM Atrial Rate : 96 BPM P-R Int : 140 ms QRS Dur : 90 ms QT Int : 324 ms P-R-T Axes : 57 -38 50 degrees QTcB Int : 409 ms Normal sinus rhythm Left axis deviation Abnormal ECG When compared with ECG of 24-May-2023 11:24, No significant change was found Confirmed by Nima Dumont ([id number]) on 05/16/2024 3:52:52 PM Referred By: Confirmed By: Nima Dumont
[2024-05-16 15:54] LABS: Hematocrit (blood only) 41.4 % (42.0-52.0); Hemoglobin 13.9 g/dl (14.0-18.0); Mean Corpuscular Hemoglobin 30.5 pg (25.0-34.0); Mean Corpuscular Hgb Conc 33.6 g/dL (32.0-36.0); Mean Platelet Volume 10.6 fL (9.4-12.4); Nucleated RBC # (auto) 0.02 K/uL (0.00-0.12); Nucleated RBC % (auto) 0.1 %; Platelet Count 541 K/uL (130-400); RDW Coefficient of Variation 15.8 % (11.5-14.5); Red Blood Count 4.55 M/uL (4.70-6.10)
--- NOTE | 2024-05-16 16:03 | XRay Report ---
XR chest 1V not portable CLINICAL HISTORY: Sepsis COMPARISON STUDY: 05/10/2024 FINDINGS: Stable mild cardiomegaly without pulmonary vascular congestion. Stable mild diffuse pulmona ry interstitial prominence. There is an interval small area of patchy opacity adjacent to the left up per hilum at the left upper lobe. No other consolidation or pleural effusion. No pneumothorax. IMPRESSION: Possible early pneumonia at the left upper lobe. ACT 112: Negative or not required by law. Electronically signed by: Mingo Patel M.D. 05/16/2024 4:02 PM
[2024-05-16 16:14] LABS: Basophils # (auto) 0.07 K/uL (0.00-0.20); Basophils % (auto) 0.2 %; Immature Granulocytes # (auto) 0.49 K/uL (0.01-0.20); Immature Granulocytes % (auto) 1.6 %; Lymphocytes # (auto) 1.89 K/uL (1.20-3.40); Lymphocytes % (auto) 6.4 %; Monocytes # (auto) 1.91 K/uL (0.11-0.59); Monocytes % (auto) 6.4 %; Neutrophils # (auto) 25.34 K/uL (1.40-6.50); Neutrophils % (auto) 85.4 %; Target Cells 1+
[2024-05-16 16:25] LABS: Appearance Urine Clear (Clear); Bacteria Urine Automated None Seen (None Seen); Bilirubin Urine Negative (Negative); Blood Urine Negative (Negative); Cast Urine Automated 0-2 /lpf (0-2); Color Urine Yellow; Epithelial Cell Urine Auto 0-2 /hpf (0-2); Glucose Urine UA 3+ (Negative); Ketones Urine Negative (Negative); Leukocyte Esterase Urine Negative (Negative); Nitrite Urine Negative (Negative); Protein Urine 1+ (Negative); RBC Urine Automated 0-2 /hpf (0-2); Specific Gravity Urine 1.031 (1.000-1.030); Urobilinogen Urine Negative (Negative); WBC Urine Automated 0-5 /hpf (0-5)
[2024-05-16] MEDS: AZITHROMYCIN 250 MG TAB PO ONE (16:30)
[2024-05-16] MEDS: cefTRIAXone SODIUM 2,000 MG/50 ML BAG IV STA (16:31)
[2024-05-16 16:35] LABS: Albumin Globulin Ratio 0.8 (0.9-2); Albumin Level 3.3 gm/dl (3.4-5.0); BUN Creatinine Ratio 20.5 (10-20); Bilirubin,Total 0.8 mg/dl (0.2-1.0); Calcium 9.4 mg/dl (8.6-10.3); Creatinine Clr Calc Pharmacy 104.7 ml/min; Globulin 3.9 gm/dl (2.5-4.0); Magnesium 1.4 mg/dl (1.7-2.4); Potassium 4.5 mmol/L (3.5-5.1); Total Protein 7.2 gm/dl (6.0-8.3); Troponin I High Sensitivity 23.2 pg/ml (0-20)
[2024-05-16 16:37] LABS: INR 1.1 (0.9-1.1); Partial Thromboplastin Ratio 1.1; Partial Thromboplastin Time 30 Seconds (21-31); Prothrombin Time 11.4 Seconds (9.0-12.0)
--- NOTE | 2024-05-16 16:51 | History & Physical Report ---
Date of Service May 16, 2024 Assessment & Plan (1) Left upper lobe pneumonia: (2) Hypoxia: (3) Pulmonary emphysema: Plan Elliot is a pleasant 68-year-old male with PMH of rheumatoid arthritis, T2DM, HTN, splenectomy, PE (on rivaroxaban), and COPD. He presented on 05/16 for ongoi ng low-grade fever, night sweats, SOB/dyspnea, and cough x 1 month. Patient reports that his symptoms started shortly after falling and breaking his ribs on the left side approximately 1 month ago. He was placed on antibiotics on 04/23 (Augmentin and doxycycline x 5 days). He reports that his symptoms improved after completing the course of antibiotics, but then a week later, his symptoms started to return: Worsening productive cough, KEARNS (new for him), and night sweats. He also had a CXR done last week, and was placed on a steroid taper, which he has largely completed at time of admission; 1 pill remaining. Despite these treatments, he continues to feel that his symptoms are worsening. #VIVIANE Pneumonia Failure of outpatient treatments WBC count elevated at 29.70 on arrival, and patient reports low-grade fevers at home Note: This is in the setting of prednisone use BioFire negative CXR revealed possible early pneumonia in the left upper lobe Blood cultures drawn in the ED Ceftriaxone 2000 g IV q24h Azithromycin 500 mg p.o. daily; QTc okay at 409 on arrival Incentive spirometry, flutter valve DuoNeb 3 mL Q6R Methylprednisolone 40 mg IV QAM #Acute on chronic hypoxic respiratory failure Patient is on supplemental oxygen at baseline (2L HS) He has required increased amounts over this past week, and started using it during the day Dose reduce gabapentin from 800 mg TID --> 400 mg TID Titrate supplemental oxygen to maintain SpO2 > 94% #COPD/pulmonary emphysema Continue home inhalers #Rheumatoid arthritis Hold methotrexate (with patient normally takes on Fridays) in the setting of acute infection #Leukocytosis Patient has had elevated WBC count on prior labs; ? H/o CLL Patient reports that they have been following this elevated white blood cell count for an extended period of time Trend CBC #History of splenectomy Noted; h/o pancreatic neuroendocrine tumor #History of unprovoked DVT Continue Xarelto daily; patient reports good compliance at home #T2DM Last A1c at 9.5% on 05/16/2024 Hold metformin Patient reports he is normally on Lantus 50u QAM Recommend Lantus 25u BID + SSI on patient T2DM diet BSG ACHS Adjust regimen as needed Pharmacy glycemic management consult appreciated in the setting of high-dose steroids Disposition: Admit to [facility] telemetry Full code T2DM diet VTE PPx: Xarelto History of Present Illness Chief Complaint: Abnormal labs/diagnostic testing Primary Care Provider: Harriet Carranza MD Elliot is a pleasant 68-year-old male with PMH of rheumatoid arthritis, T2DM, HTN, splenectomy, PE (on rivaroxaban), and COPD. He presented on 05/16 for ongoing low-grade fever, night sweats, SOB/dyspnea, and cough x 1 month. Patient reports that his symptoms started shortly after falling and breaking his ribs on the left side approximately 1 month ago. He was placed on antibiotics on 04/23 (Augmentin and doxycycline x 5 days). He reports that his symptoms improved after completing the course of antibiotics, but then a week later, his symptoms started to return. He reports that he has had worsening productive cough, KEARNS (new for him), and night sweats. He also had a CXR done last week, and was placed on a steroid taper, which she has largely completed at this time. Despite these treatments, continues to feel that his symptoms are worsening. Patient is on supplemental oxygen at baseline (2L at bedtime and during the daytime as needed). No CPAP at night. Patient took all of his regular morning medicine today, including his Xarelto which she takes for history of a DVT/PE. He reports no recent change in medications other than taking his prednisone taper. He is not on prednisone at baseline for his RA, but does take methotrexate weekly on Fridays. Patient reports his home pulse ox has been around 92% on 2L [place]. He reports that he has had multiple sick contacts (every one in his house has been sick including his grandchildren). He denies smoking, tobacco use, or recent alcohol use. Patient is hypertensive at 151/91 at time of admission; SpO2 94% on 2L NC. ED course: Ceftriaxone 2000 mg IV Azithromycin 500 mg p.o. ROS: Patient endorses low-grade fevers, night-sweats, LONG, productive cough (yellow sputum production), KEARNS (new for him), nausea, and chronic neuropathy in the feet. Patient denies chills, body aches, dizziness, lightheadedness, pleuritic CP, hemoptysis, SOB at rest, abdominal pain, vomiting, diarrhea, blood in the urine/stool, or melena. Allergies Allergy/AdvReac Type Severity Reaction Status Date / Time rosuvastatin AdvReac muscle Verified 05/16/24 10:02 aches Home Medications Medication Instructions Recorded Confirmed Type multivitamin (Daily Multi-Vitamin 1 tab PO QAM 10/05/18 05/16/24 History tablet) aspirin 81 mg tablet,delayed 81 mg PO QAM 11/13/18 05/16/24 History release (Adult Aspirin Regimen) pen needle, diabetic 32 gauge x #100 ea 01/16/23 05/16/24 Rx 5/32" (BD Marely 2nd Gen Pen Needle) Oxygen Home #1 ea 06/09/23 05/16/24 Rx gabapentin 800 mg tablet 800 mg PO TID 90 days #270 tabs 11/12/23 05/16/24 Rx folic acid 1 mg tablet 1 mg PO QAM #90 tabs 11/17/23 05/16/24 Rx benzonatate 200 mg capsule 200 mg PO TID PRN cough #30 caps 05/10/24 05/16/24 Rx prednisone 10 mg tablet See Rx Instructions PO DAILY #24 05/10/24 05/16/24 Rx tabs albuterol sulfate 90 mcg/actuation 2 puff inhalation QID PRN 05/16/24 05/16/24 History aerosol inhaler Shortness Of Breath Or Wheezing fluticasone fur. 100 mcg-umeclid 1 inh inhalation .EVERY 24 HOURS 05/16/24 05/16/24 History 62.5 mcg-vilant 25 mcg inhalat.powder (Trelegy Ellipta) insulin glargine 100 unit/mL (3 50 unit subcut QAM 05/16/24 05/16/24 History mL) subcutaneous pen (Ruth Moffett U-100 Insulin) metformin 1,000 mg tablet 1,000 mg PO BIDM 05/16/24 05/16/24 History methotrexate sodium 2.5 mg tablet 20 mg PO WK 05/16/24 05/16/24 History omeprazole 20 mg capsule,delayed 20 mg PO DAILYBB 05/16/24 05/16/24 History release rivaroxaban 20 mg tablet 20 mg PO QPM #30 tabs 05/16/24 05/16/24 Rx sertraline 100 mg tablet 100 mg PO QAM 05/16/24 05/16/24 History Past Med/Surg History Problem List (Updated 05/16/24 @ 17:48 by Leobardo Beltran PA-C) Left upper lobe pneumonia Restrictive pattern present on pulmonary function testing Pulmonary emphysema Microalbuminuria due to type 2 diabetes mellitus History of DVT (deep vein thrombosis) multiple/most recent last yr Hypoxia (Acute) Rheumatoid arthritis Diabetes mellitus type 2, insulin dependent History of colon polyps Hypertension (Chronic) Lymphadenopathy (Chronic) Arthritis H/O splenectomy Secondary porphyria cutanea tarda (Chronic) Rheumatoid arthritis, seronegative, multiple sites (Chronic) Recurrent cellulitis of lower extremity (Chronic) Pulmonary nodule (Chronic) Mediastinal lymphadenopathy (Chronic) Lumbar radiculopathy (Chronic) Insomnia, persistent (Chronic) Hyperlipidemia (Chronic) LUIGI (generalized anxiety disorder) (Chronic) Erectile dysfunction (Chronic) Diabetic peripheral neuropathy (Chronic) DM2 (diabetes mellitus, type 2) (Chronic) COPD (chronic obstructive pulmonary disease) (Chronic) Anemia (Chronic) Statin myopathy (Acute) Hoarseness Polyp of vocal cord and larynx Abnormal CT scan of lung Abnormal PFT Medical History (Updated 05/16/24 @ 17:48 by Leobardo Beltran PA-C) 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 hx x1 Black lung disease Diabetes mellitus Pancreatic cancer Neuroendocrine / dx 7 yr ago ...sx intervention Surgical History History of liver biopsy History of bronchoscopy History of endoscopy History of surgery History of colonoscopy S/P cataract extraction History of dental surgery H/O resection of pancreas Family History Unknown Diabetes Cardiac disorder Lung disease Cancer Hypertension Father Pancreatic cancer Diabetes Cancer Hypertension Brother Hypertension Mother Stroke Brain cancer Other Family history of colon cancer in father No family history of bleeding disorder No significant family history Denies family history of Ovarian cancer Prostate cancer Hearing loss Heart disease Myocardial infarction Breast cancer Colorectal cancer Asthma Social History Smoking Status: Former smoker Tobacco Type: Cigarettes Age Started Using Tobacco: 18; Age Quit Using Tobacco: 45; packs per day: 0; Second Hand Exposure: No; Hx Alcohol Use: Yes Alcohol type: beer Alcohol Intake Frequency: 4 or More x per/Week Hx Substance Use: Yes (HX METHAMPHETAMINE/COCAINE AGE 22 - 32) Prescribed Medications: Marijuana Last Used Substance: Hours (ago) Substance Use Type Other:: MEDICAL MARIJUANA CARD - INSTRUCTED TO BRING Preferred Language: Urdu Communication Ability: Effective Visual Impairment: No Limitations Hearing Ability: Normal Track Helper Required: No Beliefs That Will Affect Care: None marital status: Current Living Situation: Spouse and Family Current Living Situation Comment: [facility] current occupational status: retired How many Children do You have: 2 Feels Safe at Home: Yes Childhood Exposure to Second-Hand Smoke: No Diet: regular Diet Comment: regular Dental Care, Regularly: No Physical Activity Frequency: 5-6 Times per Week Seatbelt Use: always Sunscreen Use: Yes Assistive Devices: Oxygen - Continuous Review of Systems Review of Systems: See HPI above Physical Exam Physical Exam: General: no acute distress; non-toxic appearing; well-nourished; cooperative HEENT: normocephalic, atraumatic; no scleral icterus; PERRLA w/ EOMs intact; vision and hearing grossly intact Neck: supple; no lymphadenopathy; trachea midline Skin: warm, dry without signs of tenting; no cyanosis; no rashes, bruising, lesions, or erythema noted CV: chest wall NTP; RRR; S1/S2 normal; no murmurs/rubs/gallops; pulses intact and symmetric at radial, DP, and PT Lungs: no acute respiratory distress; symmetrical chest wall expansion; clear breath sounds across all lung hanson w/o adventitious sounds; no wheezing ABD: Soft, NTP; BS present; no rebound/guarding; no distention MSK: no tics or fasciculations; no edema noted in the LEs b/l, nonerythematous Neuro: A&Ox3; normal mood and affect; fluent speech; no focal deficits; sensation grossly intact in the LEs b/l Results & Data Results & Data Vital Signs (Past 12 Hours) Vital Signs Temp Pulse Resp BP Pulse Ox O2 Del Method O2 Flow Rate 05/16/24 16:12 97 H 05/16/24 15:18 94 Nasal Cannula 2 05/16/24 15:13 37.1 C 107 H 22 151/91 H 89 L Room Air Laboratory Results Abnormal lab results 05/16/24 05/16/24 Range/Units 15:37 16:09 WBC 29.70 H (4.8-10.8) K/ul RBC 4.55 L (4.70-6.10) M/uL Hgb 13.9 L (14.0-18.0) g/dl Hct 41.4 L (42.0-52.0) % RDW Std Deviation 51.0 H (36.4-46.3) fL RDW Coeff of Shira 15.8 H (11.5-14.5) % Plt Count 541 H (130-400) K/uL Neut # (Auto) 25.34 H (1.40-6.50) K/uL [place] # (Auto) 1.91 H (0.11-0.59) K/uL Immature Gran # (Auto) 0.49 H (0.01-0.20) K/uL Sodium 131 L (136-145) mmol/L Chloride 97 L (98-107) mmol/L BUN/Creatinine Ratio 20.5 H (10-20) Glucose 464 H* (70-99(Fasting)) mg/dl Magnesium 1.4 L (1.7-2.4) mg/dl Alkaline Phosphatase 120 H (34-104) U/L Troponin I High Sens 23.2 H (0-20) pg/ml Albumin 3.3 L (3.4-5.0) gm/dl Albumin/Globulin Ratio 0.8 L (0.9-2) Ur Specific [place] 1.031 H (1.000-1.030) Urine Protein 1+ H (Negative) Urine Glucose (UA) 3+ H (Negative) Diagnostic Findings Chest X-Ray 05/16/24 15:17 XR chest 1V not portable CLINICAL HISTORY: Sepsis COMPARISON STUDY: 05/10/2024 FINDINGS: Stable mild cardiomegaly without pulmonary vascular congestion. Stable mild diffuse pulmonary interstitial prominence. There is an interval small area of patchy opacity adjacent to the left upper hilum at the left upper lobe. No other consolidation or pleural effusion. No pneumothorax. IMPRESSION: Possible early pneumonia at the left upper lobe. ACT 112: Negative or not required by law. Electronically signed by: Mingo Patel M.D. 05/16/2024 4:02 PM ECG Additional Comments: ECG revealed NSR at 96 BPM; QTc 409 Code Status & VTE Plan Code Status Full code VTE Prophylaxis Plan VTE Prophylaxis will be ordered: Yes Supervising Physician Co-Signing Physician Notes I have personally seen, evaluated and examined the patient. I have also personally discussed the management of the patient with the resident physician/JENI and I agree with the exam findings documented in the history and physical examination and the documented assessment and plan unless otherwise stated below. Brief Exam: In general pleasant 68-year-old male was alert and oriented x 3 at the time of my exam. He is accompanied by his at the time of my examination. He is comfortable on 2 L of oxygen nasal cannula currently in the low 90s. He still remains tachypneic over approximately 30 breaths/min. HEENT: Normocephalic atraumatic. Heart: Regular no appreciable murmur. Lungs: Coarse bilaterally with expiratory wheezes. Abdomen: Soft nontender with positive bowel sounds. Extremities: Intact no significant edema. Neurologically: Alert and oriented x 3 with no focal deficits. Assessment/plan: As discussed above. Will follow-up in troponins. If they bump significantly we will entertain aspirin therapy and cardiology consultation. For now we will do sputum cultures azithromycin and Rocephin. Please refer to orders for further planning. PG Care Time/CCT Total # of Minutes Spent Total Time Spent with Patient: Total time spent is greater than 50% in coordination of care (as documented) at patient's floor/unit and/or counseling patient: C[place] [address] INT INP/OBS CARE 3/75MIN Patient Type Established Medical Decision Making High Complexity Diagnoses Left upper lobe pneumonia J18.9 Hypoxia R09.02 Pulmonary emphysema J43.9
[2024-05-16 17:31] LABS: Adenovirus PCR Not Detected (NotDetected); Bordetella parapertussis PCR Not Detected (NotDetected); Bordetella pertussis PCR Not Detected (NotDetected); Chlamydia pneumoniae PCR Not Detected (NotDetected); Coronavirus 229E PCR Not Detected (NotDetected); Coronavirus CoV-2 (COVID19)PCR Not Detected (NotDetected); Coronavirus HKU1 PCR Not Detected (NotDetected); Coronavirus NL63 PCR Not Detected (NotDetected); Coronavirus OC43PCR Not Detected (NotDetected); Human Metapneumovirus PCR Not Detected (NotDetected); Influenza A PCR Not Detected (NotDetected); Influenza B PCR Not Detected (NotDetected); Mycoplasma pneumoniae PCR Not Detected (NotDetected); Parainfluenza Virus 1 PCR Not Detected (NotDetected); Parainfluenza Virus 2 PCR Not Detected (NotDetected); Parainfluenza Virus 3 PCR Not Detected (NotDetected); Parainfluenza Virus 4 PCR Not Detected (NotDetected); Respiratory Syncytial VirusPCR Not Detected (NotDetected); Rhinovirus/Enterovirus PCR Not Detected (NotDetected)
[2024-05-16] MEDS: MAGNESIUM SULFATE / D5W 1 GM/100 ML BAG IV SCH (17:48)
[2024-05-16] MEDS: methylPREDNISolone 125 MG/2 ML VIAL IV STA (17:48)
[2024-05-16] MEDS: NovoLIN-R INSULIN PER UNIT CHARGE IV STA (18:03)
[2024-05-16] MEDS ORDERED: DEXTROSE 50% 50 ML SYRINGE IV PRN (18:38)
[2024-05-16] MEDS ORDERED: PHARMACY GLYCEMIC MGMT CONSULT PRN (18:38)
[2024-05-16] MEDS ORDERED: ACETAMINOPHEN 325 MG TAB PO PRN (18:38)
[2024-05-16] MEDS ORDERED: CARBOHYDRATES FOR HYPOGLYCEMIA PO PRN (18:38)
[2024-05-16] MEDS ORDERED: GLUCAGON FOR INJ 1 MG VIAL SQ PRN (18:38)
[2024-05-16] MEDS ORDERED: GLUCOSE 40% GEL 15 GM TUBE PO PRN (18:38)
[2024-05-16] MEDS ORDERED: GLUCOSE 10 TAB/TUBE PO PRN (18:38)
[2024-05-16] MEDS: ALBUT/IPRATROP 3MG/0.5MG NEB 3 ML VIAL NEB SCH (20:05)
[2024-05-16] MEDS: BENZONATATE 100 MG CAPSULE PO PRN (20:31)
[2024-05-16] MEDS: INSULIN ASPART PER UNIT CHARGE SC STA (21:16)
[2024-05-16] MEDS: INSULIN ASPART PER UNIT CHARGE SC SCH (21:24)
--- NOTE | 2024-05-16 22:33 | Emergency Department Note ---
History of Present Illness General Chief Complaint: Abnormal Labs/Diagnostic Testing Stated Complaint: CRITICAL LABS/DOC REF Time Seen by Provider: 05/16/24 15:59 History of Present Illness Provider Complaint: shortness of breath and chest pain Onset (ago): week(s) (3) Consistency/Duration: + progressively worsening Relieved By: + nothing Exacerbated By: + coughing Context: + recent illness and + trauma/injury (Patient states he fell 3 weeks ago and cracked his ribs. Patient states he was recently on prednisone, amoxicillin, and doxycycline) Known history of: COPD Associated symptoms: + cough, + sputum production and + chest congestion; no chest pain, no fever (Tmax 100), no orthopnea, no hemoptysis, no nausea/vomiting, no abdominal pain or no rash Related Data Home oxygen amount: as needed at night Home Medications Medication Instructions Recorded Confirmed Type multivitamin (Daily Multi-Vitamin 1 tab PO QAM 10/05/18 05/16/24 History tablet) aspirin 81 mg tablet,delayed 81 mg PO QAM 11/13/18 05/16/24 History release (Adult Aspirin Regimen) pen needle, diabetic 32 gauge x #100 ea 01/16/23 05/16/24 Rx 5/32" (BD Marely 2nd Gen Pen Needle) Oxygen Home #1 ea 06/09/23 05/16/24 Rx gabapentin 800 mg tablet 800 mg PO TID 90 days #270 tabs 11/12/23 05/16/24 Rx folic acid 1 mg tablet 1 mg PO QAM #90 tabs 11/17/23 05/16/24 Rx benzonatate 200 mg capsule 200 mg PO TID PRN cough #30 caps 05/10/24 05/16/24 Rx prednisone 10 mg tablet See Rx Instructions PO DAILY #24 05/10/24 05/16/24 Rx tabs albuterol sulfate 90 mcg/actuation 2 puff inhalation QID PRN 05/16/24 05/16/24 History aerosol inhaler Shortness Of Breath Or Wheezing fluticasone fur. 100 mcg-umeclid 1 inh inhalation .EVERY 24 HOURS 05/16/24 05/16/24 History 62.5 mcg-vilant 25 mcg inhalat.powder (Trelegy Ellipta) insulin glargine 100 unit/mL (3 50 unit subcut QAM 05/16/24 05/16/24 History mL) subcutaneous pen (Basaglar KwikPen U-100 Insulin) metformin 1,000 mg tablet 1,000 mg PO BIDM 05/16/24 05/16/24 History methotrexate sodium 2.5 mg tablet 20 mg PO WK 05/16/24 05/16/24 History omeprazole 20 mg capsule,delayed 20 mg PO DAILYBB 05/16/24 05/16/24 History release rivaroxaban 20 mg tablet 20 mg PO QPM #30 tabs 05/16/24 05/16/24 Rx sertraline 100 mg tablet 100 mg PO QAM 05/16/24 05/16/24 History Allergies Allergy/AdvReac Type Severity Reaction Status Date / Time rosuvastatin AdvReac muscle Verified 05/16/24 10:02 aches Past Med/Surg History Problem List (Updated 05/16/24 @ 22:33 by Jr López MD) Left upper lobe pneumonia (Acute) Restrictive pattern present on pulmonary function testing Pulmonary emphysema Microalbuminuria due to type 2 diabetes mellitus History of DVT (deep vein thrombosis) multiple/most recent last yr Hypoxia (Acute) Rheumatoid arthritis Diabetes mellitus type 2, insulin dependent History of colon polyps Hypertension (Chronic) Lymphadenopathy (Chronic) Arthritis H/O splenectomy Secondary porphyria cutanea tarda (Chronic) Rheumatoid arthritis, seronegative, multiple sites (Chronic) Recurrent cellulitis of lower extremity (Chronic) Pulmonary nodule (Chronic) Mediastinal lymphadenopathy (Chronic) Lumbar radiculopathy (Chronic) Insomnia, persistent (Chronic) Hyperlipidemia (Chronic) LUIGI (generalized anxiety disorder) (Chronic) Erectile dysfunction (Chronic) Diabetic peripheral neuropathy (Chronic) DM2 (diabetes mellitus, type 2) (Chronic) COPD (chronic obstructive pulmonary disease) (Chronic) Anemia (Chronic) Statin myopathy (Acute) Hoarseness Polyp of vocal cord and larynx Abnormal CT scan of lung Abnormal PFT Medical History 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 hx x1 Black lung disease Diabetes mellitus Pancreatic cancer Neuroendocrine / dx 7 yr ago ...sx intervention Surgical History History of liver biopsy History of bronchoscopy History of endoscopy History of surgery FOR ABCESS S/P SX ( TOTAL OF 2 OR 3 PROCEDURES ) History of colonoscopy S/P cataract extraction bilateral History of dental surgery H/O resection of pancreas WITH REMOVAL OF SPLEEN Family History Unknown Diabetes Cardiac disorder Lung disease Cancer Hypertension Father Pancreatic cancer Diabetes Cancer Hypertension Brother Hypertension Mother Stroke Brain cancer Other Family history of colon cancer in father No family history of bleeding disorder No significant family history Denies family history of Ovarian cancer Prostate cancer Hearing loss Heart disease Myocardial infarction Breast cancer Colorectal cancer Asthma Social History Smoking Status: Former smoker Tobacco Type: Cigarettes Age Started Using Tobacco: 18; Age Quit Using Tobacco: 45; packs per day: 0; Second Hand Exposure: No; Hx Alcohol Use: Yes Alcohol type: beer Alcohol Intake Frequency: 4 or More x per/Week Hx Substance Use: No Preferred Language: Albanian Communication Ability: Effective Visual Impairment: No Limitations Hearing Ability: Normal Shoeshiner Required: No Beliefs That Will Affect Care: None marital status: Current Living Situation: Spouse Current Living Situation Comment: [facility] current occupational status: retired How many Children do You have: 2 Other Information That Helps Us Care for You: No Feels Safe at Home: Yes Safety Concerns: Feels Safe At This Time Childhood Exposure to Second-Hand Smoke: No Diet: regular Diet Comment: regular Dental Care, Regularly: No Physical Activity Frequency: 5-6 Times per Week Seatbelt Use: always Sunscreen Use: Yes Assistive Devices: Oxygen - Continuous Physical Exam 2 Vital Signs: Vital Signs - 24 hr 05/16/24 15:13 05/16/24 15:18 05/16/24 16:05 Temperature 37.1 C Temperature Source Oral Pulse Rate 107 H Pulse Rate from Sp O2 Sensor Respiratory Rate 22 Blood Pressure 151/91 H 168/103 H Blood Pressure Dianna n 111 128 Pulse Oximetry 89 L 94 Oxygen Delivery Me thod Room Air Nasal Cannula Oxygen Flow Rate 2 Sepsis Recent Feve r Within 48 Hours Yes Sepsis New/Unexpla ined Change in Men rachana Status N/A Sepsis Action Take n by Nursing Physician Notified 05/16/24 16:12 05/16/24 16:12 05/16/24 16:36 Temperature Temperature Source Pulse Rate 97 H 95 H 95 H Pulse Rate from Sp O2 Sensor 95 H 95 H Respiratory Rate 28 H 26 H Blood Pressure Blood Pressure Dianna n Pulse Oximetry 90 91 Oxygen Delivery Me thod Oxygen Flow Rate Sepsis Recent Feve r Within 48 Hours Sepsis New/Unexpla ined Change in Men rachana Status Sepsis Action Take n by Nursing 05/16/24 16:54 05/16/24 17:00 05/16/24 17:09 Temperature Temperature Source Pulse Rate 93 H 94 H Pulse Rate from Sp O2 Sensor 94 H 89 Respiratory Rate 25 H 26 H Blood Pressure 139/107 H Blood Pressure Dianna n 123 Pulse Oximetry 92 93 Oxygen Delivery Me thod Nasal Cannula Nasal Cannula Oxygen Flow Rate 2 2 Sepsis Recent Feve r Within 48 Hours Sepsis New/Unexpla ined Change in Men rachana Status Sepsis Action Take n by Nursing 05/16/24 17:42 Temperature Temperature Source Pulse Rate 99 H Pulse Rate from Sp O2 Sensor 98 H Respiratory Rate 30 H Blood Pressure Blood Pressure Dianna n Pulse Oximetry Oxygen Delivery Me thod Oxygen Flow Rate Sepsis Recent Feve r Within 48 Hours Sepsis New/Unexpla ined Change in Men rachana Status Sepsis Action Take n by Nursing Physical Exam: Physical Exam GENERAL: oriented to person, place, and time. appears well-developed and well- nourished. HENT: Exam performed. - Head: Normocephalic and atraumatic. EYES: Conjunctivae and EOM are normal. Right eye exhibits no discharge. Left eye exhibits no discharge. No scleral icterus. NECK: Normal range of motion. Neck supple. No JVD present. CV: Normal rate, regular rhythm, normal heart sounds and intact distal pulses. There is no peripheral edema. Palpable radial pulses bue. PULM/CHEST: Rhonchi bilaterally. ABD: The abdomen is soft. There is no tenderness. NEURO: Motor and sensation grossly intact. SKIN: Skin is warm and dry. He is not diaphoretic. PSYCH: normal mood and affect. Behavior is normal. Judgment and thought content normal. Course Course 155: The patient was evaluated in room C9. A complete history and physical exam was performed Cardiac monitoring: An order was placed for continuous cardiac monitoring. The monitor shows a rate of 90 with sinus rhythm interpreted by me 1640: Vital signs stable. Labs show white blood cell count of 29.7 hemoglobin 13.9 magnesium 1.4 lactic acid within normal limits. Imaging shows pneumonia. Patient is asplenic. Patient be treated with Rocephin and azithromycin. Patient will be admitted to the hospitalist team. Administered Medications Albuterol (Albut/Ipratrop 3mg/0.5mg Neb 3 Ml Vial) 3 ml NEB Q6R RIVAS; Protocol Stop: 06/15/24 18:59 Last Admin: 05/16/24 20:05 Dose: 3 ml Documented By: TELMA Benzonatate (Benzonatate 100 Mg Capsule) 200 mg PO TID PRN PRN Reason: cough Stop: 06/15/24 18:37 Last Admin: 05/16/24 20:31 Dose: 200 mg Documented By: VALENTINO Insulin Aspart (Insulin Aspart Per Unit Charge) 0 units SC ACHS [facility] Stop: 06/15/24 20:59 Last Admin: 05/16/24 21:24 Dose: 7 units Documented By: VALENTINO Co-signed By: ZORAN Discontinued Medications Azithromycin (Azithromycin 250 Mg Tab) 500 mg PO NOW ONE Stop: 05/16/24 16:16 Last Admin: 05/16/24 16:30 Dose: 500 mg Documented By: GILMA Ceftriaxone Sodium (Rocephin) 2,000 mg in 50 mls @ 100 mls/hr IV NOW STA Stop: 05/16/24 16:44 Last Infusion: 05/16/24 17:00 Dose: Infused Documented By: Admin: 05/16/24 16:31 Dose: 100 mls/hr Documented By: GILMA Magnesium Sulfate/Dextrose (Magnesium Sulfate / D5w) 1 gm in 100 mls @ 50 mls/hr IV Q2H RIVAS Stop: 05/16/24 21:29 Last Admin: 05/16/24 20:31 Dose: 50 mls/hr Documented By: Infusion: 05/16/24 20:23 Dose: Infused Documented By: Admin: 05/16/24 17:48 Dose: 50 mls/hr Documented By: GILMA Insulin Aspart (Insulin Aspart Per Unit Charge) 0 units SC NOW STA Stop: 05/16/24 18:56 Last Admin: 05/16/24 21:16 Dose: Not Given Documented By: VALENTINO Co-signed By: ZORAN Insulin Human Regular (Novolin-R Insulin Per Unit Charge) 8 units IV NOW STA Stop: 05/16/24 17:56 Last Admin: 05/16/24 18:03 Dose: 8 units Documented By: GILMA Co-signed By: ALONZO Methylprednisolone (Methylprednisolone 125 Mg/2 Ml Vial) 40 mg IV NOW STA Stop: 05/16/24 17:36 Last Admin: 05/16/24 17:48 Dose: 40 mg Documented By: GILMA Medical Decision Making Laboratory Data Attestation: I reviewed the patient's lab results. 05/16/24 15:37 05/16/24 15:37 Lab Results 05/16/24 05/16/24 05/16/24 Range/Units 15:37 16:09 17:28 WBC 29.70 H (4.8-10.8) K/ul RBC 4.55 L (4.70-6.10) M/uL Hgb 13.9 L (14.0-18.0) g/dl Hct 41.4 L (42.0-52.0) % MCV 91.0 (80.0-100.0) fL MCH 30.5 (25.0-34.0) pg MCHC 33.6 (32.0-36.0) g/dL RDW Std Deviation 51.0 H (36.4-46.3) fL RDW Coeff of Shira 15.8 H (11.5-14.5) % Plt Count 541 H (130-400) K/uL MPV 10.6 (9.4-12.4) fL Immature Gran % (Auto) 1.6 % Neut % (Auto) 85.4 % Lymph % (Auto) 6.4 % [place] % (Auto) 6.4 % Eos % (Auto) 0.0 % Baso % (Auto) 0.2 % Neut # (Auto) 25.34 H (1.40-6.50) K/uL Lymph # (Auto) 1.89 (1.20-3.40) K/uL [place] # (Auto) 1.91 H (0.11-0.59) K/uL Eos # (Auto) 0.00 (0.00-0.50) K/uL Baso # (Auto) 0.07 (0.00-0.20) K/uL Immature Gran # (Auto) 0.49 H (0.01-0.20) K/uL Absolute Nucleated RBC 0.02 (0.00-0.12) K/uL Nucleated RBC % (auto) 0.1 % Target Cells 1+ PT 11.4 (9.0-12.0) Seconds INR 1.1 (0.9-1.1) APTT 30 (21-31) Seconds PTT Ratio 1.1 Sodium 131 L (136-145) mmol/L Potassium 4.5 (3.5-5.1) mmol/L Chloride 97 L (98-107) mmol/L Carbon Dioxide 28 (21-32) mmol/L Anion Gap 6 (3-11) BUN 17 (6-23) mg/dl Creatinine 0.83 (0.6-1.4) mg/dl Est Cr Clr Drug Dosing 104.7 ml/min eGFR 96.53 BUN/Creatinine Ratio 20.5 H (10-20) Glucose 464 H* (70-99(Fasting)) mg/dl Lactate 1.9 (0.4-2.0) mmol/L Calcium 9.4 (8.6-10.3) mg/dl Magnesium 1.4 L (1.7-2.4) mg/dl Total Bilirubin 0.8 (0.2-1.0) mg/dl AST 14 (13-39) U/L ALT 19 (7-52) U/L Alkaline Phosphatase 120 H (34-104) U/L Troponin I High Sens 23.2 H 15.0 D (0-20) pg/ml Total Protein 7.2 (6.0-8.3) gm/dl Albumin 3.3 L (3.4-5.0) gm/dl Globulin 3.9 (2.5-4.0) gm/dl Albumin/Globulin Ratio 0.8 L (0.9-2) Procalcitonin 0.16 (0-0.5) ng/ml Urine Color Yellow Urine Appearance Clear (Clear) Urine pH 6.0 (4.5-7.5) Ur Specific [place] 1.031 H (1.000-1.030) Urine Protein 1+ H (Negative) Urine Glucose (UA) 3+ H (Negative) Urine Ketones Negative (Negative) Urine Blood Negative (Negative) Urine Nitrite Negative (Negative) Urine Bilirubin Negative (Negative) Urine Urobilinogen Negative (Negative) Ur Leukocyte Esterase Negative (Negative) Urine WBC (Auto) 0-5 (0-5) /hpf Urine RBC (Auto) 0-2 (0-2) /hpf U Hyaline Cast (Auto) 0-2 (0-2) /lpf U Epithel Cells (Auto) 0-2 (0-2) /hpf Urine Bacteria (Auto) None Seen (None Seen) Adenovirus (PCR) Not Detected (NotDetected) B. pertussis DNA (PCR) Not Detected (NotDetected) B.parapertussis DNA PCR Not Detected (NotDetected) C. pneumoniae DNA (PCR) Not Detected (NotDetected) Coronavirus OC43 (PCR) Not Detected (NotDetected) Coronavirus HKU1 (PCR) Not Detected (NotDetected) Coronavirus 229E (PCR) Not Detected (NotDetected) SARS-CoV-2 (PCR) Not Detected (NotDetected) Coronavirus NL63 (PCR) Not Detected (NotDetected) Human Metapneumovir PCR Not Detected (NotDetected) Influenza Type A (PCR) Not Detected (NotDetected) Influenza Type B (PCR) Not Detected (NotDetected) M. pneumoniae (PCR) Not Detected (NotDetected) Parainfluenza 1 (PCR) Not Detected (NotDetected) Parainfluenza 2 (PCR) Not Detected (NotDetected) Parainfluenza 3 (PCR) Not Detected (NotDetected) Parainfluenza 4 (PCR) Not Detected (NotDetected) RSV (PCR) Not Detected (NotDetected) Entero/Rhino (PCR) Not Detected (NotDetected) Imaging Data Attestation: I personally reviewed and interpreted this imaging study as follows: My Impression: Chest x-ray: Left-sided infiltrate Radiologist's Impression: Chest X-Ray 05/16/24 15:17 XR chest 1V not portable CLINICAL HISTORY: Sepsis COMPARISON STUDY: 05/10/2024 FINDINGS: Stable mild cardiomegaly without pulmonary vascular congestion. Stable mild diffuse pulmonary interstitial prominence. There is an interval small area of patchy opacity adjacent to the left upper hilum at the left upper lobe. No other consolidation or pleural effusion. No pneumothorax. IMPRESSION: Possible early pneumonia at the left upper lobe. ACT 112: Negative or not required by law. Electronically signed by: Mingo Patel M.D. 05/16/2024 4:02 PM ECG Data Attestation: I personally reviewed and interpreted this ECG as follows: Interpretation: Sinus rhythm with rate of 96. OH QRS and QTc intervals within normal limits. No ST elevation or ST depression. PVCs present. [facility] Narrative 1559: The patient was evaluated in room C9. A complete history and physical exam was performed Cardiac monitoring: An order was placed for continuous cardiac monitoring. The monitor shows a rate of 90 with sinus rhythm interpreted by al 1640: Vital signs stable. Labs show white blood cell count of 29.7 hemoglobin 13.9 magnesium 1.4 lactic acid within normal limits. Imaging shows pneumonia. Patient is asplenic. Patient be treated with Rocephin and azithromycin. Patient will be admitted to the hospitalist team. Impression & Plan Left upper lobe pneumonia Discharge Plan Visit Data Chief Complaint: Abnormal Labs/Diagnostic Testing Stated Complaint: CRITICAL LABS/DOC REF ED Provider: Jr López Discharge Problem: Left upper lobe pneumonia Patient Disposition: Admitted As Inpatient Discharge Instructions Interventions: ED Discharge Assessment Last Done: 05/16/24 18:38
[2024-05-16] MEDS: GABAPENTIN 800 MG TAB PO SCH (23:14)
[2024-05-16] MEDS: RIVAROXABAN 20 MG TAB PO SCH (23:14)
[2024-05-17 02:57] LABS: Hemoglobin 14.1 g/dl (14.0-18.0); Mean Corpuscular Hemoglobin 30.9 pg (25.0-34.0); Mean Corpuscular Hgb Conc 33.6 g/dL (32.0-36.0); Mean Corpuscular Volume 91.9 fL (80.0-100.0); Mean Platelet Volume 10.7 fL (9.4-12.4); Platelet Count 572 K/uL (130-400); RDW Coefficient of Variation 15.7 % (11.5-14.5); RDW Standard Deviation 51.6 fL (36.4-46.3); Red Blood Count 4.57 M/uL (4.70-6.10); White Blood Count 28.67 K/ul (4.8-10.8)
[2024-05-17 03:27] LABS: BUN Creatinine Ratio 23.8 (10-20); Calcium 9.1 mg/dl (8.6-10.3); Creatinine Clr Calc Pharmacy 108.6 ml/min; Magnesium 1.9 mg/dl (1.7-2.4); Potassium 4.7 mmol/L (3.5-5.1)
[2024-05-17 03:45] LABS: Basophils # (auto) 0.07 K/uL (0.00-0.20); Basophils % (auto) 0.2 %; Eosinophils # (auto) 0.01 K/uL (0.00-0.50); Immature Granulocytes # (auto) 0.63 K/uL (0.01-0.20); Immature Granulocytes % (auto) 2.2 %; Lymphocytes # (auto) 1.67 K/uL (1.20-3.40); Lymphocytes % (auto) 5.8 %; Monocytes # (auto) 1.57 K/uL (0.11-0.59); Monocytes % (auto) 5.5 %; Neutrophils # (auto) 24.72 K/uL (1.40-6.50); Neutrophils % (auto) 86.3 %
[2024-05-17] MEDS: PANTOprazole 40 MG TAB PO SCH (06:06)
[2024-05-17] MEDS ORDERED: LANTUS PER UNIT CHARGE SQ SCH ×2 (09:00)
[2024-05-17] MEDS ORDERED: methylPREDNISolone 125 MG/2 ML VIAL IV SCH (09:00)
[2024-05-17] MEDS: AZITHROMYCIN 250 MG TAB PO SCH (09:36)
[2024-05-17] MEDS: ASPIRIN 81 MG ECTAB PO SCH (09:36)
[2024-05-17] MEDS: FLUTICASONE FUROATE 100MCG 14 PUFFS/INHALER INH SCH (09:37)
[2024-05-17] MEDS: FOLIC ACID 1 MG TAB PO SCH (09:37)
[2024-05-17] MEDS: SERTRALINE HCL 100 MG TABLET PO SCH (09:38)
--- NOTE | 2024-05-17 09:49 | Pharmacy Report ---
Pharmacy Glycemic Short Note 2 - Date of Service May 17, 2024 - Glycemic Short BSG Results (Last 24 hours): 05/16/24 05/16/24 05/16/24 15:37 17:52 20:38 Glucose 464 H* POC Glucose 298 H 237 H 05/17/24 05/17/24 02:29 08:04 Glucose 349 H* POC Glucose 358 H* OUTPATIENT ANTIDIABETIC REGIMEN: * Lantus 50 units SQ qAM * Metformin 1000 mg PO BID * A1c = 9.5% (05/16/24) ASSESSMENT: * Elliot is a 68 yo T2DM who presented with complaints of low-grade fever, night sweats, SOB/dyspnea, and cough x 1 month. He reports being prescribed a five day course of Augmentin + doxycycline on 04/23 with initial symptom improvement followed by return of symptoms about one week after. Recent steroid taper. Patient given a dose of methylprednisone 40 mg IV in ED. * Severe hyperglycemia on presentation likely due to illness and use of steroids as an outpatient. Patient given a dose of methylprednisone 40 mg IV in ED, then ordered daily on admission. * Significant improvement with lunch BSG, 197 mg/dL. Based on previous admission data from earlier this year (patient on once daily IV steroid at that time as well), will significantly decrease insulin doses now that severe hyperglycemia has resolved. Patient required multiple dose reductions during that admission. PLAN FOR INPATIENT GLYCEMIC CONTROL: * Hold outpatient oral diabetes medications * Basal insulin * Lantus 40 units SQ x 1 this AM, then * Lantus 20-30 units SQ qAM (20 units for BSG 200 mg/dL or less) * Bolus insulin * NovoLog per scale ACHS or Q6hrs while NPO * Goal Range: Low 110 mg/dL - High 140 mg/dL * Correction Factor: 20 mg/dL/unit * Nutritional / Prandial insulin per carb ratio of 1 unit per 6 grams CHO consumed
[2024-05-17] MEDS: methylPREDNISolone 40 MG in SYRINGE 0 ML IV SCH (09:59)
[2024-05-17] MEDS: LANTUS PER UNIT CHARGE SQ SCH (10:01)
--- NOTE | 2024-05-17 16:08 | Hospitalist Progress Note ---
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 Symptoms started shortly after falling and breaking his ribs on the left side. He was placed on antibiotics on 04/23 (Augmentin and doxycycline x 5 days). He reports that his symptoms improved after completing the course of antibiotics, but then a week later, his symptoms started to return: Worsening productive cough, KEARNS (new for him), and night sweats. He also had a CXR done last week, and was placed on a steroid taper, which he has largely completed at time of admission; 1 pill remaining. Despite these treatments, he continues to feel that his symptoms are worsening. #VIVIANE Pneumonia/Acute on chronic hypoxic respiratory failure/COPD exacerbation- Failure of outpatient treatments.WBC count elevated at 29.70 on arrival but with chronic leukocytosis post splenectomy and on steroids; with fevers at home. Respiratory BioFire negative, CXR revealed possible early pneumonia in the left upper lobe, is requiring 4LNC and typically is only on 2LNC hs and no O2 during daytime. He was given IV mag on arrival for mag 1.4. Improving after starting IV steroids, ceftriaxone and azithromycin -continue ceftriaxone and azithro -collect sputum sample if possible and follow blood cxs-NGTD -consult PULM to see if thinks CT Chest would be helpful for evaluation of failure of therapy -continue incentive spirometry, flutter valve -continue DuoNeb 3 mL Q6R, maintenance inhalers (he has not been able to afford these as an outpt) -increase Methylprednisolone to 40 mg IV bid -follow CBC, BMP, mag #Rheumatoid arthritis-no acute issues -Hold methotrexate (with patient normally takes on Fridays) in the setting of acute infection #Leukocytosis/thrombocytosis/History of splenectomy-chronic, somewhat more elevated in setting of infection and recent steroid use. This is secondary to h/o splenectomy for h/o pancreatic neuroendocrine tumor #History of unprovoked DVT-Continue Xarelto daily #[id number] significant hyperglycemia on admission with BSG in 400s, Last A1c at 9.5% on 05/16/2024 -Hold metformin -Pharmacy glycemic management consult appreciated in the setting of high-dose steroids-on Lantus and Novolog -increase gabapentin back to home dose for neuropathy -continue ASA #Depression/anxiety-no acute issues -continue home sertraline #GERD-continue PPI DVT proph-Xarelto Dispo-continued stay on tele Admission and Anticipated Discharge Date Admission Date: May 16, 2024 Subjective Pt feeling a little better since admission, still with dry cough, on 4LNC. No headache or sinus pressure, no rhinorrhea, no abd pain or N/V/D. Tele with NSR Physical Exam Constitutional: WD/WN, vitals as above Respiratory: normal respiratory effort and + cough Auscultation: + crackles (at bases); no rhonchi and no wheezes Cardiovascular: RRR, no murmur, no edema Gastrointestinal (Abdomen): normal bowel sounds, soft, nontender, no hepatosplenomegaly Psychiatric: A+Ox3, euthymic affect Results & Data Results & Data Vital Signs (Past 12 Hours) Vital Signs Temp Pulse Resp BP Pulse Ox Pulse Ox O2 Del Method 05/17/24 13:55 95 05/17/24 13:39 101 H 20 93 Nasal Cannula 05/17/24 13:30 99 H 18 117/77 93 Nasal Cannula 05/17/24 08:56 113 H 22 98 Oxymask 05/17/24 07:30 36.9 C 97 H 18 125/81 98 Nasal Cannula 05/17/24 06:08 91 H 22 131/87 94 Nasal Cannula O2 Flow Rate O2 Flow Rate 05/17/24 13:55 2 05/17/24 13:39 3 05/17/24 13:30 2 05/17/24 08:56 5 05/17/24 07:30 2 05/17/24 06:08 3 Laboratory Results CBC, BMP, magnesium reviewed BCxs reviewed PG Care Time/CCT Total # of Minutes Spent Total Time Spent with Patient: Total time spent is greater than 50% in coordination of care (as documented) at patient's floor/unit and/or counseling patient: Coding Level of Care Code 14021 SUB INP/OBS CARE 2/35MIN Diagnoses Left upper lobe pneumonia J18.9 Hypoxia R09.02 COPD with acute exacerbation J44.1 Diabetes mellitus type 2, insulin dependent E11.9; Z79.4
[2024-05-17] MEDS: cefTRIAXone SODIUM 2,000 MG/50 ML BAG IV SCH (16:22)
--- NOTE | 2024-05-17 17:04 | Pulmonary Consultation ---
Date of Consultation May 17, 2024 Assessment & Plan (1) Pulmonary emphysema: (2) Restrictive pattern present on pulmonary function testing: (3) Acute on chronic respiratory failure with hypoxemia: (4) Abnormal chest CT: (5) COPD (chronic obstructive pulmonary disease): Plan CT chest 05/24/2023 personally reviewed: Centrilobular and paraseptal emphysema appreciated bilaterally minimal dependent atelectasis bilateral lower lobes Minimal mediastinal and hilar lymphadenopathy PFT 01/14/2024 personally reviewed: Mild to moderate restrictive lung dysfunction, no obstruction, moderate decrease in DLCO FVC 3.09 L 70%, FEV1 2.25 L 68%, FEV1/FVC 72%, TLC 78%, RV/TLC 913%, DLCO 61%, DLCO/VA 92% Chest x-ray 05/16/2024 personally reviewed: Portable film, good inspiratory effort, increased hilar markings appreciated bilaterally with some increase reticular marking Bilateral costophrenic and cardiophrenic angles are clean --Acute on chronic hypoxic respiratory failure Respiratory BioFire negative for everything on 05/16/2024 Procalcitonin 0.16 Patient does have extensive history of mediastinoscopy as well as bronchoscopies back in [address] Glaser as well as Dr. Chester. As per the previous records everything was negative for malignancy --COPD with emphysema Supposed to be on Trelegy 100 at home but unfortunately is not able to afford it Patient does not seem to be spastic, I think it is reasonable to DC Solu-Medrol --Abnormal chest CT Patient does seem to have some increased reticular markings in the periphery He does have history of rheumatoid arthritis and he is also on methotrexate both of which can cause ILD like picture PFT shows mild restrictive pattern with moderate decrease in DLCO --History of rheumatoid arthritis On methotrexate and folic acid --History of pulmonary emboli On Xarelto Plan: Follow-up autoimmune workup Okay to DC Solu-Medrol given the patient is not bronchospastic Given that the patient has splenectomy as well as immunosuppressed, I think it is reasonable for him to be on antibiotics, QTc [address] chest done 04/23/2024, we will try to get images pushed into our system Please note the above document was generated using voice recognition software. It may contain grammatical, syntax or spelling errors.Any formal questions or concerns about the content, text or information contained within the body of this dictation should be directly addressed to the provider for clarification. History of Present Illness Attending Physician: Ranjana Farley MD History of Present Illness 68-year-old male presented to the hospital for shortness of breath and cough for a month Past medical history: Rheumatoid arthritis, diabetes, hypertension, PE on Xarelto, history of splenectomy, rheumatoid arthritis on methotrexate Pulmonary consulted for the same Patient follows up with Dr. Rolon as well as Ernst Haq as an outpatient. Previous records and images personally reviewed Patient was in the room at the time of examination He was not in any respiratory distress. He was saturating 95 to 96% on 3 L nasal cannula He uses oxygen only at night when he sleeping. He says that he has been having issues with his breathing for the last couple of weeks. He did have a mechanical fall around first of this month and had some rib fractures on the left side He denies any fever or chills He does bring up phlegm which is mostly clear. No hemoptysis. No dysuria, no diarrhea Unfortunately he is not able to afford his inhalers and has not been using anything right now History of lupus in sister and niece Social history: Approximately [id number] smoking history, used to work in [employer] Allergies Allergy/AdvReac Type Severity Reaction Status Date / Time rosuvastatin AdvReac muscle Verified 05/16/24 10:02 aches Home Medications Medication Instructions Recorded Confirmed Type multivitamin (Daily Multi-Vitamin 1 tab PO QAM 10/05/18 05/16/24 History tablet) aspirin 81 mg tablet,delayed 81 mg PO QAM 11/13/18 05/16/24 History release (Adult Aspirin Regimen) pen needle, diabetic 32 gauge x #100 ea 01/16/23 05/16/24 Rx 5/32" (BD Marely 2nd Gen Pen Needle) Oxygen Home #1 ea 06/09/23 05/16/24 Rx gabapentin 800 mg tablet 800 mg PO TID 90 days #270 tabs 11/12/23 05/16/24 Rx folic acid 1 mg tablet 1 mg PO QAM #90 tabs 11/17/23 05/16/24 Rx benzonatate 200 mg capsule 200 mg PO TID PRN cough #30 caps 05/10/24 05/16/24 Rx prednisone 10 mg tablet See Rx Instructions PO DAILY #24 25 05/16/24 Rx tabs albuterol sulfate 90 mcg/actuation 2 puff inhalation QID PRN 05/16/24 05/16/24 History aerosol inhaler Shortness Of Breath Or Wheezing fluticasone fur. 100 mcg-umeclid 1 inh inhalation .EVERY 24 HOURS 05/16/24 05/16/24 History 62.5 mcg-vilant 25 mcg inhalat.powder (Trelegy Ellipta) insulin glargine 100 unit/mL (3 50 unit subcut QAM 05/16/24 05/16/24 History mL) subcutaneous pen (Basaglar KwikPen U-100 Insulin) metformin 1,000 mg tablet 1,000 mg PO BIDM 05/16/24 05/16/24 History methotrexate sodium 2.5 mg tablet 20 mg PO WK 05/16/24 05/16/24 History omeprazole 20 mg capsule,delayed 20 mg PO DAILYBB 05/16/24 05/16/24 History release rivaroxaban 20 mg tablet 20 mg PO QPM #30 tabs 05/16/24 05/16/24 Rx sertraline 100 mg tablet 100 mg PO QAM 05/16/24 05/16/24 History Patient History Medical History 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 hx x1 Black lung disease Diabetes mellitus Pancreatic cancer Neuroendocrine / dx 7 yr ago ...sx intervention Surgical History History of liver biopsy History of bronchoscopy History of endoscopy History of surgery FOR ABCESS S/P SX ( TOTAL OF 2 OR 3 PROCEDURES ) History of colonoscopy S/P cataract extraction bilateral History of dental surgery H/O resection of pancreas WITH REMOVAL OF SPLEEN Family History Unknown Diabetes Cardiac disorder Lung disease Cancer Hypertension Father Pancreatic cancer Diabetes Cancer Hypertension Brother Hypertension Mother Stroke Brain cancer Other Family history of colon cancer in father No family history of bleeding disorder No significant family history Denies family history of Ovarian cancer Prostate cancer Hearing loss Heart disease Myocardial infarction Breast cancer Colorectal cancer Asthma Social History Smoking Status: Former smoker Tobacco Type: Cigarettes Age Started Using Tobacco: 18; Age Quit Using Tobacco: 45; packs per day: 0; Second Hand Exposure: No; Hx Alcohol Use: Yes Alcohol type: beer Alcohol Intake Frequency: 4 or More x per/Week Hx Substance Use: No Preferred Language: Korean Communication Ability: Effective Visual Impairment: No Limitations Hearing Ability: Normal Airport Ramp Attendant Required: No Beliefs That Will Affect Care: None marital status: Current Living Situation: Spouse Current Living Situation Comment: [facility] current occupational status: retired How many Children do You have: 2 Other Information That Helps Us Care for You: No Feels Safe at Home: Yes Safety Concerns: Feels Safe At This Time Childhood Exposure to Second-Hand Smoke: No Diet: regular Diet Comment: regular Dental Care, Regularly: No Physical Activity Frequency: 5-6 Times per Week Seatbelt Use: always Sunscreen Use: Yes Assistive Devices: Oxygen - Continuous Review of Systems 2 Review of Systems: All systems reviewed & are unremarkable except as noted in HPI & below Physical Exam 2 Physical Exam: Constitutional: No acute distress HEENT: EOMI, PERRLA Respiratory system: No wheeze, no rhonchi, positive crackles bilateral lower lobes, [id number] CVS: S1-S2 positive, no murmurs or gallops Abdomen: Soft, nontender, nondistended, positive bowel sounds x4 Extremities: +2 pulses bilaterally radialis/ dorsalis pedis, no cyanosis, minimal pitting edema bilateral lower extremity Neuro: Awake alert oriented x3 Psych: Normal mood and affect G/U: No Beebe Skin: no rashes, warm and dry Lymphatic: no cervical or axillary lymphadenopathy Results & Data Results & Data Vital Signs (Past 12 Hours) Vital Signs Temp Pulse Resp BP Pulse Ox Pulse Ox O2 Del Method 05/17/24 13:55 95 05/17/24 13:39 101 H 20 93 Nasal Cannula 05/17/24 13:30 99 H 18 117/77 93 Nasal Cannula 05/17/24 08:56 113 H 22 98 Oxymask 05/17/24 07:30 36.9 C 97 H 18 125/81 98 Nasal Cannula 05/17/24 06:08 91 H 22 131/87 94 Nasal Cannula O2 Flow Rate O2 Flow Rate 05/17/24 13:55 2 05/17/24 13:39 3 05/17/24 13:30 2 05/17/24 08:56 5 05/17/24 07:30 2 05/17/24 06:08 3 Laboratory Results 05/17/24 02:29 05/17/24 02:29 PG Care Time/CCT Total # of Minutes Spent Total Time Spent with Patient: Total time spent is greater than 50% in coordination of care (as documented) at patient's floor/unit and/or counseling patient: Coding Level of Care Code 78610 INT INP/OBS CARE 375MIN Diagnoses Pulmonary emphysema J43.9 Restrictive pattern present on pulmonary function testing R94.2 Acute on chronic respiratory failure with hypoxemia J96.[address] R93.89 COPD (chronic obstructive pulmonary disease) J44.9
[2024-05-17] MEDS ORDERED: methylPREDNISolone 40 MG in SYRINGE 0 ML IV SCH (21:00)
[2024-05-17] MEDS: GABAPENTIN 800 MG TAB PO SCH (21:02)
[2024-05-18] MEDS: INSULIN ASPART PER UNIT CHARGE SC SCH (00:10)
[2024-05-18] MEDS ORDERED: 0.2 MICRON FILTER SET 1 EACH IV STA (01:11)
[2024-05-18] MEDS ORDERED: 0.2 MICRON FILTER SET 1 EACH IV ONE ×2 (01:11→03:38)
[2024-05-18] MEDS ORDERED: STAT IV Infusion **Titration per Protocol STA (01:11)
[2024-05-18] MEDS: AMIODARONE / D5W 360 MG/200 ML BAG IV ONE (01:25)
[2024-05-18] MEDS: SODIUM CHLORIDE 0.9% 1,000 ML IV ONE (01:32)
[2024-05-18] MEDS: MAGNESIUM SULFATE / D5W 1 GM/100 ML BAG IV SCH (01:33)
[2024-05-18] MEDS: ADENOSINE IV SOLN 3 MG/ML 2 ML VIAL IV ONE (01:33)
[2024-05-18] MEDS: ADENOSINE IV SOLN 3 MG/ML 2 ML VIAL IV STA ×2 (01:34→01:48)
[2024-05-18] MEDS: AMIODARONE / D5W 150 MG/100 ML BAG IV STA ×3 (01:36→03:58)
[2024-05-18] MEDS: AMIODARONE 150MG / 100ML D5W IV ONE (01:40)
[2024-05-18] MEDS: AMIODARONE IV BOLUS & DRIP IV STA (01:40)
[2024-05-18] MEDS: AMIODARONE 360MG / 200ML D5W IV ONE (01:40)
[2024-05-18] MEDS: CALCIUM GLUCONATE 1,000 MG/60 ML BAG IV STA (02:21)
[2024-05-18] MEDS: METOPROLOL TARTRATE 1 MG/ML VIAL IV PRN (03:48)
[2024-05-18] MEDS: METOPROLOL TARTRATE 1 MG/ML VIAL IV ONE (04:01)
--- NOTE | 2024-05-18 05:11 | Communication Note ---
Date of Service: May 18, 2024 Alerted by nursing that patient converted to tachycardic rhythm while sleeping that appeared SVT on monitor. EKG was obtained and confirmed this rhythm in 180s. Code purple activated in order to give push medications. Given adenosine 6mg followed by 12mg without conversion. Given 1L NSS bolus, 2g MgSO4, 1g calcium gluconate. Started on amiodarone 150mg bolus followed by drip. Additional 150mg amiodarone bolus given. HR improved to 130s-140s. Rate later increased to 180s again. Given additional 150mg amiodarone bolus as well as Lopressor 5mg IV push x3. Rate decreased to around 120s and no longer appeared regular. 12 lead again obtained and showed afib with RVR. Patient is anticoagulated on Xarelto. Pt remained asymptomatic throughout the morning and maintained BP. Cardiology consult placed. Resident Activity Tracking Resident Involvement: Resident Care Provided Care Provided: Adult Hospital Medicine
[2024-05-18] MEDS: AMIODARONE / D5W 360 MG/200 ML BAG IV SCH (06:42)
[2024-05-18] MEDS: BUDESONIDE 0.25 MG/2 ML VIAL (PULMICORT) NEB SCH (07:24)
[2024-05-18] MEDS: FORMOTEROL 20 MCG/2 ML VIAL NEB SCH (07:24)
[2024-05-18 08:03] LABS: Basophils # (auto) 0.08 K/uL (0.00-0.20); Basophils % (auto) 0.3 %; Eosinophils # (auto) 0.18 K/uL (0.00-0.50); Eosinophils % (auto) 0.7 %; Hematocrit (blood only) 40.3 % (42.0-52.0); Hemoglobin 13.7 g/dl (14.0-18.0); Immature Granulocytes # (auto) 0.55 K/uL (0.01-0.20); Immature Granulocytes % (auto) 2.1 %; Lymphocytes % (auto) 16.8 %; Mean Corpuscular Volume 91.2 fL (80.0-100.0); Mean Platelet Volume 10.7 fL (9.4-12.4); Monocytes # (auto) 1.88 K/uL (0.11-0.59); Neutrophils # (auto) 19.58 K/uL (1.40-6.50); Neutrophils % (auto) 73.1 %; Nucleated RBC # (auto) 0.03 K/uL (0.00-0.12); Nucleated RBC % (auto) 0.1 %; Platelet Count 610 K/uL (130-400); RDW Coefficient of Variation 15.9 % (11.5-14.5); RDW Standard Deviation 51.6 fL (36.4-46.3); Red Blood Count 4.42 M/uL (4.70-6.10); White Blood Count 26.77 K/ul (4.8-10.8)
[2024-05-18] MEDS: UMECLIDINIUM BROMIDE 62.5MCG/BLISTER 7 PUFFS/INHALER INH SCH (08:10)
[2024-05-18] MEDS: LANTUS PER UNIT CHARGE SQ SCH (08:16)
[2024-05-18] MEDS: DOXYCYCLINE HYCLATE 100 MG CAP PO SCH (08:29)
[2024-05-18 08:34] LABS: BUN Creatinine Ratio 32.9 (10-20); Calcium 8.5 mg/dl (8.6-10.3); Magnesium 1.9 mg/dl (1.7-2.4); Potassium 4.1 mmol/L (3.5-5.1)
[2024-05-18] MEDS: METOPROLOL TARTRATE 25 MG TAB PO SCH (10:31)
[2024-05-18] MEDS: MAGNESIUM SULFATE / D5W 1 GM/100 ML BAG IV ONE (11:15)
--- NOTE | 2024-05-18 11:42 | Pharmacy Report ---
Pharmacy Glycemic Short Note 2 - Date of Service May 18, 2024 - Glycemic Short BSG Results (Last 24 hours): 05/17/24 05/17/24 05/17/24 12:15 17:45 21:00 Glucose POC Glucose 197 H 233 H 366 H* 05/17/24 05/18/24 05/18/24 21:01 00:08 00:57 Glucose POC Glucose 376 H* 136 H 116 H 05/18/24 05/18/24 05/18/24 03:22 07:19 07:23 Glucose 130 H POC Glucose 175 H 144 H 05/18/24 11:24 Glucose POC Glucose 117 H OUTPATIENT ANTIDIABETIC REGIMEN: * Lantus 50 units SQ qAM * Metformin 1000 mg PO BID * A1c = 9.5% (05/16/24) ASSESSMENT: 05/18 * Pt received 117 units of insulin yesterday * 40 glargine * 77 aspart * BSGs above goal range last night, had tightened CF/CR to 15/4, but BSGs came down quickly from AM to lunch so loosened CR back to 6 to err on side of caution. * T2DM diet ordered 05/17 * Elliot is a 68 yo T2DM who presented with complaints of low-grade fever, night sweats, SOB/dyspnea, and cough x 1 month. He reports being prescribed a five day course of Augmentin + doxycycline on 04/23 with initial symptom improvement followed by return of symptoms about one week after. Recent steroid taper. Patient given a dose of methylprednisone 40 mg IV in ED. * Severe hyperglycemia on presentation likely due to illness and use of steroids as an outpatient. Patient given a dose of methylprednisone 40 mg IV in ED, then ordered daily on admission. * Significant improvement with lunch BSG, 197 mg/dL. Based on previous admission data from earlier this year (patient on once daily IV steroid at that time as well), will significantly decrease insulin doses now that severe hyperglycemia has resolved. Patient required multiple dose reductions during that admission. PLAN FOR INPATIENT GLYCEMIC CONTROL: * Hold outpatient oral diabetes medications * Basal insulin * Lantus 20-30 units SQ qAM (20 units for BSG 200 mg/dL or less) * Bolus insulin * NovoLog per scale ACHS or Q6hrs while NPO * Goal Range: Low 110 mg/dL - High 140 mg/dL * Correction Factor: 15 mg/dL/unit * Nutritional / Prandial insulin per carb ratio of 1 unit per 6 grams CHO consumed
--- NOTE | 2024-05-18 11:48 | Pulmonology Progress Note ---
Date of Service May 18, 2024 Assessment & Plan (1) Pulmonary emphysema: (2) Restrictive pattern present on pulmonary function testing: (3) Acute on chronic respiratory failure with hypoxemia: (4) Abnormal chest CT: (5) COPD (chronic obstructive pulmonary disease): Plan CT chest 05/24/2023 personally reviewed: Centrilobular and paraseptal emphysema appreciated bilaterally minimal dependent atelectasis bilateral lower lobes Minimal mediastinal and hilar lymphadenopathy PFT 01/14/2024 personally reviewed: Mild to moderate restrictive lung dysfunction, no obstruction, moderate decrease in DLCO FVC 3.09 L 70%, FEV1 2.25 L 68%, FEV1/FVC 72%, TLC 78%, RV/TLC 913%, DLCO 61%, DLCO/VA 92% Chest x-ray 05/16/2024 personally reviewed: Portable film, good inspiratory effort, increased hilar markings appreciated bilaterally with some increase reticular marking Bilateral costophrenic and cardiophrenic angles are clean --Acute on chronic hypoxic respiratory failure Respiratory BioFire negative for everything on 05/16/2024 Procalcitonin 0.16 Patient does have extensive history of mediastinoscopy as well as bronchoscopies back in 2017 [address] Glaser as well as Dr. Chester. As per the previous records everything was negative for malignancy --COPD with emphysema Supposed to be on Trelegy 100 at home but unfortunately is not able to afford it Patient does not seem to be spastic, I think it is reasonable to DC Solu-Medrol --Abnormal chest CT Patient does seem to have some increased reticular markings in the periphery He does have history of rheumatoid arthritis and he is also on methotrexate both of which can cause ILD like picture PFT shows mild restrictive pattern with moderate decrease in DLCO --History of rheumatoid arthritis On methotrexate and folic acid --History of pulmonary emboli with new onset A-fib On Xarelto --CEDRICK Noncompliant with CPAP Admission and Anticipated Discharge Date Admission Date: May 16, 2024 Supervising Physician Co-Signing Physician Notes I saw and evaluated the patient with Ernst Haq PA-C, and agree with findings and plan as documented in the note. Patient seen and examined at bedside. No acute distress. He did go into A-fib RVR earlier in the morning for which she was given adenosine. Patient's was also in the room at the time of examination He says he is feeling the same when it comes to his breathing but he is off oxygen and saturating 95-96% on room air Coughing up clear phlegm. No hemoptysis Constitutional: No acute distress HEENT: EOMI, PERRLA Respiratory system: No wheeze, no rhonchi, positive crackles bilateral lower lobes as well as left side anteriorly, questionable Velcro CVS: S1-S2 positive, no murmurs or gallops Abdomen: Soft, nontender, nondistended, positive bowel sounds x4 Extremities: +2 pulses bilaterally radialis/ dorsalis pedis, no cyanosis, minimal pitting edema bilateral lower extremity Neuro: Awake alert oriented x3 Psych: Normal mood and affect G/U: No Beebe Plan: Follow-up autoimmune workup. Given that the patient has splenectomy as well as immunosuppressed, I think it is reasonable for him to be on antibiotics, QTc 409 Images from outside chest CT reviewed. Exam consistent with findings of prior study, no significant worsening compared to CT chest 06/13. Patient would likely benefit from HRCT as previously ordered in the outpatient setting. That exam is scheduled for next month (05/30/2024 @1220). He is also scheduled to see Ernst Haq PA-C on 06/07/2024 @ 0900. Given his improvement on antibiotics, would complete course as well as continue with pulmonary toileting for now. He does have a history of CEDRICK but he is noncompliant with CPAP. There is also one of the factors while he got A-fib. Will need better control of the heart rate. Cardiology has been consulted Continue with nebulized bronchodilators, would recommend discharging on nebulized budesonide as well as Perforomist or Brovana as other inhalers are expensive for him to get. Addition of revefenacin could be thought of when he follows up with Ernst Haq in the outpatient setting Please note the above document was generated using voice recognition software. It may contain grammatical, syntax or spelling errors.Any formal questions or concerns about the content, text or information contained within the body of this dictation should be directly addressed to the provider for clarification. Subjective Patient seen and evaluated at bedside. He feels slightly better today. He does have a cough which is minimally productive of sputum. He does feel somewhat better with increasing removal secretions. He is no chest pain or palpitations. No hemoptysis. He is saturating well on room air at this time. Review of Systems 2 Review of Systems: As per subjective. Physical Exam 2 Physical Exam: VITAL SIGNS Vital signs and nursing notes were reviewed. GENERAL 68-year-old male appearing his stated age who is in no acute distress. Communicates well with provider and answers questions appropriately. LUNGS Chest wall evaluation demonstrates a normal chest wall A:P diameter. Auscultation reveals bibasilar rales. CARDIAC RRR with S1/S2. No murmur, rubs, or gallops appreciated. ABDOMEN Abdominal inspection demonstrates an obese abdomen. BS normoactive all four quadrants. No tenderness, palpable masses, or ascites noted. PSYCH A&Ox3 and cooperates fully with examiner. Pt is very pleasant and interacts well with examiner. Skin: no rashes, warm and dry Lymphatic: no cervical or axillary lymphadenopathy Results & Data Results & Data Vital Signs (Past 12 Hours) Vital Signs Temp Pulse Pulse Resp BP BP Pulse Ox 05/18/24 08:50 89 114/75 05/18/24 08:28 146 H 138/74 05/18/24 08:22 95 H 18 92 05/18/24 08:00 36.8 C 129 H 16 138/74 96 05/18/24 07:24 05/18/24 05:02 113 H 120/83 05/18/24 04:35 122 H 115/83 05/18/24 04:31 122 H 115/83 05/18/24 04:09 143 H 112/88 05/18/24 04:05 143 H 112/88 05/18/24 03:48 158 H 129/86 05/18/24 03:19 36.7 C 128 H 18 129/86 97 05/18/24 02:00 05/18/24 01:38 36.7 C 141 H 20 129/88 91 05/18/24 01:28 171 H 05/18/24 00:54 36.4 C L 154 H 22 117/74 96 05/18/24 00:21 88 15 97 O2 Del Method O2 Flow Rate 05/18/24 08:50 05/18/24 08:28 05/18/24 08:22 Nasal Cannula 3 05/18/24 08:00 Nasal Cannula 3 05/18/24 07:24 Nasal Cannula 2 05/18/24 05:02 05/18/24 04:35 05/18/24 04:31 05/18/24 04:09 05/18/24 04:05 05/18/24 03:48 05/18/24 03:19 Nasal Cannula 3.0 05/18/24 02:00 Nasal Cannula 3 05/18/24 01:38 Nasal Cannula 4 05/18/24 01:28 05/18/24 00:54 Nasal Cannula 4 05/18/24 00:21 Nasal Cannula 3 Laboratory Results 05/18/24 07:19 05/18/24 07:19 PG Care Time/CCT Total # of Minutes Spent Total Time Spent with Patient: Total time spent is greater than 50% in coordination of care (as documented) at patient's floor/unit and/or counseling patient: Coding Level of Care Code 76937 SUB INP/OBS CARE 3/50MIN Diagnoses Pulmonary emphysema J43.9 Restrictive pattern present on pulmonary function testing R94.2 Acute on chronic respiratory failure with hypoxemia J96.[address] R93.89 COPD (chronic obstructive pulmonary disease) J44.9
--- NOTE | 2024-05-18 12:31 | Hospitalist Progress Note ---
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 Symptoms started shortly after falling and breaking his ribs on the left side. He was placed on antibiotics on 04/23 (Augmentin and doxycycline x 5 days). He reports that his symptoms improved after completing the course of antibiotics, but then a week later, his symptoms started to return: Worsening productive cough, KEARNS (new for him), and night sweats. He also had a CXR done last week, and was placed on a steroid taper, which he has largely completed at time of admission. Despite these treatments, he continued to feel that his symptoms are worsening. He was admitted with a cute on chronic hypoxic respiratory failure, COPD exacerbation, and left upper lobe pneumonia. #Sepsis POA due to VIVIANE pneumonia/acute on chronic hypoxic respiratory failure/COPD exacerbation-Failure of outpatient treatments.WBC count elevated at 29.70 on arrival but with chronic leukocytosis post splenectomy and on steroids; with fevers at home. Respiratory BioFire negative, CXR revealed possible early pneumonia in the left upper lobe, is requiring 4LNC and typically is only on 2LNC hs and no O2 during daytime. He was given IV mag on arrival for mag 1.4. Improving after starting IV steroids, ceftriaxone and azithromycin. He is now weaned to room air -continue ceftriaxone and switch azithromycin to doxycycline given cardiac arrhythmia issues although QT is not prolonged -collect sputum sample if possible and follow blood cxs-NGTD -consult PULM appreciated-discontinued steroids and agreed with antibiotics given immune suppression with history of splenectomy -continue incentive spirometry, flutter valve -continue DuoNeb 3 mL Q6R, maintenance inhalers (he has not been able to afford these as an outpt) -follow CBC, BMP, mag #Paroxysmal atrial [id number] into rapid A-fib with rates as high as the 200s on the night of 05/17 into 05/18. Given multiple boluses of IV amiodarone and IV Lopressor. Converted to normal sinus rhythm spontaneously on the morning of 05/18 after about 10 hours. He is already on Xarelto for history of DVT. Seen by cardiology. Echocardiogram performed which did show moderate to severe LV dysfunction but was thought to be low due to tachycardia during the echo. Cardiology recommends discontinuing amiodarone -Start metoprolol 25 Mg p.o. twice daily -Check limited echo for EF again tomorrow now that he is in sinus rhythm -Continue telemetry monitoring -Keep electrolytes replete-give IV magnesium 1 g -Follow BMP, magnesium in the morning -Rheumatoid factor, BOBBY, anti-CCP, DARCIE level pending as ordered by pulmonology #Rheumatoid arthritis-no acute issues -Hold methotrexate (with patient normally takes on Fridays) in the setting of a cute infection #Leukocytosis/thrombocytosis/History of splenectomy-chronic, somewhat more elevated in setting of infection and recent steroid use. This is secondary to h/o splenectomy for h/o pancreatic neuroendocrine tumor -Follow CBC #History of unprovoked DVT-Continue Xarelto daily #[id number] significant hyperglycemia on admission with BSG in 400s, Last A1c at 9.5% on 05/16/2024. Improving today with increased insulin -Continue to hold metformin -Pharmacy glycemic management consult appreciated in the setting of high-dose steroids-on Lantus and Novolog Continue gabapentin home dose for neuropathy -continue ASA #Depression/anxiety-no acute issues -continue home sertraline #GERD-continue PPI DVT proph-Xarelto Dispo-continued stay on tele Admission and Anticipated Discharge Date Admission Date: May 16, 2024 Subjective Patient had rapid atrial fibrillation with rates to the 200s overnight and was given IV amiodarone boluses and IV Lopressor. He converted to regular rhythm this morning. He did not feel any palpitations or chest pain or shortness of breath. In fact he is weaned off oxygen and feeling better overall. I discussed his care with cardiology Physical Exam Constitutional: WD/WN, vitals as above Respiratory: normal respiratory effort; no cough Auscultation: + crackles (at bases); no rhonchi and no wheezes Cardiovascular: RRR, no murmur, no edema Gastrointestinal (Abdomen): normal bowel sounds, soft, nontender, no hepatosplenomegaly Psychiatric: A+Ox3, euthymic affect Results & Data Results & Data Vital Signs (Past 12 Hours) Vital Signs Temp Pulse Pulse Resp BP BP Pulse Ox 05/18/24 08:50 89 114/75 05/18/24 08:28 146 H 138/74 05/18/24 08:22 95 H 18 92 05/18/24 08:00 130 H 05/18/24 08:00 05/18/24 08:00 36.8 C 129 H 16 138/74 96 05/18/24 07:24 05/18/24 05:02 113 H 120/83 05/18/24 04:35 122 H 115/83 05/18/24 04:31 122 H 115/83 05/18/24 04:09 143 H 112/88 05/18/24 04:05 143 H 112/88 05/18/24 03:48 158 H 129/86 05/18/24 03:19 36.7 C 128 H 18 129/86 97 05/18/24 02:00 05/18/24 01:38 36.7 C 141 H 20 129/88 91 05/18/24 01:28 171 H 05/18/24 00:54 36.4 C L 154 H 22 117/74 96 O2 Del Method O2 Flow Rate 05/18/24 08:50 05/18/24 08:28 05/18/24 08:22 Nasal Cannula 3 05/18/24 08:00 05/18/24 08:00 Nasal Cannula 2 05/18/24 08:00 Nasal Cannula 3 05/18/24 07:24 Nasal Cannula 2 05/18/24 05:02 05/18/24 04:35 05/18/24 04:31 05/18/24 04:09 05/18/24 04:05 05/18/24 03:48 05/18/24 03:19 Nasal Cannula 3.0 05/18/24 02:00 Nasal Cannula 3 05/18/24 01:38 Nasal Cannula 4 05/18/24 01:28 05/18/24 00:54 Nasal Cannula 4 Laboratory Results CBC, BMP, magnesium reviewed ECG Additional Comments: ECG reviewed from 05/18/2024 which shows atrial fibrillation PG Care Time/CCT Total # of Minutes Spent Total Time Spent with Patient: Total time spent is greater than 50% in coordination of care (as documented) at patient's floor/unit and/or counseling patient: Coding Level of Care Code 32303 SUB INP/OBS CARE MIN Diagnoses Left upper lobe pneumonia J18.9 Paroxysmal atrial fibrillation I48.0 Hypoxia R09.02 COPD with acute exacerbation J44.1 Diabetes mellitus type 2, insulin dependent E11.9; Z79.4
--- NOTE | 2024-05-18 16:38 | XCELERA ---
[id number] \\ISCV-PHAN\ISCV_PDF_Reports\[id number]}___[id number]
--- NOTE | 2024-05-18 17:04 | Cardiology Consultation ---
Date of Consultation May 18, 2024 Assessment & Plan (1) Paroxysmal atrial fibrillation: 2. Moderate to severe LV dysfunction while in AF 3. Acute hypoxic respiratory failure, emphysema, restrictive lung disease 4. History of VTE on long-term Xarelto 5. Type 2 diabetes 6. Hypertension 7. Rheumatoid arthritison methotrexate 8. History of splenectomy Seen today in the setting of newly diagnosed atrial fibrillation with RVR. Asymptomatic with heart rates to the 160s. Has since converted to sinus rhythm on amiodarone. Echo today shows moderate to severe LV dysfunction. No signs of significant valvular heart disease. On exam today no signs of heart failure. Patient high risk for AF with his long-term lung disease, dilated left atrium. Suspect AF precipitated by acute illness, steroids. Suspect LV dysfunction looks much worse than it actually is due to images obtained while in AF with RVR. Will need to repeat echo now that in sinus rhythm. Going forward favor initial trial of rate control and agree with beta-dar. [id number] 3. Already on long-term anticoagulation with Xarelto. Plan: Repeat echo tomorrow while in sinus rhythm. Will consider additional cardiomyopathy workup, GDMT if LV dysfunction persists Continue current metoprolol 25 mg twice daily Can discontinue amiodarone infusion Continue anticoagulation with Xarelto Will follow History of Present Illness Attending Physician: Ranjana Farley MD History of Present Illness Mr. Tony is a very pleasant 68-year-old man with emphysema admitted with acute respiratory failure NSTEMI cardiology today in the setting of new atrial fibrillation with RVR. Other medical history includes rheumatoid arthritis on methotrexate, type 2 diabetes, prior unprovoked VTE on long-term Xarelto, hypertension, history of splenectomy and pancreatic cancer 10 years ago post resection. Admitted 05/16 with gradual progressive exertional dyspnea over the last month. No improvement with outpatient antibiotics, steroid taper. Treated for possible left upper lobe pneumonia, COPD exacerbation with improvement. Also being evaluated for pulmonary for restrictive lung disease on PFTs and abnormal prior chest CT. Last night around midnight went into new A-fib with RVR with heart rates as high as 160s. Given adenosine x 2 before started on amiodarone infusion. Converted back to sinus rhythm this morning after more than 10 hours. With A-fib patient asymptomatic. He denies any prior history of palpitations, presyncope, chest pain. No other significant cardiac history. Reports only a remote stress test. HS TropI presentation 9.5 up to 23. BNP 144. Echo today obtained while in AF with RVR showed moderate to severe global LV dysfunction with EF of 30 to 35%, trace MR, borderline dilated left atrium. Allergies Allergy/AdvReac Type Severity Reaction Status Date / Time rosuvastatin AdvReac muscle Verified 05/16/24 10:02 aches Home Medications Medication Instructions Recorded Confirmed Type multivitamin (Daily Multi-Vitamin 1 tab PO QAM 10/05/18 05/16/24 History tablet) aspirin 81 mg tablet,delayed 81 mg PO QAM 11/13/18 05/16/24 History release (Adult Aspirin Regimen) pen needle, diabetic 32 gauge x #100 ea 01/16/23 05/16/24 Rx 5/32" (BD Marely 2nd Gen Pen Needle) Oxygen Home #1 ea 06/09/23 05/16/24 Rx gabapentin 800 mg tablet 800 mg PO TID 90 days #270 tabs 11/12/23 05/16/24 Rx folic acid 1 mg tablet 1 mg PO QAM #90 tabs 11/17/23 05/16/24 Rx benzonatate 200 mg capsule 200 mg PO TID PRN cough #30 caps 05/10/24 05/16/24 Rx prednisone 10 mg tablet See Rx Instructions PO DAILY #24 05/10/24 05/16/24 Rx tabs albuterol sulfate 90 mcg/actuation 2 puff inhalation QID PRN 05/16/24 05/16/24 History aerosol inhaler Shortness Of Breath Or Wheezing fluticasone fur. 100 mcg-umeclid 1 inh inhalation .EVERY 24 HOURS 05/16/24 05/16/24 History 62.5 mcg-vilant 25 mcg inhalat.powder (Trelegy Ellipta) insulin glargine 100 unit/mL (3 50 unit subcut QAM 05/16/24 05/16/24 History mL) subcutaneous pen (Basaglar KwikPen U-100 Insulin) metformin 1,000 mg tablet 1,000 mg PO BIDM 05/16/24 05/16/24 History methotrexate sodium 2.5 mg tablet 20 mg PO WK 05/16/24 05/16/24 History omeprazole 20 mg capsule,delayed 20 mg PO DAILYBB 05/16/24 05/16/24 History release rivaroxaban 20 mg tablet 20 mg PO QPM #30 tabs 05/16/24 05/16/24 Rx sertraline 100 mg tablet 100 mg PO QAM 05/16/24 05/16/24 History Patient History Medical History 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 hx x1 Black lung disease Diabetes mellitus Pancreatic cancer Neuroendocrine / dx 7 yr ago ...sx intervention Surgical History History of liver biopsy History of bronchoscopy History of endoscopy History of surgery FOR ABCESS S/P SX ( TOTAL OF 2 OR 3 PROCEDURES ) History of colonoscopy S/P cataract extraction bilateral History of dental surgery H/O resection of pancreas WITH REMOVAL OF SPLEEN Family History Unknown Diabetes Cardiac disorder Lung disease Cancer Hypertension Father Pancreatic cancer Diabetes Cancer Hypertension Brother Hypertension Mother Stroke Brain cancer Other Family history of colon cancer in father No family history of bleeding disorder No significant family history Denies family history of Ovarian cancer Prostate cancer Hearing loss Heart disease Myocardial infarction Breast cancer Colorectal cancer Asthma Social History Smoking Status: Former smoker Tobacco Type: Cigarettes Age Started Using Tobacco: 18; Age Quit Using Tobacco: 45; packs per day: 0; Second Hand Exposure: No; Hx Alcohol Use: Yes Alcohol type: beer Alcohol Intake Frequency: 4 or More x per/Week Hx Substance Use: No Preferred Language: Bangladeshi Communication Ability: Effective Visual Impairment: No Limitations Hearing Ability: Normal Transit Vehicle Inspector Required: No Beliefs That Will Affect Care: None marital status: Current Living Situation: Spouse Current Living Situation Comment: [facility] current occupational status: retired How many Children do You have: 2 Feels Safe at Home: Yes Childhood Exposure to Second-Hand Smoke: No Diet: regular Diet Comment: regular Dental Care, Regularly: No Physical Activity Frequency: 5-6 Times per Week Seatbelt Use: always Sunscreen Use: Yes Assistive Devices: Oxygen - at Night Review of Systems Review of Systems: All systems reviewed & are unremarkable except as noted in HPI & below Physical Exam Physical Exam: General: Comfortable HEENT: Sclerae anicteric Lungs: No wheezes, few scant crackles at bases Cardiac: Regular rate and rhythm, no murmurs. Vascular: 2+ radial Abdomen: Soft, nontender Extremities: Well perfused, no peripheral edema Neuro: Nonfocal Psych: Alert orient x3, normal affect and mood Results & Data Vital Signs (Past 12 Hours) Vital Signs Temp Pulse Pulse Pulse Resp BP BP 05/18/24 13:46 88 20 05/18/24 12:43 98.1 F 77 24 120/82 05/18/24 08:50 89 114/75 05/18/24 08:28 146 H 138/74 05/18/24 08:22 95 H 18 05/18/24 08:00 130 H 05/18/24 08:00 05/18/24 08:00 98.2 F 129 H 16 138/74 05/18/24 07:24 05/18/24 05:02 113 H 120/83 Pulse Ox O2 Del Method O2 Flow Rate 05/18/24 13:46 98 Room Air 05/18/24 12:43 93 Room Air 05/18/24 08:50 05/18/24 08:28 05/18/24 08:22 92 Nasal Cannula 3 05/18/24 08:00 05/18/24 08:00 Nasal Cannula 2 05/18/24 08:00 96 Nasal Cannula 3 05/18/24 07:24 Nasal Cannula 2 05/18/24 05:02 PG Care Time/CCT Total # of Minutes Spent Total Time Spent with Patient: Total time spent is greater than 50% in coordination of care (as documented) at patient's floor/unit and/or counseling patient: Coding Level of Care Code 69002 INT INP/OBS CARE 2/55MIN Diagnoses Paroxysmal atrial fibrillation I48.0
[2024-05-19 08:26] LABS: Albumin Globulin Ratio 0.8 (0.9-2); BUN Creatinine Ratio 23.8 (10-20); Bilirubin,Total 0.9 mg/dl (0.2-1.0); Calcium 8.5 mg/dl (8.6-10.3); Creatinine Clr Calc Pharmacy 104.1 ml/min; Potassium 4.1 mmol/L (3.5-5.1)
--- NOTE | 2024-05-19 10:07 | Pulmonology Progress Note ---
Date of Service May 19, 2024 Assessment & Plan (1) Pulmonary emphysema: (2) Restrictive pattern present on pulmonary function testing: (3) Acute on chronic respiratory failure with hypoxemia: (4) Abnormal chest CT: (5) COPD (chronic obstructive pulmonary disease): Plan CT chest 05/24/2023 personally reviewed: Centrilobular and paraseptal emphysema appreciated bilaterally minimal dependent atelectasis bilateral lower lobes Minimal mediastinal and hilar lymphadenopathy PFT 01/14/2024 personally reviewed: Mild to moderate restrictive lung dysfunction, no obstruction, moderate decrease in DLCO FVC 3.09 L 70%, FEV1 2.25 L 68%, FEV1/FVC 72%, TLC 78%, RV/TLC 913%, DLCO 61%, DLCO/VA 92% Chest x-ray 05/16/2024 personally reviewed: Portable film, good inspiratory effort, increased hilar markings appreciated bilaterally with some increase reticular marking Bilateral costophrenic and cardiophrenic angles are clean --Acute on chronic hypoxic respiratory failure Respiratory BioFire negative for everything on 05/16/2024 Procalcitonin 0.16 Patient does have extensive history of mediastinoscopy as well as bronchoscopies back in [address] Glaser as well as Dr. Chester. As per the previous records everything was negative for malignancy --COPD with emphysema Supposed to be on Trelegy 100 at home but unfortunately is not able to afford it Patient does not seem to be spastic, I think it is reasonable to DC Solu-Medrol --Abnormal chest CT Patient does seem to have some increased reticular markings in the periphery He does have history of rheumatoid arthritis and he is also on methotrexate both of which can cause ILD like picture PFT shows mild restrictive pattern with moderate decrease in DLCO --History of rheumatoid arthritis On methotrexate and folic acid --History of pulmonary emboli with new onset A-fib On Xarelto --CEDRICK Noncompliant with CPAP Admission and Anticipated Discharge Date Admission Date: May 16, 2024 Supervising Physician Co-Signing Physician Notes I saw and evaluated the patient with Ernst Haq PA-C, and agree with findings and plan as documented in the note. Patient seen and examined at bedside. No acute distress, no adverse events overnight He still is feeling much better. He was saturating well on room air It was excited to go home today Denies any cough, no hemoptysis No dizziness Constitutional: No acute distress HEENT: EOMI, PERRLA Respiratory system: No wheeze, no rhonchi, minimal crackles bilateral lower lobes as well as left side anteriorly, questionable Velcro CVS: S1-S2 positive, no murmurs or gallops Abdomen: Soft, nontender, nondistended, positive bowel sounds x4 Extremities: +2 pulses bilaterally radialis/ dorsalis pedis, no cyanosis, minimal pitting edema bilateral lower extremity Neuro: Awake alert oriented x3 Psych: Normal mood and affect G/U: No Beebe Plan: Follow-up autoimmune workup. Given that the patient has splenectomy as well as immunosuppressed, I think it is reasonable for him to be on antibiotics, QTc 409 Images from outside chest CT reviewed. Exam consistent with findings of prior study, no significant worsening compared to CT chest 06/13. He does have a history of CEDRICK but he is noncompliant with CPAP. This is also one of the factors while he got A-fib. Continue with nebulized bronchodilators, would recommend discharging on nebulized budesonide as well as Perforomist or Brovana as other inhalers are expensive for him to get. Addition of revefenacin could be thought of when he follows up with Ernst Haq in the outpatient setting. Patient would likely benefit from HRCT as previously ordered in the outpatient setting. That exam is scheduled for next month (05/30/2024 @1220). He is also scheduled to see Ernst Haq PA-C on 06/07/2024 @ 0900. Please note the above document was generated using voice recognition software. It may contain grammatical, syntax or spelling errors.Any formal questions or concerns about the content, text or information contained within the body of this dictation should be directly addressed to the provider for clarification. Subjective Patient seen and evaluated at bedside. He is out of bed to chair at this time. He is saturating well on room air. Heart rate has been better controlled at this time. Overall, patient reports improvement. Review of Systems Review of Systems: As per subjective. Physical Exam Physical Exam: VITAL SIGNS Vital signs and nursing notes were reviewed. GENERAL 68-year-old male appearing his stated age who is in no acute distress. Communicates well with provider and answers questions appropriately. LUNGS Chest wall evaluation demonstrates a normal chest wall A:P diameter. Auscultation reveals bibasilar rales. CARDIAC RRR with S1/S2. No murmur, rubs, or gallops appreciated. ABDOMEN Abdominal inspection demonstrates an obese abdomen. BS normoactive all four quadrants. No tenderness, palpable masses, or ascites noted. PSYCH A&Ox3 and cooperates fully with examiner. Pt is very pleasant and interacts well with examiner. Skin: no rashes, warm and dry Lymphatic: no cervical or axillary lymphadenopathy Results & Data Results & Data Vital Signs (Past 12 Hours) Vital Signs Temp Pulse Pulse Resp BP Pulse Ox O2 Del Method 05/19/24 07:29 37.3 C 86 18 148/89 H 90 Room Air 05/19/24 07:01 90 16 91 Room Air 05/19/24 07:00 90 05/19/24 03:04 36.8 C 85 18 155/93 H 91 Nasal Cannula 05/18/24 22:42 36.8 C 80 18 136/83 93 Nasal Cannula O2 Flow Rate 05/19/24 07:29 05/19/24 07:01 05/19/24 07:00 05/19/24 03:04 2.0 05/18/24 22:42 2.0 PG Care Time/CCT Total # of Minutes Spent Total Time Spent with Patient: Total time spent is greater than 50% in coordination of care (as documented) at patient's floor/unit and/or counseling patient: Coding Level of Care Code 00863 SUB INP/OBS CARE 2/35MIN Diagnoses Pulmonary emphysema J43.9 Restrictive pattern present on pulmonary function testing R94.2 Acute on chronic respiratory failure with hypoxemia J96.[address] R93.89 COPD (chronic obstructive pulmonary disease) J44.9
--- NOTE | 2024-05-19 11:17 | XCELERA ---
[id number] \\ISCV-PHAN\ISCV_PDF_Reports\[id number]
[2024-05-19 11:29] VITALS: BP 115/73; TEMP 97.7
--- NOTE | 2024-05-19 12:43 | Discharge Summary ---
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 Symptoms started shortly after falling and breaking his ribs on the left side. He was placed on antibiotics on 04/23 (Augmentin and doxycycline x 5 days). He reports that his symptoms improved after completing the course of antibiotics, but then a week later, his symptoms started to return: Worsening productive cough, KEARNS (new for him), and night sweats. He also had a CXR done last week, and was placed on a steroid taper, which he has largely completed at time of admission. Despite these treatments, he continued to feel that his symptoms are worsening. He was admitted with acute on chronic hypoxic respiratory failure, COPD exacerbation, and left upper lobe pneumonia. #Sepsis POA due to VIVIANE pneumonia/acute on chronic hypoxic respiratory failure/COPD exacerbation-Failure of outpatient treatments.WBC count elevated at 29.70 on arrival but with chronic leukocytosis post splenectomy and on steroids; with fevers at home now resolved. Respiratory BioFire negative, CXR revealed possible early pneumonia in the left upper lobe, was requiring 4LNC and typically is only on 2LNC hs and no O2 during daytime. Now weaned off of oxygen, much improved. Has a hoarse voice/laryngitis but no oral thrush on examination. He was given IV mag on arrival for mag 1.4. Blood cultures remain no growth to date and sputum culture was never obtained He was treated with ceftriaxone and azithromycin which was then converted to doxycycline due to cardiac arrhythmias -Discharge to home on 3 and half more days of oral cefdinir and doxycycline -consult PULM appreciated-discontinued steroids and agreed with antibiotics given immune suppression with history of splenectomy. Also recommended going home with budesonide and Perforomist scheduled nebulizers as he has not been able to afford his inhaler -He received incentive spirometry, flutter valve, and scheduled DuoNebs -Stable for discharge to home -Follow-up with pulmonology as scheduled in 2 weeks with high-resolution CT scan of the chest prior to that as previously scheduled -Rheumatoid factor, BOBBY, anti-CCP, DARCIE level pending as ordered by pulmonology #Paroxysmal atrial fibrillation-rapid/new onset HFmrEF-went into rapid A-fib with rates as high as the 200s on the night of 05/17 into 05/18. Given multiple boluses of IV amiodarone and IV Lopressor. Converted to normal sinus rhythm spontaneously on the morning of 05/18 after about 10 hours. He is already on Xarelto for history of DVT. Seen by cardiology. Echocardiogram performed which did show moderate to severe LV dysfunction but was thought to be low due to tachycardia during the echo. Cardiology recommends discontinuing amiodarone and repeat limited echo when in sinus rhythm Limited echo with improved but still mildly reduced EF at 40-45%, no significant valvular disease, no regional wall motion abnormalities. -Started metoprolol 25 Mg p.o. twice daily and had no further rapid A-fib throughout hospitalization-convert to Toprol XL 50 mg p.o. daily on discharge -Follow-up with cardiology after discharge -Consider adding on Entresto if EF remains low -He is already on Xarelto for anticoagulation for history of DVT and should remain on this as well for atrial fibrillation #Rheumatoid arthritis-no acute issues. RA and methotrexate could lead to pulmonary fibrosis. He is following up with pulmonology after discharge. Serological studies pending as previously noted. -Hold methotrexate (with patient normally takes on Fridays) in the setting of acute infection-he can resume this on Thursday #Leukocytosis/thrombocytosis/History of splenectomy-chronic, somewhat more el evated in setting of infection and recent steroid use. This is secondary to h/o splenectomy for h/o pancreatic neuroendocrine tumor -Follow CBC as an outpatient #History of unprovoked DVT-Continue Xarelto daily #[id number] significant hyperglycemia on admission with BSG in 400s secondary to previous outpatient steroid burst, Last A1c at 9.5% on 05/16/2024. Improved here with increased doses of insulin Discharged home on usual Lantus 50 and metformin. He is no longer on steroids -Continue gabapentin home dose for neuropathy -continue ASA #Depression/anxiety-no acute issues -continue home sertraline #GERD-continue PPI DVT proph-Xarelto Dispo-discharge to home Notes For Next Care Provider Follow-up with cardiology Admission HPI Per Admitting Provider Elliot is a pleasant 68-year-old male with PMH of rheumatoid arthritis, T2DM, HTN, splenectomy, PE (on rivaroxaban), and COPD. He presented on 05/16 for ongoing low-grade fever, night sweats, SOB/dyspnea, and cough x 1 month. Patient reports that his symptoms started shortly after falling and breaking his ribs on the left side approximately 1 month ago. He was placed on antibiotics on 04/23 (Augmentin and doxycycline x 5 days). He reports that his symptoms improved after completing the course of antibiotics, but then a week later, his symptoms started to return. He reports that he has had worsening productive cough, KEARNS (new for him), and night sweats. He also had a CXR done last week, and was placed on a steroid taper, which she has largely completed at this time. Despite these treatments, continues to feel that his symptoms are worsening. Patient is on supplemental oxygen at baseline (2L at bedtime and during the daytime as needed). No CPAP at night. Patient took all of his regular morning medicine today, including his Xarelto which she takes for history of a DVT/PE. He reports no recent change in medications other than taking his prednisone taper. He is not on prednisone at baseline for his RA, but does take methotrexate weekly on Fridays. Patient reports his home pulse ox has been around 92% on 2L NC. He reports that he has had multiple sick contacts (everyone in his house has been sick including his grandchildren). He denies smoking, tobacco use, or recent alcohol use. Patient is hypertensive at 151/91 at time of admission; SpO2 94% on 2L NC. ED course: Ceftriaxone 2000 mg IV Azithromycin 500 mg p.o. ROS: Patient endorses low-grade fevers, night-sweats, LONG, productive cough (yellow sputum production), KEARNS (new for him), nausea, and chronic neuropathy in the feet. Patient denies chills, body aches, dizziness, lightheadedness, pleuritic CP, hemoptysis, SOB at rest, abdominal pain, vomiting, diarrhea, blood in the urine/stool, or melena. Discharge Exam Constitutional WD/WN, vitals as above Respiratory normal respiratory effort; no cough Auscultation: + crackles (at bases); no rhonchi and no wheezes Cardiovascular RRR, no murmur, no edema Gastrointestinal (Abdomen) normal bowel sounds, soft, nontender, no hepatosplenomegaly Psychiatric A+Ox3, euthymic affect Discharge Plan Discharge Items Patient Disposition: Home - Self-Care Reason For Visit: PNA Discharge Diagnosis: Pneumonia Rapid atrial fibrillation Heart failure with midrange ejection fraction Condition on Discharge: Good Activity: As commented below Lifting: Gradually increase as tolerated Bathing: No limitations Exercise/Sports: Gradually increase as tolerated Non-emergency contact: Primary Care Provider, Director Transportation and Data Network Architect Call non-emergency contact if: you have any medication questions and your symptoms worsen Follow-up/Referrals: Harriet Carranza MD [Primary Care Provider] - (Follow-up within 1 to 2 weeks.) Abraham Pinto MD [Physician] - (Dr. Pinto' office will contact you with your Cardiology appointment date and time) Ernst Haq PA-C [Hospitalist] - (Please keep your follow-up appointment as previously scheduled with Ernst in pulmonology clinic.) Diet: Carb Consistent or DM2 and Low Sodium (2gm) Fluids: 1800ml (7 cups) Addtl Attending Provider Instructions: You were admitted with pneumonia and low oxygen levels. You tested negative for viral infections. You were initially treated with steroids along with antibiotics but then the steroids were discontinued. Please finish out 3 and half more days of the 2 antibiotics called cefdinir and doxycycline. You do not need any more steroids. You were weaned off supplemental oxygen. Please keep your previously scheduled appointment for a CT scan of the chest and for follow- up with the mud grinder. You were started on 2 different nebulized medications to be taken every day, twice a day to replace the inhaler that is not affordable. While you were here, you had a rapid irregular heart rhythm called atrial fibrillation. You were started on a new medication called metoprolol and will need close follow-up with the pole peeling machine operator helper after discharge. Fortunately, your heart converted back to a normal rhythm on its own. If you noticed a fast heart rate in the future, please contact your pole peeling machine operator helper or primary care physician for further guidance. Certainly, if you had lightheadedness, pass out, or have chest pain, please come to the hospital right away. On the echocardiogram that you had of your heart, your heart function is mildly reduced. The metoprolol will help with this but there may be other medications the pole peeling machine operator helper will want to place you on in the future if this does not improve. This may have just been as a result of your rapid heart rhythm. It is important in the meantime that you follow a low-sodium diet and restrict your fluid intake to 1800 mL/day. This will keep you from building up with excessive fluid from heart failure. Call your Primary Care doctor if any of the following symptoms or problems start or get worse: * Shortness of breath or difficulty breathing * Wake up at night short of breath * Chest pain * Cough * Swelling of your hands, feet, or legs * More fatigued or tired with your normal activity * Palpitations - sudden fast heart beats WEIGHT * Weigh yourself every morning after using the bathroom. * Use the same scale. * Wear the same amount of clothing. * Write your weight down on a chart. * Call your Primary Care doctor if you gain more than 2-3 pounds in 1-2 days. MEDICATIONS * Use this discharge instruction sheet for medication instructions. * Take your medications at the time your doctor ordered. * Do not skip a dose of your medicines. * If you miss a dose of medicine, take it as soon as possible, but DO NOT DOUBLE A DOSE. * Read your medicine information when you get home. * Know all of the side effects of your medicine. If in doubt, ask your pharmacist * Call your Primary Care doctor's office if you have any side effects. * Be sure all of your doctors know what medicine and herbs you take (including cold, flu, and herbal medicine). Take the following with you to your follow-up doctor appointments: * Weight Chart * Medication List * List of questions Do not drink excessive alcohol, beer or wine. Pending Studies at Discharge: Yes (Blood cultures-no growth to date) Stand-Alone Forms: My [place], Smoking Cessation Medications and DC Order Prescriptions: New doxycycline hyclate 100 mg Capsule 100 mg PO BID Qty: 7 0RF formoterol fumarate [Perforomist] 20 mcg/2 mL Solution For Nebulization 20 mcg NEB BIDR Qty: 120 0RF budesonide 0.25 mg/2 mL Suspension For Nebulization 0.25 mg NEB BIDR Qty: 60 0RF cefdinir 300 mg capsule 300 mg PO BID Qty: 7 0RF metoprolol succinate [Toprol XL] 50 mg tablet extended release 24 hr 50 mg PO HS Qty: 30 0RF Continued (DME) pen needle, diabetic [BD Marely 2nd Gen Pen Needle] 32 gauge x 5/32" needle See Rx Instructions .Route Qty: 100 1RF Rx Instructions: USE TO INJECT BASAGLAR ONCE DAILY OR DIRECTED. DX CODE: E11.9 (DME) Oxygen Home Liters Per Minute See Rx Instructions .Route Qty: 1 0RF Rx Instructions: 2L/MIN VIA NASAL CANNULA AT HS. USE FOR ~2 hrs daily w/AMBULATION. multivitamin [Daily Multi-Vitamin] tablet 1 tab PO QAM aspirin [Adult Aspirin Regimen] 81 mg tablet,delayed release (DR/EC) 81 mg PO QAM folic acid 1 mg tablet 1 mg PO QAM Qty: 90 3RF rivaroxaban 20 mg tablet 20 mg PO QPM Qty: 30 5RF benzonatate 200 mg capsule 200 mg PO TID PRN (Reason: cough) Qty: 30 0RF gabapentin 800 mg tablet 800 mg PO TID 90 Days Qty: 270 1RF sertraline 100 mg tablet 100 mg PO QAM metformin 1,000 mg tablet 1,000 mg PO BIDM omeprazole 20 mg capsule,delayed release(DR/EC) 20 mg PO DAILYBB Rx Instructions: TAKE 1 CAPSULE BY MOUTH ONCE DAILY IN THE MORNING EVERY MORNING BEFORE BREAKFAST methotrexate sodium 2.5 mg tablet 20 mg PO WK Rx Instructions: FRIDAYS albuterol sulfate 90 mcg/actuation Hfa Aerosol Inhaler 2 puff INHALATION QID PRN (Reason: Shortness Of Breath Or Wheezing) insulin glargine [Basaglar KwikPen U-100 Insulin] 100 unit/mL (3 mL) insulin pen 50 unit subcut QAM Discontinued prednisone 10 mg tablet See Rx Instructions PO DAILY Qty: 24 0RF Rx Instructions: 4 tab po daily x 3 days; 3 tab po daily x 3 days; 1 tab po daily x 3 days Trelegy Ellipta 100-62.5-25 mcg blister with device 1 inh INHALATION .EVERY 24 HOURS Discharge Orders: Discharge Order- CHF (Routine); Ordered 05/19/24 Ordered By: Ranjana Farley Admission Data Admit Date/Time: 05/16/24 17:46 Attending Provider: Ranjana Farley Admit Provider: Paddy Kuhn Primary Care Provider: Harriet Carranza Other Providers: Paddy Kuhn; Marcell Ambrocio; Sacha Wolff Hospital Stay Data Consultations 05/16/24 16:41 ED Decision to Admit Stat 05/17/24 16:04 Consult Pulmonology Routine 05/18/24 03:15 Consult Cardiology Routine Diagnostic Imagining Performed Echocardiogram x 2 Pending Results Patient Have Any Pending Studies at Discharge: Yes (Blood cultures-no growth to date) Discharge Instructions Given to Patient (Per Discharging Provider) You were admitted with pneumonia and low oxygen levels. You tested negative for viral infections. You were initially treated with steroids along with antibiotics but then the steroids were discontinued. Please finish out 3 and half more days of the 2 antibiotics called cefdinir and doxycycline. You do not need any more steroids. You were weaned off supplemental oxygen. Please keep your previously scheduled appointment for a CT scan of the chest and for follow- up with the mud grinder. You were started on 2 different nebulized medications to be taken every day, twice a day to replace the inhaler that is not affordable. While you were here, you had a rapid irregular heart rhythm called atrial fibrillation. You were started on a new medication called metoprolol and will need close follow-up with the pole peeling machine operator helper after discharge. Fortunately, your heart converted back to a normal rhythm on its own. If you noticed a fast heart rate in the future, please contact your pole peeling machine operator helper or primary care physician for further guidance. Certainly, if you had lightheadedness, pass out, or have chest pain, please come to the hospital right away. On the echocardiogram that you had of your heart, your heart function is mildly reduced. The metoprolol will help with this but there may be other medications the pole peeling machine operator helper will want to place you on in the future if this does not improve. This may have just been as a result of your rapid heart rhythm. It is important in the meantime that you follow a low-sodium diet and restrict your fluid intake to 1800 mL/day. This will keep you from building up with excessive fluid from heart failure. Call your Primary Care doctor if any of the following symptoms or problems start or get worse: * Shortness of breath or difficulty breathing * Wake up at night short of breath * Chest pain * Cough * Swelling of your hands, feet, or legs * More fatigued or tired with your normal activity * Palpitations - sudden fast heart beats WEIGHT * Weigh yourself every morning after using the bathroom. * Use the same scale. * Wear the same amount of clothing. * Write your weight down on a chart. * Call your Primary Care doctor if you gain more than 2-3 pounds in 1-2 days. MEDICATIONS * Use this discharge instruction sheet for medication instructions. * Take your medications at the time your doctor ordered. * Do not skip a dose of your medicines. * If you miss a dose of medicine, take it as soon as possible, but DO NOT DOUBLE A DOSE. * Read your medicine information when you get home. * Know all of the side effects of your medicine. If in doubt, ask your pharmacist * Call your Primary Care doctor's office if you have any side effects. * Be sure all of your doctors know what medicine and herbs you take (including cold, flu, and herbal medicine). Take the following with you to your follow-up doctor appointments: * Weight Chart * Medication List * List of questions Do not drink excessive alcohol, beer or wine. Total Time Total Time Spent Total Time Spent (In Minutes): 35 minutes Total Time Includes: Examination of the Patient, Discharge Planning, Medication Reconciliation and Communication With Other Providers (Cardiology) Coding Level of Care Code 82591 INP/OBS DISCH >30 MIN Diagnoses Left upper lobe pneumonia J18.9 Paroxysmal atrial fibrillation I48.0 Hypoxia R09.02 Diabetes mellitus type 2, insulin dependent E11.9; Z79.4
[2024-05-19] MEDS: MAGNESIUM CHLORIDE W/CALCIUM 64MG DELAYED REL TAB PO ONE (12:50)
[2024-05-19] MEDS: ALBUT/IPRATROP 3MG/0.5MG NEB 3 ML VIAL NEB PRN (12:54)
[2024-05-19 12:57] VITALS: RESP 16; O2SAT 93
[2024-05-19 13:50] VITALS: PULSE 88
--- NOTE | 2024-05-19 21:35 | Electrocardiogram Report ---
Test Reason : Blood Pressure : */* mmHG Vent. Rate : 164 BPM Atrial Rate : 150 BPM P-R Int : * ms QRS Dur : 84 ms QT Int : 296 ms P-R-T Axes : * -22 -29 degrees QTcB Int : 488 ms Atrial fibrillation with rapid ventricular response Nonspecific ST and T wave abnormality Prolonged QT Abnormal ECG When compared with ECG of 16-May-2024 15:29, Atrial fibrillation has replaced Sinus rhythm Vent. rate has increased by [address] now depressed in Anterior leads Nonspecific T wave abnormality now evident in Inferior leads Confirmed by Sacha Wolff ([id number]) on 05/19/2024 9:34:49 PM Referred By: REFERRED SELF Confirmed By: Sacha Wolff
--- NOTE | 2024-05-19 21:35 | Electrocardiogram Report ---
Test Reason : Blood Pressure : */* mmHG Vent. Rate : 146 BPM Atrial Rate : 127 BPM P-R Int : * ms QRS Dur : 96 ms QT Int : 282 ms P-R-T Axes : * -28 -13 degrees QTcB Int : 439 ms Poor data quality, interpretation may be adversely affected Atrial fibrillation with rapid ventricular response Nonspecific ST and T wave abnormality Abnormal ECG When compared with ECG of 18-May-2024 00:54, No significant change Confirmed by Sacha Wolff ([id number]) on 05/19/2024 9:35:16 PM Referred By: REFERRED SELF Confirmed By: Sacha Wolff
--- NOTE | 2024-05-19 21:36 | Electrocardiogram Report ---
Test Reason : Blood Pressure : */* mmHG Vent. Rate : 127 BPM Atrial Rate : * BPM P-R Int : * ms QRS Dur : 90 ms QT Int : 340 ms P-R-T Axes : * -7 37 degrees QTcB Int : 495 ms Atrial fibrillation with rapid ventricular response Prolonged QT Abnormal ECG When compared with ECG of 16-May-2024 15:29, No significant change Confirmed by Sacha Wolff ([id number] on 05/19/2024 9:36:34 PM Referred By: REFERRED SELF Confirmed By: Sacha Wolff
== END 2024-05-19 14:19 | disposition home or self-care (01) | DRG 871 ==
LOC: ED 14:59 → SUATTDRO 17:46 → EDINP 17:46 → 2N 18:38 → 2S 05-18 01:30
DX: I21.4 Non-ST elevation (NSTEMI) myocardial infarction; Z86.718 Personal history of other venous thrombosis and embolism; Z79.899 Other long term (current) drug therapy; Z99.81 Dependence on supplemental oxygen; Z79.4 Long term (current) use of insulin; Z79.631 Long term (current) use of antimetabolite agent; Z79.01 Long term (current) use of anticoagulants; J18.9 Pneumonia, unspecified organism; M06.9 Rheumatoid arthritis, unspecified; Z79.84 Long term (current) use of oral hypoglycemic drugs; J43.9 Emphysema, unspecified; Z91.199 Patient's noncompliance with other medical treatment and regimen due to unspecified reason; Z79.52 Long term (current) use of systemic steroids; Z90.81 Acquired absence of spleen; Z86.711 Personal history of pulmonary embolism; Z88.8 Allergy status to other drugs, medicaments and biological substances; A41.9 Sepsis, unspecified organism; F32.A Depression, unspecified; E11.65 Type 2 diabetes mellitus with hyperglycemia; F41.9 Anxiety disorder, unspecified; E11.42 Type 2 diabetes mellitus with diabetic polyneuropathy; Z79.82 Long term (current) use of aspirin; J44.0 Chronic obstructive pulmonary disease with (acute) lower respiratory infection; I48.91 Unspecified atrial fibrillation; K21.9 Gastro-esophageal reflux disease without esophagitis; G47.33 Obstructive sleep apnea (adult) (pediatric); Z87.891 Personal history of nicotine dependence; J44.1 Chronic obstructive pulmonary disease with (acute) exacerbation; D84.821 Immunodeficiency due to drugs; J96.21 Acute and chronic respiratory failure with hypoxia; E78.00 Pure hypercholesterolemia, unspecified